=== PATIENT | female | born 1950 | race Caucasian/White ===

== ENCOUNTER → 2016-12-27 | Outpatient (CLI) | payer MEDICARE ==
[2016-12-27 14:38] VITALS: RESP 16; TEMP 98.3
[2016-12-27 14:42] VITALS: BMI 41.2
[2016-12-27 15:23] LABS: EKG EKG PERFORMED
[2016-12-27 16:00] LABS: CH 31.1; CHCM 32.2; HCT 41.5 % (34.0-46.0); HDW 2.29; HGB 13.4 gm/dL (11.4-16.0); MCH 31.3 pg (25.0-35.0); MCHC 32.3 g/dL (31.0-37.0); Mean Platelet Volume 7.7; RBC 4.28 m/uL (3.80-5.40); RDW 13.3 % (11.5-15.5)
[2016-12-27 16:28] LABS: ALT 25 U/L (9-52); AST 27 U/L (14-36); Alkaline Phosphatase 92 U/L (38-126); Anion Gap 11 mmol/L; Blood Urea Nitrogen 29 mg/dL (7-17); Calcium 10.6 mg/dL (8.4-10.2); Carbon Dioxide 28 mmol/L (22-30); Chloride 102 mmol/L (98-107); Cholesterol 213 mg/dL (<200); Glucose 92 mg/dL (74-99); HDL Cholesterol 73 mg/dL (40-60); Iron 111 ug/dL (37-170); Non-African American GFR(MDRD) 45 (>60 ml/min/1.73 sqM); Potassium 5.1 mmol/L (3.5-5.1); Sodium 141 mmol/L (137-145); Total Bilirubin 0.3 mg/dL (0.2-1.3); Total Protein 7.8 g/dL (6.3-8.2); Triglycerides 119 mg/dL (<150)
[2016-12-27 16:36] LABS: % Iron Saturation 37.5 % (20-50); Total Iron Binding Capacity 296 ug/dL (265-497)
[2016-12-27 17:34] LABS: Vitamin B12 822 pg/mL
[2016-12-27 19:48] LABS: Hemoglobin A1C 5.6 % (4.2-6.1)
--- NOTE | 2017-01-26 22:57 | P.PN ---
Progress Note - Text DATE OF SERVICE: 12/27/2016 CHIEF COMPLAINT: Initial bariatric assessment. HISTORY OF PRESENT ILLNESS: Mary Sears is a 66-year-old female who comes in with long-standing history of morbid obesity. Separately, she has history of gastroesophageal reflux disease where she had emergent hiatal hernia repair done. She then comes back with recurrent symptoms. At her 5-foot and 3/4-inch frame, her ideal body weight is 127 pounds. She comes in weighing 216 pounds. She is 89 pounds over weight. Body mass index is 41.2. She has undergone medical supervised weight loss with minimal improvement of her weight. Now, she presents for further evaluation and management. She has completed pulmonary evaluation and consultation. She is yet get a psych assessment. Now, she is looking for further evaluation and management. PAST MEDICAL HISTORY: 1. Gastroesophageal reflux disease. 2. Sleep apnea. 3. Hypertensive heart disease. 4. Osteoarthritis of bilateral knees. 5. Osteoarthritis of bilateral hips. PAST SURGICAL HISTORY: 1. Previous history of diaphragmatic hiatal hernia now with recurrence. 2. Appendectomy. 3. Hysterectomy. 4. Fibroid removal. MEDICATIONS: 1. Vitamin D. 2. Naproxen. 3. Valsartan hydrochlorothiazide. ALLERGIES: MORPHINE. SOCIAL HISTORY: Lifelong nontobacco user. FAMILY HISTORY: Pertinent for morbid obesity including hypertension. ORGAN SYSTEMS: CONSTITUTIONAL: [place] body weight of 127 pounds. She is 89 pounds overweight. Present weight 216 pounds. HEENT: No troubles with vision, hearing or dysphagia. ENDOCRINE: No reports of thyroid disorders or blood sugar glucose intolerance. RESPIRATORY: History of obstructive sleep apnea. No recent pneumonias. She does have intermittent aspiration secondary to her severity of reflux disease. CARDIOVASCULAR: History of hypertension. No reports of palpitations. No reports of chest pain or heart attack. GASTROINTESTINAL: Severe gastroesophageal reflux disease. No current fatty food intolerance. MUSCULOSKELETAL: History of diffuse osteoarthritis including bilateral hips and knees. NEURO: No reports of stroke or seizure disorder. PSYCH: No reports of depression or suicidal ideation. HEMATOLOGIC: No reports of DVTs or pulmonary embolism. PHYSICAL EXAM: VITAL SIGNS: 98.3, 16. Height of 5-foot 3/4-inch frame, 216 pounds. Body mass index 41.2. GENERAL: Well-developed female in no acute distress. HEENT: No scleral icterus. Extraocular movements grossly intact. Moist oral mucosa. NECK: Supple. No lymphadenopathy. CHEST: Nonlabored respirations. Equal bilateral excursions. CARDIOVASCULAR: Regular rate and rhythm. ABDOMEN: Protuberant, soft, nontender, nondistended. MUSCULOSKELETAL: No clubbing, cyanosis or edema. NEURO: No focal or lateralizing signs. LABS: Bariatric metabolic panel demonstrates elevated white count of 13,000. BUN elevated at 29. Creatinine elevated at 1.2. Calcium elevated at 10.6. Cholesterol elevated at 213. LDL elevated at 116. HDL elevated at 73. Vitamin D is low at 28.0. Thyroid stimulating hormone is within normal limits. EKG reviewed and demonstrating findings consistent with occasional PVCs. ASSESSMENT: 1. Morbid obesity due to excess calories. 2. Body mass index 41.2. 3. Leukocytosis of unclear etiology. 4. Hypertensive nephropathy. 5. Hypercalcemia. 6. Hypercholesterolemia. 7. Vitamin D deficiency. 8. Metabolic syndrome. 9. Obstructive sleep apnea. 10. Osteoarthritis of bilateral knees. 11. Osteoarthritis of the bilateral hips. PLAN: 1. As she has previous hiatal hernia repair, this also puts her at risk for increased complication such as stricture as well as dysphagia and abdominal pain. 2. The [place] [facility] data was also reviewed demonstrating potential outcomes including weight loss given her procedure of choice as a gastric bypass. 3. She is also pending psych assessment in the interim. 4. She does have PVCs, however, she has been medically cleared by her monologist as well. 5. DVT prophylaxis. 6. Antibiotic prophylaxis. 7. Inpatient hospitalization anticipated over 2 nights. 8. A second generation bariatric consent form was reviewed in detail including potential risks of leaks which she and her family demonstrated an understanding. 9. Recommend followup upon completion of her bariatric profile. 10. She does have elevated white count which her laboratory results should be repeated.
== END | disposition home or self-care (01) ==
LOC: BARWHC3 13:54
PROVIDERS: ATTEND Surgery Plastic and Reconstructive Surgery
DX: Z01.818 Encounter for other preprocedural examination (principal); E89.1 Postprocedural hypoinsulinemia; D50.8 Other iron deficiency anemias; E44.0 Moderate protein-calorie malnutrition; E55.9 Vitamin D deficiency, unspecified; Z68.41 Body mass index [BMI] 40.0-44.9, adult; I11.9 Hypertensive heart disease without heart failure; G47.30 Sleep apnea, unspecified
CPT/HCPCS: 84425; 80061; 80053; 82607; 82728; 83036; 82746; 83540; 83550; 84443; 85027; 82306; 93005; 36415; G0463; 99211

== ENCOUNTER → 2017-01-10 | Outpatient (CLI) | payer MEDICARE ==
[2017-01-10 16:01] VITALS: BP 164/85; PULSE 76; RESP 16; TEMP 98.3; BMI 41.2
--- NOTE | 2017-01-30 20:50 | P.PN ---
Progress Note - Text DATE OF SERVICE: 01/10/2017 CHIEF COMPLAINT: Bariatric assessment. HISTORY OF PRESENT ILLNESS: Mary Sears is a 66-year-old female who presented to the bariatric center just 2 weeks ago. She comes in with history of morbid obesity. She has history of recurrent gastroesophageal reflux disease from a failed emergent hiatal hernia repair. As a result of her obesity, she has developed hypertensive heart disease, sleep apnea, and osteoarthritis. At her 5- foot and 3/4-inch frame, her ideal body weight is 127 pounds. She comes in weighing 216 pounds. Her weight has been unchanged. She has tried weight loss through caloric restriction without any success of weight loss. She is 89 pounds over weight. Body mass index is 41.2. Now, she presents for a definitive anti-reflux operation such as a gastric bypass. She is accompanied by her daughter. PAST MEDICAL HISTORY: 1. Gastroesophageal reflux disease. 2. Sleep apnea. 3. Hypertensive heart disease. 4. Osteoarthritis of bilateral knees. 5. Osteoarthritis of bilateral hips. PAST SURGICAL HISTORY: 1. Previous history of diaphragmatic hiatal hernia now with recurrence. 2. Appendectomy. 3. Hysterectomy. 4. Fibroid removal. 5. Upper endoscopy. MEDICATIONS: 1. Vitamin D. 2. Naproxen. 3. Valsartan hydrochlorothiazide. ALLERGIES: MORPHINE. SOCIAL HISTORY: Lifelong nontobacco user. FAMILY HISTORY: Pertinent for morbid obesity including hypertension. ORGAN SYSTEMS: CONSTITUTIONAL: [place] body weight of 127 pounds. She is 89 pounds overweight. Present weight 216 pounds. HEENT: No troubles with vision, hearing or dysphagia. ENDOCRINE: No reports of thyroid disorders or blood sugar glucose intolerance. RESPIRATORY: History of obstructive sleep apnea. No recent pneumonias. She does have intermittent aspiration secondary to her severity of reflux disease. CARDIOVASCULAR: History of hypertension. No reports of palpitations. No reports of chest pain or heart attack. GASTROINTESTINAL: Severe gastroesophageal reflux disease. No current fatty food intolerance. MUSCULOSKELETAL: History of diffuse osteoarthritis including bilateral hips and knees. NEURO: No reports of stroke or seizure disorder. PSYCH: No reports of depression or suicidal ideation. HEMATOLOGIC: No reports of DVTs or pulmonary embolism. PHYSICAL EXAM: VITAL SIGNS: Height of 5-foot 3/4-inch frame, 216 pounds. Body mass index 41.2. Vital Signs Temp 98.3 F 01/10/17 15:53 Pulse 76 01/10/17 15:53 Resp 16 01/10/17 15:53 BP 164/85 01/10/17 15:53 Pulse Ox GENERAL: Well-developed female in no acute distress. HEENT: No scleral icterus. Extraocular movements grossly intact. Moist oral mucosa. NECK: Supple. No lymphadenopathy. CHEST: Nonlabored respirations. Equal bilateral excursions. CARDIOVASCULAR: Regular rate and rhythm. ABDOMEN: Protuberant, soft, nontender, nondistended. MUSCULOSKELETAL: No clubbing, cyanosis or edema. NEURO: No focal or lateralizing signs. LABS: Laboratory Last Values WBC 13.0 k/uL (3.8-10.6) H 12/27/16 15: RBC 4.28 m/uL (3.80-5.40) 12/27/16 15:17 Hgb 13.4 gm/dL (11.4-16.0) 12/27/16 15:17 Hct 41.5 % (34.0-46.0) 12/27/16 15:17 MCV 97.0 fL (80.0-100.0) 12/27/16 15:17 MCH 31.3 pg (25.0-35.0) 12/27/16 15:17 MCHC 32.3 g/dL (31.0-37.0) 12/27/16 15:17 RDW 13.3 % (11.5-15.5) 12/27/16 15:17 Plt Count 384 k/uL (150-450) 12/27/16 15:17 Sodium 141 mmol/L (137-145) 12/27/16 15:17 Potassium 5.1 mmol/L (3.5-5.1) 12/27/16 15:17 Chloride 102 mmol/L (98-107) 12/27/16 15:17 Carbon Dioxide 28 mmol/L (22-30) 12/27/16 15:17 Anion Gap 11 mmol/L 12/27/16 15:17 BUN 29 mg/dL (7-17) H 12/27/16 15:17 Creatinine 1.20 mg/dL (0.52-1.04) H 12/27/16 15:17 Est GFR (MDRD) Af Amer 54 (>60 ml/min/1.73 sqM) 12/27/16 15:17 Est GFR (MDRD) Non-Af 45 (>60 ml/min/1.73 sqM) 12/27/16 15:17 Glucose 92 mg/dL (74-99) 12/27/16 15:[address] Glu mg/dL 114 mg/dL 12/27/16 15:17 Hemoglobin A1c 5.6 % (4.2-6.1) 12/27/16 15:17 Calcium 10.6 mg/dL (8.4-10.2) H 12/27/16 15:17 Iron 111 ug/dL (37-170) 12/27/16 15:17 TIBC 296 ug/dL (265-497) 12/27/16 15:17 % Saturation 37.5 % (20-50) 12/27/16 15:17 Ferritin 15 ng/mL (11-264) 12/27/16 15:17 Total Bilirubin 0.3 mg/dL (0.2-1.3) 12/27/16 15:17 AST 27 U/L (14-36) 12/27/16 15:17 ALT 25 U/L (9-52) 12/27/16 15:17 Alkaline Phosphatase 92 U/L (38-126) 12/27/16 15:17 Total Protein 7.8 g/dL (6.3-8.2) 12/27/16 15:17 Albumin 4.6 g/dL (3.5-5.0) 12/27/16 15:17 Triglycerides 119 mg/dL (<150) 12/27/16 15:17 Cholesterol 213 mg/dL (<200) H 12/27/16 15:17 LDL Cholesterol, Calc 116 mg/dL (0-99) H 12/27/16 15:17 HDL Cholesterol 73 mg/dL (40-60) H 12/27/16 15:17 Vitamin B1 52 ug/L (38-122) 12/27/16 15:17 Vitamin B12 822 pg/mL 12/27/16 15:17 Vitamin D 25-Hydroxy 28.0 ng/mL (30.0-100.0) L 12/27/16 15:17 Folate 8.50 ng/mL 12/27/16 15:17 TSH 1.500 mIU/L (0.465-4.680) 12/27/16 15:17 EKG EKG PERFORMED 12/27/16 15:17 EKG reviewed and demonstrating findings consistent with occasional PVCs. ASSESSMENT: 1. Morbid obesity due to excess calories. 2. Body mass index 41.2. 3. Leukocytosis of unclear etiology. 4. Hypertensive nephropathy. 5. Hypercalcemia. 6. Hypercholesterolemia. 7. Vitamin D deficiency. 8. Metabolic syndrome. 9. Obstructive sleep apnea. 10. Osteoarthritis of bilateral knees. 11. Osteoarthritis of the bilateral hips. 12. Hypertensive nephropathy, stage 2 renal disease. 13. Leukocytosis. PLAN: 1. Recommend cardiac risk assessment for her abnormal EKG. 2. Recommend bariatric dietitian education on gastrectomy diets. 3. She has history of previous gastric surgery which puts her at risk for complications from revisional surgery. Risks including leak, stricture, bleeding , infection, need for further surgery was described in detail. 4. An 8-page second generation consent form was reviewed in detail. 5. Inpatient hospitalization over 2 nights advised. 6. Recommend repeat CBC for elevated WBC. 7. Recommend robotic approach revision to a gastric bypass as an anti-reflux and bariatric procedure. 8. DVT prophylaxis. 9. Antibiotic prophylaxis. 10. Recommend 2 week low calorie high protein diet advised. 11. I also reviewed with her family that intra-operative findings that may prohibit her gastric bypass may be aborted. 12. Recommend vitamin D supplement of 1000 to 5000 units daily.
== END | disposition home or self-care (01) ==
LOC: BARWHC3 14:26
PROVIDERS: ATTEND Surgery Plastic and Reconstructive Surgery
DX: E66.01 Morbid (severe) obesity due to excess calories (principal); D72.829 Elevated white blood cell count, unspecified; I10 Essential (primary) hypertension; G62.9 Polyneuropathy, unspecified; E83.52 Hypercalcemia; E78.00 Pure hypercholesterolemia, unspecified; E55.9 Vitamin D deficiency, unspecified; E88.81 Metabolic syndrome and other insulin resistance; G47.33 Obstructive sleep apnea (adult) (pediatric); M17.0 Bilateral primary osteoarthritis of knee; M16.0 Bilateral primary osteoarthritis of hip; I12.9 Hypertensive chronic kidney disease with stage 1 through stage 4 chronic kidney disease, or unspecified chronic kidney disease; N18.2 Chronic kidney disease, stage 2 (mild); Z68.41 Body mass index [BMI] 40.0-44.9, adult; Z79.1 Long term (current) use of non-steroidal anti-inflammatories (NSAID)
CPT/HCPCS: 99211

== ENCOUNTER 2017-02-26 11:09 | Day surgery (SDC) | payer MEDICARE ==
[2017-02-20 15:22] VITALS: BMI 41.3
[~2017-02-26 11:09] MED LIST: ALPRAZolam 0.25 MG TAB PO PRN; ALPRAZolam 0.5 MG TAB PO PRN; ASPIRIN 325 MG TAB PO STA; ATORVASTATIN 80 MG TAB PO STA; NITROGLYCERIN SL TABS 0.4 MG TAB SUBLINGUAL PRN; SODIUM CHLORIDE 0.9% 1,000 ML in EMPTY BAG 1 BAG IV ONE
[2017-02-26 11:41] LABS: Basophils % (A) 0 %; CH 30.9; CHCM 33.4; Eosinophils # (A) 0.2 k/uL (0-0.7); Eosinophils % (A) 2 %; HCT 42.1 % (34.0-46.0); HDW 2.34; Luc # (Auto) 0.15; Luc % (Auto) 1; Lymphocytes # (A) 2.7 k/uL (1.0-4.8); Lymphocytes % (A) 23 %; MCH 30.9 pg (25.0-35.0); MCHC 33.3 g/dL (31.0-37.0); Mean Platelet Volume 7.7; Monocytes # (A) 0.6 k/uL (0-1.0); Monocytes % (A) 5 %; Neutrophils % (A) 68 %; RBC 4.52 m/uL (3.80-5.40); RDW 12.8 % (11.5-15.5); WBC 11.7 k/uL (3.8-10.6); WBC (Perox) 12.23
[2017-02-26 11:44] VITALS: RESP 18
[2017-02-26 12:52] LABS: Calcium 9.2 mg/dL (8.4-10.2)
[2017-02-26] MEDS ORDERED: MIDAZOLAM 2 MG/2 ML VIAL IV ONE (13:16)
[2017-02-26] MEDS ORDERED: LIDOCAINE 2% INJ 20 MG/ML SQ ONE (13:20)
[2017-02-26] MEDS ORDERED: IODIXANOL 320 MG/ML 100 ML INTRAARTER ONE (13:39)
[2017-02-26] MEDS ORDERED: RX INFO: IV CONTRAST WAS GIVEN 1 EACH MISC MISCELLANE PRN (13:43)
[2017-02-26] MEDS ORDERED: SODIUM CHLORIDE 0.9% 1,000 ML IV SCH (13:45)
[2017-02-26 16:47] VITALS: TEMP 97.9
[2017-02-26 16:49] VITALS: BP 132/50; PULSE 74
--- NOTE | 2017-02-27 12:04 | CC ---
DATE OF SERVICE: 02/26/2017 PERFORMING PHYSICIAN: Adonis Marquez MD, newspaper photojournalist. PROCEDURE PERFORMED: 1. Selective right and left coronary angiogram. 2. Left heart catheterization. INDICATIONS: This is a pleasant 66-year-old female patient who was going to have hiatal hernia surgery in the next few weeks. She underwent a myocardial perfusion imaging stress test and that showed small area of ischemia involving the anterior wall. In view of that she was scheduled to undergo a heart catheterization. APPROACH: Right common femoral artery. COMPLICATION: None. LEVEL OF SEDATION: Moderate with sedation length of 23 minutes. PROCEDURE DESCRIPTION: After obtaining an informed consent, the patient was brought to the cardiac labor employment associate. The right common femoral artery was cannulated using micropuncture technique, the micropuncture wire passed easily then I placed in 6 Fijian sheath in the right common femoral artery. I did after that selective right and left coronary angiogram using JR4 and JL4 catheters. Left heart catheterization was performed using JR4 catheter which flipped into the LV then I did pull back. The procedure was completed without any complication. SELECTIVE CORONARY ANGIOGRAM: 1. The RCA is angiographically normal. This is a large caliber vessel and it is a dominant vessel. 2. The left main is angiographically normal. This bifurcates into the left circumflex and left anterior descending artery. 3. The left circumflex is a large caliber vessel. It is a nondominant vessel. The proximal circumflex appeared to have mild disease only. The mid and distal circumflex appeared to be angiographically normal. 4. The left anterior descending artery: The proximal LAD appeared to have mild disease only and gives rise into the first diagonal branch, which has a lesion in the mid portion about 70%. It is about 2 to 2.5 vessel. The mid LAD appeared to have mild disease only and the LAD distally appeared to have mild disease only as well. HEMODYNAMICS: The left ventricular end-diastolic pressure was ( ) mmHg and no gradient was identified across the aortic valve. CONCLUSION: Severe disease involving the first diagonal branch of the left anterior descending artery, which is about 2.0 vessel. POSTPROCEDURE MANAGEMENT: 1. The patient is going to be cleared to have the surgery. 2. PCI of the diagonal after the surgery. [facility]
== END 2017-02-26 18:30 | disposition home or self-care (01) ==
LOC: CATHCVL 11:09 → 3OBS 13:37 → CATHCVL 18:30
PROVIDERS: ATTEND Internal Medicine Interventional Cardiology
DX: I25.110 Atherosclerotic heart disease of native coronary artery with unstable angina pectoris (principal); I10 Essential (primary) hypertension; Z87.891 Personal history of nicotine dependence; Z79.1 Long term (current) use of non-steroidal anti-inflammatories (NSAID); Z79.899 Other long term (current) drug therapy; Z88.5 Allergy status to narcotic agent
CPT/HCPCS: 93458; 80048; 85025; 99152; 99153; C1769 ×3; C1894; C1760; J2001; J2250; Q9967

== ENCOUNTER 2018-02-25 11:08 | Day surgery (SDC) | payer MEDICARE ==
[2018-02-18 13:16] VITALS: BMI 39.8
[2018-02-25 11:33] VITALS: TEMP 98
[2018-02-25] MEDS ORDERED: MIDAZOLAM 2 MG/2 ML VIAL ONE ×2 (12:44→13:00)
[2018-02-25] MEDS ORDERED: VERAPAMIL 2.5 MG/ML 2 ML AMP ONE (12:44)
[2018-02-25] MEDS ORDERED: LIDOCAINE 1% INJ 10MG/ML (20 ML MDV) SQ ONE ×3 (12:58→13:09)
[2018-02-25] MEDS ORDERED: MIDAZOLAM 2 MG/2 ML VIAL IVP ONE ×2 (12:59→13:05)
[2018-02-25] MEDS ORDERED: HEPARIN SODIUM 1,000 UN/ML (10ML VL) IVPB ONE (13:05)
[2018-02-25] MEDS ORDERED: VERAPAMIL 2.5 MG/ML 2 ML AMP IVP ONE (13:06)
[2018-02-25] MEDS ORDERED: VERAPAMIL SYRINGE (5 MG/10 ML) INTRAARTER ONE ×2 (13:06→13:20)
[2018-02-25] MEDS ORDERED: LIDOCAINE 1% INJ 10MG/ML (20 ML MDV) ONE (13:07)
[2018-02-25] MEDS ORDERED: fentaNYL (PF) 50 MCG/ML 2 ML AMP ONE (13:07)
[2018-02-25] MEDS ORDERED: fentaNYL (PF) 50 MCG/ML 2 ML AMP IVP ONE (13:09)
[2018-02-25] MEDS ORDERED: RX INFO: IV CONTRAST WAS GIVEN 1 EACH MISC MISCELLANE PRN (13:24)
[2018-02-25] MEDS ORDERED: IOPAMIDOL-370 125ML BTL INJ ONE (13:25)
[2018-02-25] MEDS ORDERED: SODIUM CHLORIDE 0.9% 1,000 ML IV SCH (13:30)
--- NOTE | 2018-02-25 14:43 | CC ---
CARDIAC CATHETERIZATION REPORT DATE OF SERVICE: 02/25/2018 PERFORMING PHYSICIAN: Adonis Marquez MD, Career Developer. PROCEDURE PERFORMED: Selective right and left coronary angiogram. INDICATION: This is a pleasant 67-year-old female patient with known history of coronary artery disease as well as hypertension and dyslipidemia who underwent heart catheterization a year ago and that showed intermediate disease involving the first diagonal branch of the LAD. At that point, the patient was treated medically. She continues to have chest discomfort and because of that, a heart catheterization was recommended. APPROACH: 1. Right radial artery. 2. Right common femoral artery. COMPLICATION: None LEVEL OF SEDATION: Moderate with sedation length of 25 minutes. PROCEDURE DESCRIPTION: After obtaining an informed consent, the patient was brought to the cardiac equipment operator/laborer. Initially, the right radial artery was cannulated using micropuncture technique, the micropuncture wire passed easily, then I placed a 6-Honduran sheath in the right radial artery. I attempted advancing JR4 catheter from the right radial sheath, but the patient was experiencing severe right elbow pain. Because of that, I decided to abort the radial approach and access the right common femoral artery. The right common femoral artery was cannulated using micropuncture technique. The micropuncture wire passed easily, then I placed a 6-Honduran sheath in the right common femoral artery. After that, I did selective right and left coronary angiogram using JR4 and JL3.5 catheters. Left heart catheterization was performed using JR4 catheter. The procedure was completed without any complication. SELECTIVE CORONARY ANGIOGRAM: 1. The RCA is a large caliber vessel and it is a dominant vessel. The proximal RCA, mid RCA and distal RCA are angiographically normal. The RCA distally bifurcates into PDA and PLV branches. The PDA branch of the RCA has disease in the midportion about 50%. 2. The left main is angiographically normal. It bifurcates into the circumflex and left anterior descending artery. 3. The left circumflex is a large caliber vessel and it is an none dominant vessel. The proximal left circumflex has a disease in the midportion about 50%. The mid and distal circumflex appeared to be angiographically normal. 4. The LAD: The proximal LAD appeared to be angiographically normal. It gives rise into a medium-sized diagonal branch which has disease in the midportion about 50%. The mid and distal LAD appeared to be angiographically normal. HEMODYNAMICS: The left ventricular end-diastolic pressure which was 12 mmHg and no gradient was identified across the aortic valve. CONCLUSION: 1. Intermediate triple-vessel coronary artery disease. 2. Normal left ventricular end-diastolic pressure. COMMENTS: Postprocedure management with medical treatment and follow up with the patient. ANTON / TEJ: [id number] /
[2018-02-25 15:30] VITALS: RESP 18
[2018-02-25] MEDS ORDERED: METOPROLOL TARTRATE 5 MG/5 ML VIAL IVP ONE (16:04)
[2018-02-25] MEDS ORDERED: hydrALAZINE HCL 20 MG/ML 1 ML VIAL ONE (16:05)
[2018-02-25] MEDS ORDERED: hydrALAZINE HCL 20 MG/ML 1 ML VIAL IVP STA (16:26)
[2018-02-25] MEDS ORDERED: METOPROLOL TARTRATE 5 MG/5 ML VIAL IVP STA (16:27)
[2018-02-25 18:41] VITALS: BP 104/46; PULSE 82
== END 2018-02-25 22:35 | disposition home or self-care (01) ==
LOC: CATHCVL 11:08 → 3OBS 14:59 → CATHCVL 22:35
PROVIDERS: ATTEND Internal Medicine Interventional Cardiology
DX: I25.110 Atherosclerotic heart disease of native coronary artery with unstable angina pectoris (principal); I10 Essential (primary) hypertension; Z72.0 Tobacco use; E78.5 Hyperlipidemia, unspecified; E78.00 Pure hypercholesterolemia, unspecified; Z79.82 Long term (current) use of aspirin; Z79.899 Other long term (current) drug therapy; Z88.5 Allergy status to narcotic agent
CPT/HCPCS: 93458; 85347; C1894 ×2; C1769 ×2; J2250; J0360; J2001; J3010; J1644; Q9967

== ENCOUNTER 2018-06-14 10:01 | Day surgery (SDC) | payer MEDICARE ==
[2018-06-06 16:22] VITALS: BMI 37.0
--- NOTE | 2018-06-14 06:42 | P.GSHP ---
History of Present Illness H&P Date: 06/14/18 CHIEF COMPLAINT: Paraesophageal hiatal hernia with gastroesophageal reflux disease. HISTORY OF PRESENT ILLNESS: The patient is a 67-year-old female who presents with paraesophageal hiatal hernia. She has completed an esophageal manometry including upper endoscopy workup. Now she presents for surgical intervention. PAST MEDICAL HISTORY: Please see list. PAST SURGICAL HISTORY: Please see list. MEDICATIONS: Please see list. ALLERGIES: Please see list. SOCIAL HISTORY: No illicit drug use FAMILY HISTORY: No reports of Crohn disease or ulcerative colitis. REVIEW OF ORGAN SYSTEMS: CONSTITUTIONAL: No reports of fevers or chills. GI: Denies any blood in stools or constipation. PHYSICAL EXAM: VITAL SIGNS: Stable GENERAL: Well-developed pleasant and in no acute distress. HEENT: No scleral icterus. Extraocular movements grossly intact. Moist buccal mucosa. NECK: Supple without lymphadenopathy. CHEST: Unlabored respirations. Equal bilateral excursions. CARDIOVASCULAR: Regular rate and rhythm. Distal 2+ pulses. ABDOMEN: Soft, nondistended. No peritoneal signs. MUSCULOSKELETAL: No clubbing, cyanosis, or edema. SKIN: Well-perfused. Good skin turgor. MANOMETRY: Shows no evidence of achalasia or scleroderma. ASSESSMENT: 1. Diaphragmatic paraesophageal hiatal hernia with severe gastroesophageal reflux disease. PLAN: 1. Recommend proceeding with a robotic paraesophageal hiatal hernia with possible mesh. 2. Benefits and risks of surgical intervention was discussed including possibility of open technique. 3. Inpatient hospitalization recommended of 2 nights 4. DVT prophylaxis. 5. Antibiotic prophylaxis. 6. She has also completed a very low caloric high-protein diet to address underlying hepatomegaly. Past Medical History Past Medical History: Hyperlipidemia, Hypertension Additional Past Medical History / Comment(s): states current hiatal hernia History of Any Multi-Drug Resistant Organisms: None Reported Past Surgical History: Appendectomy, Heart Catheterization, Hernia Repair, Hysterectomy Additional Past Surgical History / Comment(s): fibroid tumor removal, hiatal hernia Past Anesthesia/Blood Transfusion Reactions: No Reported Reaction Additional Past Anesthesia/Blood Transfusion Reaction / Comment(s): no hx blood transfusion Smoking Status: Former smoker - Past Family History Mother Family Medical History: Deep Vein Thrombosis (DVT) Father History Unknown: Yes Family Medical History: No Reported History Medications and Allergies Home Medications Medication Instructions Recorded Confirmed Type Metoprolol Tartrate 25 mg PO BID 02/26/17 06/06/18 History Aspirin [Adult Low Dose Aspirin EC] 81 mg PO DAILY 02/18/18 06/06/18 History Lisinopril [Zestril] 5 mg PO DAILY 02/25/18 06/06/18 History Atorvastatin [Lipitor] 40 mg PO DAILY 06/06/18 06/06/18 History Allergies Allergy/AdvReac Type Severity Reaction Status Date / Time morphine AdvReac Nausea & Verified 06/06/18 16:18 Vomiting
[~2018-06-14 10:01] MED LIST changes: -ALPRAZolam 0.25 MG TAB PO PRN; -ALPRAZolam 0.5 MG TAB PO PRN; -ASPIRIN 325 MG TAB PO STA; -ATORVASTATIN 80 MG TAB PO STA; +DEXAMETHASONE SOD PHOSPHATE 10 MG/ML 1 ML VIAL IV ONE; +HEPARIN SODIUM,PORCINE 5,000 UNIT/ML 1 ML VIAL SQ ONE; +LIDOCAINE 1% 20 ML VIAL (10MG/ML) FOR IV START INTRADERMA PRN; -NITROGLYCERIN SL TABS 0.4 MG TAB SUBLINGUAL PRN; +ONDANSETRON 4 MG/2 ML VIAL IVP ONE; -SODIUM CHLORIDE 0.9% 1,000 ML in EMPTY BAG 1 BAG IV ONE; +ceFAZolin IN SWFI 2 GM/20 ML SYRINGE IVP ONE; +fentaNYL (PF) 50 MCG/ML 2 ML AMP IV PRN
[2018-06-14] MEDS: LACTATED RINGERS 1,000 ML IV SCH ×2 (10:44→13:14)
--- NOTE | 2018-06-14 11:23 | XR ---
EXAMINATION TYPE: XR chest 1V DATE OF EXAM: 06/14/2018 COMPARISON: NONE HISTORY: Presurgical study TECHNIQUE: Single AP portable frontal upright view of the chest is obtained. FINDINGS: Eventration of right hemidiaphragm is noted. There is no focal air space opacity, pleural e ffusion, or pneumothorax seen. The cardiac silhouette size is upper limits of normal. Retrocardiac o pacity consistent with moderate to large size hiatal hernia is present The osseous structures are in tact. IMPRESSION: No acute pulmonary process.
[2018-06-14 11:31] LABS: Basophils % (A) 0 %; Eosinophils # (A) 0.1 k/uL (0-0.7); Eosinophils % (A) 1 %; HCT 45.3 % (34.0-46.0); HGB 14.7 gm/dL (11.4-16.0); Lymphocytes # (A) 2.4 k/uL (1.0-4.8); Lymphocytes % (A) 25 %; MCHC 32.6 g/dL (31.0-37.0); MCV 95.1 fL (80.0-100.0); Mean Platelet Volume 7.5; Monocytes # (A) 0.7 k/uL (0-1.0); Monocytes % (A) 7 %; Neutrophils # (A) 6.3 k/uL (1.3-7.7); Neutrophils % (A) 65 %; Platelet Count 415 k/uL (150-450); RBC 4.76 m/uL (3.80-5.40); RDW 12.8 % (11.5-15.5); WBC 9.8 k/uL (3.8-10.6)
[2018-06-14 11:49] LABS: Albumin 4.3 g/dL (3.5-5.0); Calcium 10.1 mg/dL (8.4-10.2); Potassium 5.4 mmol/L (3.5-5.1); Prothrombin Time 10.2 sec (9.0-12.0); Total Bilirubin 0.7 mg/dL (0.2-1.3); Total Protein 7.8 g/dL (6.3-8.2)
--- NOTE | 2018-06-14 12:21 | P.PN ---
Progress Note - Text Progress Note Date: 06/14/18 Patient labs came back with new hyperkalemia including renal insufficiency. Discussion with anesthesia in agreement to cancel surgery for today with workup for renal disorder. Patient to be admitted for workup for renal disorder including correction of hyperkalemia.
[2018-06-14] MEDS ORDERED: ACETAMINOPHEN TAB 325 MG TAB PO PRN (12:22)
[2018-06-14] MEDS ORDERED: NALOXONE 0.4 MG/ML 1 ML VIAL IV PRN (12:22)
[2018-06-14] MEDS ORDERED: ONDANSETRON 4 MG/2 ML VIAL IVP PRN (12:22)
[2018-06-14] MEDS ORDERED: SODIUM CHLORIDE 0.9% 1,000 ML IV ONE ×2 (12:23→18:28)
[2018-06-14] MEDS ORDERED: IOPAMIDOL-300 CONTRAST 30 ML VIAL (ORAL USE) PO PRN (12:25)
[2018-06-14] MEDS: SODIUM CHLORIDE 0.9% 1,000 ML IV SCH (14:08)
--- NOTE | 2018-06-14 15:36 | FL ---
ESOPHOGRAM. HISTORY: Dysphagia hiatal hernia, previous hiatal hernia repair in 2004. 33 sec fl, 5 oz thin barium used. Esophagram was performed per the air contrast technique. The patient swallowed barium and effervesce nt crystals without difficulty or delay. Esophageal peristalsis and motility appear to be within normal limits. There is no evidence for filling defect, mass or diverticulum. Moderate to large paraesophageal hiatal hernia noted. Subsequently single contrast cervical esophagram was performed which fails demonstrate evidence for a spiration penetration or mass. IMPRESSION: Moderate to large paraesophageal hiatal hernia noted.
--- NOTE | 2018-06-14 15:46 | CT ---
EXAMINATION TYPE: CT chest abdomen wo con DATE OF EXAM: 06/14/2018 COMPARISON: None HISTORY: AB PAIN/NEAR SYNCOPE CT DLP: 519.4mGycm Unenhanced CT of the Chest, Abdomen and Pelvis Unenhanced CT of the chest ,abdomen is performed. The lack of intravenous contrast limits evaluation of the solid and hollow viscera. Oral contrast: Yes CT Chest: LUNGS: The lungs are clear and free of infiltrate or atelectasis. No pulmonary nodule or mass is det ected. No pleural effusion or CT evidence of interstitial lung disease. MEDIASTINUM: Thoracic aorta is of normal caliber. The heart is not enlarged. No evidence for media stinal mass or adenopathy. Large fixed hiatal hernia noted paraesophageal type. A portion of the panc reatic body and tail extends into the hernia sac. HILAR STRUCTURES: No evidence for mass. No hilar adenopathy is appreciated. OTHER: No significant abnormality. CONTRAST CT ABDOMEN AND PELVIS: LIVER/GB: No calcified gallstones. No space occupying hepatic lesion. Biliary tree is of normal ca liber. PANCREAS: See above. No inflammation. No distinct mass. SPLEEN: No splenic enlargement. No lesion seen. ADRENALS: No nodule. No thickening. KIDNEYS/BLADDER: Lobulated appearance of the kidneys. No hydronephrosis. No nephrolithiasis. No dis tinct renal mass. BOWEL: Normal appendix. Normal bowel caliber. No inflammation. LYMPH NODES: No greater than 1cm abdominal or pelvic lymph nodes are appreciated. AORTA: No significant abnormality. OSSEOUS STRUCTURES: No significant abnormality is seen. OTHER: No significant additional abnormality is seen. IMPRESSION: 1. Large paraesophageal hiatal hernia. 2. Portions of the pancreas reside within the hernia sac.
--- NOTE | 2018-06-14 16:11 | US ---
EXAMINATION TYPE: US kidneys/renal and bladder DATE OF EXAM: 06/14/2018 COMPARISON: CT 2018 CLINICAL HISTORY: renal insufficiency. Right flank pain EXAM MEASUREMENTS: Right Kidney: 8.4 x 3.8 x 3.8 cm Left Kidney: 8.5 x 3.7 x 4.5 cm Right Kidney: measures small in size, no hydronephrosis or nephrolithiasis seen Left Kidney: measures small in size, no hydronephrosis or nephrolithiasis seen Bladder: not fully distended Bladder is limited by incomplete distention. IMPRESSION: There is some lobulation of the renal cortex and increased echogenicity without evidence of hydroneph rosis or nephrolithiasis. Correlate for chronic medical renal disease.
[2018-06-15] MEDS: SODIUM CHLORIDE 0.9% 1,000 ML IV SCH (06:00)
[2018-06-15 08:01] LABS: Calcium 9.2 mg/dL (8.4-10.2); Magnesium 2.1 mg/dL (1.6-2.3); Phosphorus 3.3 mg/dL (2.5-4.5); Potassium 5.3 mmol/L (3.5-5.1)
[2018-06-15 09:24] VITALS: RESP 16
[2018-06-15] MEDS ORDERED: DEXTROSE 50%-WATER 50 ML SYRINGE IVP STA (09:46)
[2018-06-15] MEDS ORDERED: INSULIN REGULAR 100 UNIT/ML VIAL IV ONE (09:46)
--- NOTE | 2018-06-15 09:46 | P.NPCON ---
History of Present Illness - Reason for Consult acute renal failure - History of Present Illness Reason for consultation: Acute kidney injury and hyperkalemia History of present illness: Patient is a 67-year-old female seen in consultation for acute kidney injury and hyperkalemia. Patient's creatinine was 1.48 and potassium level was 5.4 on admission. She is currently maintained on normal saline at 70 mL an hour. Lisinopril is held. Potassium this morning is 5.3 and creatinine is 1.01. 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 Patient is noted to have a paraesophageal hernia and presented for surgical repair but the surgery was canceled due to electrolyte imbalance. She is currently resting in bed. No active complaints at this time. No vomiting or diarrhea. Admits to good urine output. No hematuria or dysuria. Denies regular use of NSAIDs. Denies family history of renal disease. Hemodynamically stable. Vital signs are stable. General: The patient appeared well nourished and normally developed. HEENT: Head exam is unremarkable. Neck is without jugular venous distension. LUNGS: Lungs are clear to auscultation and percussion. Breath sounds decreased. HEART: Rate and Rhythm are regular. First and second heart sounds normal. No murmurs, rubs or gallops. ABDOMEN: Abdominal exam reveals normal bowel sounds. Non-tender and non- distended. No evidence of peritonitis. EXTREMITITES: No clubbing, cyanosis, or edema. Past Medical History Past Medical History: Hyperlipidemia, Hypertension Additional Past Medical History / Comment(s): states current hiatal hernia History of Any Multi-Drug Resistant Organisms: None Reported Past Surgical History: Appendectomy, Heart Catheterization, Hernia Repair, Hysterectomy Additional Past Surgical History / Comment(s): fibroid tumor removal, hiatal hernia Past Anesthesia/Blood Transfusion Reactions: No Reported Reaction Additional Past Anesthesia/Blood Transfusion Reaction / Comment(s): no hx blood transfusion Past Psychological History: Depression Additional Psychological History / Comment(s): no current medication Smoking Status: Former smoker Past Alcohol Use History: None Reported Additional Past Alcohol Use History / Comment(s): smoked a few years as a teen Past Drug Use History: None Reported - Past Family History Mother Family Medical History: Deep Vein Thrombosis (DVT) Father History Unknown: Yes Family Medical History: No Reported History Medications and Allergies Home Medications Medication Instructions Recorded Confirmed Type Metoprolol Tartrate 25 mg PO BID 02/26/17 06/06/18 History Aspirin [Adult Low Dose Aspirin EC] 81 mg PO DAILY 02/18/18 06/06/18 History Lisinopril [Zestril] 5 mg PO DAILY 02/25/18 06/06/18 History Atorvastatin [Lipitor] 40 mg PO DAILY 06/06/18 06/06/18 History Allergies Allergy/AdvReac Type Severity Reaction Status Date / Time morphine AdvReac Nausea & Verified 06/06/18 16:18 Vomiting Physical Exam Vitals: Vital Signs Temp Pulse Resp BP BP Pulse Ox 06/15/18 09:22 87 16 142/79 95 06/14/18 23:35 98.1 F 78 14 115/73 97 06/14/18 20:00 98.1 F 74 18 106/68 94 L 06/14/18 15:36 97.6 F 81 12 159/82 98 06/14/18 13:02 98.0 F 65 16 135/82 98 06/14/18 10:32 98 F 68 18 151/68 98 Intake and Output 06/14/18 06/15/18 06/15/18 22:59 06:59 14:59 Intake Total 210 630 Balance 210 630 Intake: Intake, IV Titration 210 630 Amount Sodium Chloride 0.9% 1, 210 630 000 ml @ 70 mls/hr IV . [id number] [facility] Rx#:[id number] Other: Voiding Method Toilet # Voids 1 1 # Bowel Movements 1 Results - Lab Results Most recent lab results Calcium 9.2 mg/dL (8.4-10.2) 06/15/18 07:14 Phosphorus 3.3 mg/dL (2.5-4.5) 06/15/18 07:14 Magnesium 2.1 mg/dL (1.6-2.3) 06/15/18 07:14 06/14/18 10:57 06/15/18 07:14 Assessment and Plan Plan: Assessment: 1. Nonoliguric acute kidney injury mostly prerenal improved with IV hydration. Creatinine 1.48 on admission and is down to 1.01 today. 2. Mild hyperkalemia secondary to acute kidney injury and lisinopril. 3. Benign hypertension. Controlled. 4. Paraesophageal hernia. Gen. surgery following. 5. Rule out chronic kidney disease. Creatinine since November 2016 has been in the range of 1.2-1.4. Plan: Maintain normal saline at 70 mL an hour. 10 units of IV insulin with an amp of D50 now. Repeat potassium level this afternoon. Check urinalysis. Check renal ultrasound. Avoid GAVIN inhibitor due to hyperkalemia. Can use calcium channel braulio like amlodipine instead. Thank you for the consultation. I will continue to follow the patient with you during her hospital stay.
[2018-06-15 14:00] LABS: Appearance,Urine Clear (Clear); Bilirubin,Urine Negative (Negative); Blood,Urine Negative (Negative); Color,Urine Light Yellow; Glucose,Urine (UA) 3+ (Negative); Ketones,Urine Negative (Negative); Leukocyte Esterase,Urine Small (Negative); Nitrite,Urine Negative (Negative); PH, Urine 5.5 (5.0-8.0); Protein,Urine Negative (Negative); RBC,Urine 1 /hpf (0-5); Specific Gravity,Urine 1.014 (1.001-1.035); Squamous Epithelial Cell,Urine 1 /hpf (0-4); Urobilinogen,Urine <2.0 mg/dL (<2.0); WBC,Urine 1 /hpf (0-5)
--- NOTE | 2018-06-15 14:06 | P.GSCN ---
History of Present Illness Consult date: 06/15/18 Reason for Consult: Evaluation of paraesophageal hernia Requesting physician: Sole Ruano History of present illness: This is a 67-year-old female patient who is followed by Dr. Turpin out of [facility]. Patient has a past medical history significant for a paraesophageal hernia, gastroesophageal reflux disease, hypertension, hyperlipidemia, coronary artery disease with normal left ventricular end-diastolic pressures status post heart catheterization in January 2018, cataracts, history of that abnormal stress test showing anterior ischemia , depression, nonoliguric acute kidney injury, hyperkalemia with an admission potassium of 5.4, and history of fibroid tumor with hysterectomy. The patient was admitted to [facility] to undergo an elective robotic- assisted paraesophageal hiatal hernia repair to be performed by Dr. Sole Ruano. Patient has a past medical history of a hiatal hernia repair completed at [facility] in 2004. The patient reports in the last couple of years she has had complaints of progressive shortness of breath and abdominal pain after eating. She denies any complaints of fever, nausea, vomiting, or change in bowel or bladder function. The patient was admitted to the hospital some lab work was completed which showed a potassium level of 5.4, BUN 37 and creatinine 1.48. Subsequently her paraesophageal hiatal hernia repair was put on due to her lab findings and nephrology was consulted. A computed tomography scan of her abdomen and chest were completed which demonstrated a large paraesophageal hiatal hernia and portions of the pancreas reside within the hernia sac. Due to the patient's history of previous hiatal hernia repair and the large paraesophageal hiatal hernia a consult was placed to Dr. Philip Rodriguez from cardiothoracic surgery to evaluate the patient and give treatment recommendations. Review of Systems A 14 point review of systems was completed and was negative except as mentioned in HPI. Past Medical History Past Medical History: Coronary Artery Disease (CAD) (Heart cath completed in January 2018.), Eye Disorder (History of cataracts), GERD/Reflux, Hyperlipidemia, Hypertension Additional Past Medical History / Comment(s): states current hiatal hernia History of Any Multi-Drug Resistant Organisms: None Reported Past Surgical History: Appendectomy, Heart Catheterization, Hernia Repair, Hysterectomy Additional Past Surgical History / Comment(s): fibroid tumor removal, hiatal hernia, heart catheterization in January 2018 demonstrated a 50% stenosis to her PDA coronary artery, a 50% stenosis to her midportion of her circumflex coronary artery, and a 50% stenosis to her mid left anterior descending coronary artery. Past Anesthesia/Blood Transfusion Reactions: No Reported Reaction Additional Past Anesthesia/Blood Transfusion Reaction / Comm: no hx blood transfusion Past Psychological History: Depression Additional Psychological History / Comment(s): no current medication Smoking Status: Former smoker (Quit over 40 years ago) Past Alcohol Use History: None Reported Additional Past Alcohol Use History / Comment(s): smoked a few years as a teen Past Drug Use History: None Reported - Past Family History Mother Additional Family Medical History / Comment(s): Past away from a pulmonary embolus. Father History Unknown: Yes Medications and Allergies Home Medications Medication Instructions Recorded Confirmed Type Metoprolol Tartrate 25 mg PO BID 02/26/17 06/06/18 History Aspirin [Adult Low Dose Aspirin EC] 81 mg PO DAILY 02/18/18 06/06/18 History Lisinopril [Zestril] 5 mg PO DAILY 02/25/18 06/06/18 History Atorvastatin [Lipitor] 40 mg PO DAILY 06/06/18 06/06/18 History Allergies Allergy/AdvReac Type Severity Reaction Status Date / Time morphine AdvReac Nausea & Verified 06/06/18 16:18 Vomiting Surgical - Exam Vital Signs Temp Pulse Resp BP Pulse Ox 98 F 68 18 151/68 98 06/14/18 10:32 06/14/18 10:32 06/14/18 10:32 06/14/18 10:32 06/14/18 10:32 - General well developed, well nourished, no distress, no pain, obese - Eyes PERRL, normal ocular movement - ENT normal pinna, normal nares, normal mucosa, no hearing loss, no congestion, poor fdc - Neck Neck is supple, no lymphadenopathy. no masses, no bruits, trachea midline, no venous distension - Respiratory Lung sounds are essentially clear throughout. Respirations are symmetrical and nonlabored. No wheezing or crackles heard. Oxygen saturation on room air 97%. - Cardiovascular Regular rhythm and rate. S1 and S2 present, negative for S3, gallop or murmur. No edema present. - Abdomen Abdomen soft, nontender and nondistended. Active bowel sounds to all 4 abdominal quadrants. No guarding or rigidity. No organomegaly. - Genitourinary Deferred - Rectum Deferred - Integumentary No clubbing or cyanosis. no rash, no growths, no abnormal pigmentation - Neurologic normal coordination, normal sensation - Musculoskeletal normal gait, normal posture - Psychiatric oriented to time, oriented to person, oriented to place, speech is normal, memory intact Results - Labs 06/14/18 10:57 06/15/18 07:14 Abnormal Lab Results - Last 24 Hours (Table) 06/15/18 Range/Units 07:14 Potassium 5.3 H (3.5-5.1) mmol/L Chloride 111 H (98-107) mmol/L BUN 26 H (7-17) mg/dL Glucose 106 H (74-99) mg/dL Diabetes panel 06/14/18 06/15/18 Range/Units 19:28 07:14 Sodium 140 (137-145) mmol/L Potassium 4.9 5.3 H (3.5-5.1) mmol/L Chloride 111 H (98-107) mmol/L Carbon Dioxide 24 (22-30) mmol/L BUN 26 H (7-17) mg/dL Creatinine 1.01 (0.52-1.04) mg/dL Glucose 106 H (74-99) mg/dL Calcium 9.2 (8.4-10.2) mg/dL Calcium panel 06/15/18 Range/Units 07:14 Calcium 9.2 (8.4-10.2) mg/dL Phosphorus 3.3 (2.5-4.5) mg/dL Pituitary panel 06/14/18 06/15/18 Range/Units 19:28 07:14 Sodium 140 (137-145) mmol/L Potassium 4.9 5.3 H (3.5-5.1) mmol/L Chloride 111 H (98-107) mmol/L Carbon Dioxide 24 (22-30) mmol/L BUN 26 H (7-17) mg/dL Creatinine 1.01 (0.52-1.04) mg/dL Glucose 106 H (74-99) mg/dL Calcium 9.2 (8.4-10.2) mg/dL Adrenal panel 06/14/18 06/15/18 Range/Units 19:28 07:14 Sodium 140 (137-145) mmol/L Potassium 4.9 5.3 H (3.5-5.1) mmol/L Chloride 111 H (98-107) mmol/L Carbon Dioxide 24 (22-30) mmol/L BUN 26 H (7-17) mg/dL Creatinine 1.01 (0.52-1.04) mg/dL Glucose 106 H (74-99) mg/dL Calcium 9.2 (8.4-10.2) mg/dL - Imaging CT scan - abdomen: report reviewed, image reviewed CT scan - chest: report reviewed, image reviewed Assessment and Plan (1) Paraesophageal hiatal hernia Current Visit: Yes Status: Acute Code(s): K44.9 - DIAPHRAGMATIC HERNIA WITHOUT OBSTRUCTION OR GANGRENE SNOMED Code(s): 2973789 (2) Hypertension Current Visit: Yes Status: Acute Code(s): I10 - ESSENTIAL (PRIMARY) HYPERTENSION SNOMED Code(s): 82679457 (3) Hyperlipidemia Current Visit: Yes Status: Acute Code(s): E78.5 - HYPERLIPIDEMIA, UNSPECIFIED SNOMED Code(s): 55065286 (4) Coronary artery disease Current Visit: Yes Status: Acute Code(s): I25.10 - ATHSCL HEART DISEASE OF [place] CORONARY ARTERY W/O ANG PCTRS SNOMED Code(s): 22841847 (5) Acute kidney injury Current Visit: Yes Status: Acute Code(s): N17.9 - ACUTE KIDNEY FAILURE, UNSPECIFIED SNOMED Code(s): 58182194 (6) Hyperkalemia Current Visit: Yes Status: Acute Code(s): E87.5 - HYPERKALEMIA SNOMED Code (s): 28845737 (7) Depression Current Visit: Yes Status: Acute Code(s): F32.9 - MAJOR DEPRESSIVE DISORDER , SINGLE EPISODE, UNSPECIFIED SNOMED Code(s): 70485544 Plan: The patient was seen and examined. Chart and diagnostics were reviewed. Her case was discussed with Dr. Sarkis Starks from cardiothoracic surgery. The Patient was seen and examined by Dr. Martinez from nephrology, recommendations noted. It was discussed with the patient and her daughter that the patient will follow-up with cardiothoracic surgery on an outpatient basis. General surgery and medical recommendations per Dr. Ruano. Thank you Dr. Ruano for this consult and we look forward to working with you in the care of your patient. Time with Patient: Greater than 30
[2018-06-15 14:09] VITALS: BP 139/78; PULSE 76; TEMP 98.1
--- NOTE | 2018-06-15 16:53 | P.DS ---
Providers Date of admission: 06/14/18 Expected date of discharge: 06/15/18 Attending physician: Sole Ruano Consults: 06/14/18 07:08 Consult Physician Routine Consulting Provider: [facility] Consult Reason/Comments: [facility] Do you want consulting provider notified?: Yes 06/14/18 12:24 Consult Physician Routine Consulting Provider: Jeanne Lord Consult Reason/Comments: Acute renal insufficiency, hyperkalemia Do you want consulting provider notified?: Yes 06/14/18 18:32 Consult Physician Routine Consulting Provider: Philip Rodriguez Consult Reason/Comments: Large paraesophageal hiatal hernia Do you want consulting provider notified?: Yes, Notify in am Primary care physician: Miranda Turpin - Discharge Diagnosis(es) (1) Hypertensive cardiomyopathy Current Visit: Yes Status: Acute (2) Acute kidney injury Current Visit: Yes Status: Acute (3) Coronary artery disease Current Visit: Yes Status: Acute (4) Hyperkalemia Current Visit: Yes Status: Acute (5) Hyperlipidemia Current Visit: Yes Status: Acute (6) Paraesophageal hiatal hernia Current Visit: Yes Status: Acute (7) Morbid obesity due to excess calories Current Visit: Yes Status: Acute (8) COPD (chronic obstructive pulmonary disease) Current Visit: Yes Status: Acute (9) Acute renal tubular necrosis Current Visit: Yes Status: Acute (10) Stage 3 acute kidney injury Current Visit: Yes Status: Acute (11) Stage 3 chronic kidney disease due to benign hypertension Current Visit: Yes Status: Acute Hospital Course: CHIEF COMPLAINT: Large paraesophageal hiatal hernia COURSE: The patient is a 67-year-old female who was initially admitted to undergo a robotic-assisted repair of recurrent large paraesophageal hiatal hernia that incorporated over 60% of her stomach into her chest. She had lab work done in pre-op which came back with new elevated potassium including new renal insufficiency. She had hyperkalemia. She had stage III renal insufficiency secondary to acute tubular necrosis. As a result, her surgery was canceled. Additionally ultrasound of the kidneys were obtained consistent with medical disease renal disorder. She was admitted for treatment of her acute renal insufficiency. Additional imaging including CT of the chest abdomen and pelvis was obtained also identifying the extent of her hiatal hernia including esophagram to evaluate esophageal dysmotility. Findings of involvement of pancreas into the chest prompted consultation to thoracic surgery for a thoracic approach for future hiatal hernia repair. Additionally nephrology consultation was obtained for management of her hyperkalemia including acute tubular necrosis. Her medications were adjusted where her lisinopril was discontinued. IV fluid hydration was instituted. She was switched to amlodipine per discussion with nephrology. Outpatient follow up with the cardiothoracic surgeon was advised given the extremely large size of her recurrent hiatal hernia. Hiatal hernia diet was reviewed in detail. Medical reconciliation was performed of her medications. She was tolerating dinner prior to discharge. PHYSICAL EXAM: Vital Signs Temp 98.1 F 06/15/18 14:08 Pulse 76 06/15/18 14:08 Resp 16 06/15/18 14:08 BP 139/78 06/15/18 14:08 Pulse Ox 98 06/15/18 14:08 Intake & Output 06/14/18 06/15/18 06/15/18 18:59 06:59 18:59 Intake Total 700 840 560 Balance 700 840 560 Weight 86.183 kg Intake: IV 700 560 Sodium Chloride 0.9% 1, 560 000 ml @ 70 mls/hr IV . [id number] [facility] Rx#:[id number] Intake, IV Titration 840 Amount Sodium Chloride 0.9% 1, 840 000 ml @ 70 mls/hr IV . [id number] [facility] Rx#:[id number] Other: Voiding Method Toilet Toilet # Voids 2 1 2 # Bowel Movements 1 VITAL SIGNS: Currently stable. GENERAL: Well-developed in no acute distress. HEENT: No sclera icterus. Extraocular movements grossly intact. Moist buccal mucosa. Head is atraumatic, normocephalic. Hears conversational speech. No nasal drainage. NECK: Supple without lymphadenopathy. CHEST: Non-labored respirations and equal bilateral excursions. CARDIOVASCULAR: Regular rate with regular rhythm. ABDOMEN: Soft. Non-tender. Nondistended. MUSCULOSKELETAL: No clubbing, cyanosis or edema. NEUROLOGIC: No focal or lateralizing signs. Cranial nerves II through XII grossly intact. PSYCH: Alert and oriented to person, place and time. SKIN: Well perfused. Good skin turgor. LABS: Reviewed Laboratory Last Values WBC 9.8 k/uL (3.8-10.6) 06/14/18 10:57 RBC 4.76 m/uL (3.80-5.40) 06/14/18 10:57 Hgb 14.7 gm/dL (11.4-16.0) 06/14/18 10:57 Hct 45.3 % (34.0-46.0) 06/14/18 10:57 MCV 95.1 fL (80.0-100.0) 06/14/18 10:57 MCH 31.0 pg (25.0-35.0) 06/14/18 10:57 MCHC 32.6 g/dL (31.0-37.0) 06/14/18 10:57 RDW 12.8 % (11.5-15.5) 06/14/18 10:57 Plt Count 415 k/uL (150-450) 06/14/18 10:57 Neutrophils % 65 % 06/14/18 10:57 Lymphocytes % 25 % 06/14/18 10:57 Monocytes % 7 % 06/14/18 10:57 Eosinophils % 1 % 06/14/18 10:57 Basophils % 0 % 06/14/18 10:57 Neutrophils # 6.3 k/uL (1.3-7.7) 06/14/18 10:57 Lymphocytes # 2.4 k/uL (1.0-4.8) 06/14/18 10:57 Monocytes # 0.7 k/uL (0-1.0) 06/14/18 10:57 Eosinophils # 0.1 k/uL (0-0.7) 06/14/18 10:57 Basophils # 0.0 k/uL (0-0.2) 06/14/18 10:57 PT 10.2 sec (9.0-12.0) 06/14/18 10:57 INR 1.0 (<1.2) 06/14/18 10:57 Sodium 140 mmol/L (137-145) 06/15/18 07:14 Potassium 5.3 mmol/L (3.5-5.1) H 06/15/18 13:54 Chloride 111 mmol/L (98-107) H 06/15/18 07:14 Carbon Dioxide 24 mmol/L (22-30) 06/15/18 07:14 Anion Gap 5 mmol/L 06/15/18 07:14 BUN 26 mg/dL (7-17) H 06/15/18 07:14 Creatinine 1.01 mg/dL (0.52-1.04) 06/15/18 07:14 Est GFR (CKD-EPI)AfAm 66 (>60 ml/min/1.73 sqM) 06/15/18 07:14 Est GFR (CKD-EPI)NonAf 57 (>60 ml/min/1.73 sqM) 06/15/18 07:14 Glucose 106 mg/dL (74-99) H 06/15/18 07:14 Calcium 9.2 mg/dL (8.4-10.2) 06/15/18 07:14 Phosphorus 3.3 mg/dL (2.5-4.5) 06/15/18 07:14 Magnesium 2.1 mg/dL (1.6-2.3) 06/15/18 07:14 Total Bilirubin 0.7 mg/dL (0.2-1.3) 06/14/18 10:57 AST 30 U/L (14-36) 06/14/18 10:57 ALT 27 U/L (9-52) 06/14/18 10:57 Alkaline Phosphatase 109 U/L (38-126) 06/14/18 10:57 Total Protein 7.8 g/dL (6.3-8.2) 06/14/18 10:57 Albumin 4.3 g/dL (3.5-5.0) 06/14/18 10:57 Urine Color Light Yellow 06/15/18 13:50 Urine Appearance Clear (Clear) 06/15/18 13:50 Urine pH 5.5 (5.0-8.0) 06/15/18 13:50 Ur Specific [place] 1.014 (1.001-1.035) 06/15/18 13:50 Urine Protein Negative (Negative) 06/15/18 13:50 Urine Glucose (UA) 3+ (Negative) H 06/15/18 13:50 Urine Ketones Negative (Negative) 06/15/18 13:50 Urine Blood Negative (Negative) 06/15/18 13:50 Urine Nitrite Negative (Negative) 06/15/18 13:50 Urine Bilirubin Negative (Negative) 06/15/18 13:50 Urine Urobilinogen <2.0 mg/dL (<2.0) 06/15/18 13:50 Ur Leukocyte Esterase Small (Negative) H 06/15/18 13:50 Urine RBC 1 /hpf (0-5) 06/15/18 13:50 Urine WBC 1 /hpf (0-5) 06/15/18 13:50 Ur Squamous Epith Cells 1 /hpf (0-4) 06/15/18 13:50 Blood Type A Positive 06/14/18 10:57 Blood Type Confirm A Positive 06/14/18 11:03 Blood Type Recheck CABO Indicated 06/14/18 10:57 Antibody Screen NEGATIVE 06/14/18 10:57 Spec Expiration Date 06/17/2018235606/14/18 10:57 ASSESSMENT: 1. Large paraesophageal hiatal hernia 2. New acute tubular necrosis with stage III kidney disease 3. Persistent hyperkalemia PLAN: 1. Patient medically stable per discussion with multiple consultants for discharge Pertinent Studies: Esophagram demonstrates large paraesophageal hiatal hernia CT chest abdomen and pelvis demonstrates pancreas into chest including no kidney stones. Chest x-ray demonstrates no acute pulmonary disorder Ultrasound of kidneys demonstrate renal disease chronic Procedures: Surgery canceled due to hyperkalemia and new insufficiency Patient Condition at Discharge: Stable Plan - Discharge Summary Discharge Rx Participant: No New Discharge Prescriptions: New amLODIPine [Norvasc] 2.5 mg PO DAILY #30 tablet Continue Metoprolol Tartrate 25 mg PO BID Aspirin [Adult Low Dose Aspirin EC] 81 mg PO DAILY Atorvastatin [Lipitor] 40 mg PO DAILY Discontinued Lisinopril [Zestril] 5 mg PO DAILY Discharge Medication List Metoprolol Tartrate 25 mg PO BID 02/26/17 [History] Aspirin [Adult Low Dose Aspirin EC] 81 mg PO DAILY 02/18/18 [History] Atorvastatin [Lipitor] 40 mg PO DAILY 06/06/18 [History] amLODIPine [Norvasc] 2.5 mg PO DAILY #30 tablet 06/15/18 [Rx] Follow up Appointment(s)/Referral(s): Philip Rodriguez MD [STAFF PHYSICIAN] - 2 Weeks (Please call to confirm time) Sole Ruano MD [STAFF PHYSICIAN] - 06/25/18 (Please call to confirm time for [facility]) Heron Martinez DO [STAFF PHYSICIAN] - 1 Week (Please call to confirm time) Patient Instructions/Handouts: Amlodipine (By mouth), Hiatal Hernia (IP), Hyperkalemia (DC) Activity/Diet/Wound Care/Special Instructions: Please follow hiatal hernia diet. New prescription at your local pharmacy. Discharge Disposition: HOME SELF-CARE
== END 2018-06-15 16:57 | disposition home or self-care (01) ==
LOC: OR 10:01 → EDSTATUS 11:05 → 4SSUR 12:38 → OR 06-15 16:57
PROVIDERS: ATTEND Surgery Plastic and Reconstructive Surgery
DX: I13.10 Hypertensive heart and chronic kidney disease without heart failure, with stage 1 through stage 4 chronic kidney disease, or unspecified chronic kidney disease (principal); N18.3 Chronic kidney disease, stage 3 (moderate); I43 Cardiomyopathy in diseases classified elsewhere; N17.0 Acute kidney failure with tubular necrosis; E87.5 Hyperkalemia; K44.9 Diaphragmatic hernia without obstruction or gangrene; K21.9 Gastro-esophageal reflux disease without esophagitis; I25.10 Atherosclerotic heart disease of native coronary artery without angina pectoris; E78.5 Hyperlipidemia, unspecified; E66.01 Morbid (severe) obesity due to excess calories; Z68.37 Body mass index [BMI] 37.0-37.9, adult; J44.9 Chronic obstructive pulmonary disease, unspecified; H26.9 Unspecified cataract; Z53.8 Procedure and treatment not carried out for other reasons; Z79.82 Long term (current) use of aspirin; Z79.899 Other long term (current) drug therapy; Z90.710 Acquired absence of both cervix and uterus; Z87.891 Personal history of nicotine dependence; F32.9 Major depressive disorder, single episode, unspecified
CPT/HCPCS: 71045; 71250; 74150; 74210; 76770; 80048; 80053; 81001; 83735; 84100; 84132; 85025; 85610; 86850; 86900; 86901

== ENCOUNTER → 2019-01-16 | Outpatient (CLI) | payer MEDICARE ==
[2019-01-16 16:07] LABS: Basophils % (A) 0 %; Eosinophils # (A) 0.2 k/uL (0-0.7); Eosinophils % (A) 1 %; HCT 43.2 % (34.0-46.0); HGB 14.4 gm/dL (11.4-16.0); Lymphocytes % (A) 22 %; MCH 31.7 pg (25.0-35.0); MCHC 33.4 g/dL (31.0-37.0); Mean Platelet Volume 7.7; Monocytes # (A) 0.8 k/uL (0-1.0); Monocytes % (A) 6 %; Neutrophils # (A) 9.1 k/uL (1.3-7.7); Neutrophils % (A) 68 %; Platelet Count 372 k/uL (150-450); RBC 4.55 m/uL (3.80-5.40); RDW 13.2 % (11.5-15.5); WBC 13.4 k/uL (3.8-10.6)
[2019-01-16 16:30] LABS: Partial Thromboplastin Time 23.9 sec (22.0-30.0); Prothrombin Time 10.5 sec (9.0-12.0)
[2019-01-17 01:28] LABS: African American GFR (CKD) 44.3 (60.0-200.0); Magnesium 2.1 mg/dL (1.5-2.4); Potassium 4.8 mmol/L (3.5-5.5)
== END | disposition home or self-care (01) ==
LOC: LABWHC1 15:10
PROVIDERS: ATTEND Thoracic Surgery (Cardiothoracic Vascular Surgery)
DX: Z01.812 Encounter for preprocedural laboratory examination (principal); K44.9 Diaphragmatic hernia without obstruction or gangrene
CPT/HCPCS: 36415; 80051; 82565; 82947; 83735; 84520; 85025; 85610; 85730

== ENCOUNTER 2019-01-23 06:14 | Inpatient (IN) | payer MEDICARE ==
[2019-01-17 09:27] VITALS: BMI 37.0
[~2019-01-23 06:14] MED LIST changes: -HEPARIN SODIUM,PORCINE 5,000 UNIT/ML 1 ML VIAL SQ ONE; +HYDROmorphone 0.5 MG/0.5 ML SYRINGE IVP PRN; +NITROGLYCERIN-D5W PMX 50 MG in DEXTROSE/WATER 1 250ML.BAG IV SCH; -ONDANSETRON 4 MG/2 ML VIAL IVP ONE; +ONDANSETRON 4 MG/2 ML VIAL IVP PRN; -ceFAZolin IN SWFI 2 GM/20 ML SYRINGE IVP ONE; -fentaNYL (PF) 50 MCG/ML 2 ML AMP IV PRN
[2019-01-23] MEDS: LACTATED RINGERS 1,000 ML IV SCH ×2 (06:49→07:36)
[2019-01-23] MEDS: ONDANSETRON 4 MG/2 ML VIAL IVP ONE ×2 (06:54→12:58)
[2019-01-23] MEDS: SCOPOLAMINE 1.5MG/72HR PATCH TRANSDERM ONE ×2 (06:59→12:58)
[2019-01-23] MEDS ORDERED: PROPOFOL 10 MG/ML 20 ML VIAL IV ONE (07:08)
[2019-01-23] MEDS ORDERED: MIDAZOLAM 2 MG/2 ML VIAL ONE (07:08)
[2019-01-23] MEDS ORDERED: fentaNYL (PF) 50 MCG/ML 2 ML AMP ONE (07:08)
[2019-01-23] MEDS ORDERED: ePHEDrine SULFATE/0.9% NACL/PF 50 MG/5 ML SYRINGE IV ONE (07:08)
[2019-01-23] MEDS ORDERED: SUCCINYLCHOLINE CHLORIDE 100 MG/5 ML SYR IV ONE (07:08)
[2019-01-23] MEDS ORDERED: GLYCOPYRROLATE 0.2 MG/ML 2 ML VIAL ONE (07:08)
[2019-01-23] MEDS ORDERED: LIDOCAINE 1% INJ 10MG/ML (20 ML MDV) ONE (07:08)
[2019-01-23] MEDS ORDERED: ROCURONIUM BROMIDE 10 MG/ML 10 ML VIAL IV ONE (07:08)
[2019-01-23] MEDS ORDERED: NEOSTIGMINE 1 MG/ML 10 ML VIAL ONE (07:08)
[2019-01-23] MEDS ORDERED: MIDAZOLAM (PF) 2 MG/2 ML VIAL IVP ONE (07:25)
[2019-01-23] MEDS ORDERED: NALOXONE 0.4 MG/ML 1 ML VIAL IV PRN (08:23)
[2019-01-23] MEDS ORDERED: SODIUM CHLORIDE 0.9% 50 ML with ceFAZolin 2,000 MG IV ONE ×2 (08:34)
[2019-01-23] MEDS: ROPIVACAINE 400 MG, HYDROMORPHONE (PF) 5 MG in SODIUM CHLORIDE 0.9% 170 ML EPIDURAL PRN (10:52)
[2019-01-23] MEDS: HYDROmorphone 1 MG/ML 1 ML SYRINGE IVP ONE ×2 (11:00→11:05)
--- NOTE | 2019-01-23 11:02 | P.OP ---
Date of Procedure: 01/23/19 Preoperative Diagnosis: Recurrent paraesophageal hernia Postoperative Diagnosis: Same Procedure(s) Performed: Left thoracotomy, repair of paraesophageal hernia, Ernie-Norma procedure. Implants: None Anesthesia: ELIAS Surgeon: Philip Rodriguez Medical Sales #1: Fernando Monte Estimated Blood Loss (ml): 200 Pathology: other (Left paraesophageal lymph node) Condition: stable Disposition: PACU Indications for Procedure: 68-year-old female presents with large paraesophageal hernia. She had previously undergone a laparoscopic repair of the same down at [facility]. This was a complicated admission and apparently was a failed repair. Patient was recommended to undergo elective we repair of her paraesophageal hernia. Thoracotomy approach was preferred for the recurrent procedure. Operative Findings: There were dense adhesions in the region of the paraesophageal hernia. These were relatively mild to the long however very dense to the diaphragm particularly anteriorly. The esophagus was shortened and a Ernie lengthening procedure was required in order to reduce the stomach below the level of the diaphragm without tension. An excellent repair was obtained. Description of Procedure: Patient was brought to the operating room, placed supine on the operating table, anesthetized and intubated with a double-lumen endotracheal tube. Tube was positioned with fiberoptic bronchoscopy and secured. Patient was turned in the right lateral decubitus position and the left chest sterilely prepped and draped. Left posterior thoracotomy incision was performed. The latissimus muscle was divided and the serratus muscle was spared and retracted anteriorly. The chest was entered in the sixth interspace. The intercostal muscles were undercut anteriorly and posteriorly to allow good rib spreading. The inferior pulmonary ligament was taken down and the adhesions of the lung to the stomach were taken down. The esophagus was encircled and a half inch Rashaad drain was placed around the distal esophagus. Dissection was carried onto the stomach and the stomach was mobilized from its adhesions to the mediastinum as well as to the edge of the diaphragm. The hernia sac was entered posteriorly and the edge of the diaphragm was freed posteriorly and then we worked diligently to free the edge of the diaphragm anteriorly and laterally where it was much more densely adherent to the stomach. Once we completely freed the edge of the diaphragm, we tried to reduce the stomach into the abdominal cavity. It was evident that the esophagus was shortened and would not stretch to allow the GE junction to become below the level of the diaphragm without excessive tension. A small inadvertent gastrotomy had been made in the greater curvature the stomach and this of been closed with a TA stapler. We now performed a Ernie esophageal lengthening procedure after assuring the NG tube was in appropriate position. A 60 Endo TAN thick reinforced staple line was used for the Ernie lengthening procedure. Once we had completed this there was evident that the resultant lengthened esophagus would reduce the remaining stomach below the diaphragm. The resultant flap of stomach from the greater curvature was used to perform a partial Norma wrap with 3-0 silk suture ligatures. We now closed the edges of the diaphragm posteriorly using interrupted 0 Ethibond sutures. Generous bites of diaphragm were easily obtained and the closure proceeded without any tension either on the diaphragm or on the esophagus. Once we had the esophageal hiatus close to where it would easily except one finger and the tip of 2 fingers but not easily except 2 fingers we felt we had a good appropriately closed repair. This closed easily around the jordana-esophagus created by the Ernie gastroplasty. Circumferential 3- 0 silk sutures were used to tack the edge of the diaphragm to the Ernie gastroplasty tube. Chest was irrigated with warm water. The 30s 2-Cymro chest tube was placed through separate stab incision and positioned posterior apically on the left. There was a small rent in the right pleura and a 28-Cymro chest tube was placed posterior to this and positioned in the right pleural space. Cryoablation of the intercostal nerves posteriorly at levels 4, 5, 6, 7 and 8 was performed with the AtriCure Endo ice system. The lung was inflated under direct vision and the ribs reapproximated with #1 Vicryl sutures. Muscle layers were closed with 0 Vicryl suture. Subcutaneous tissue was closed with 2-0 Vicryl suture. Skin was closed with a running 3-0 Vicryl subcuticular stitch. Dry sterile dressings were applied the patient was turned supine and transferred to recovery in stable condition.
[2019-01-23] MEDS ORDERED: IPRATROPIUM-ALBUTEROL 3 ML NEB IH PRN (11:10)
[2019-01-23] MEDS ORDERED: ONDANSETRON 4 MG/2 ML VIAL IVP PRN (11:10)
[2019-01-23] MEDS ORDERED: BISACODYL 10 MG SUPP RECTAL PRN (11:10)
[2019-01-23] MEDS ORDERED: ACETAMINOPHEN IV (For NPO) 1,000 MG/100 ML VIAL IVPB ONE (11:12)
[2019-01-23] MEDS ORDERED: LACTATED RINGERS 1,000 ML IV ONE (11:46)
--- NOTE | 2019-01-23 11:48 | XR ---
EXAMINATION TYPE: XR chest 1V DATE OF EXAM: 01/23/2019 COMPARISON: 06/14/2018 HISTORY: Postoperative exam after paraesophageal hernia repair. TECHNIQUE: Single frontal view of the chest is obtained. FINDINGS: Retrocardiac density remains as well as presumably a mediastinal drain, enteric tube, and left thoracostomy tube. Platelike left basilar atelectasis is seen in addition to a new right trace p leural effusion and right basilar airspace disease. New trace left pleural effusion is also present. No postprocedural pneumothorax is seen. Enteric tube appears to be slightly cephalad in placement how ever the fenestrated portion is not readily seen. This could be advanced 5 cm for optimal placement. Presumably the mediastinal drain projects over the right mediastinal border. Left thoracostomy tube t erminates near the medial left lung apex. IMPRESSION: 1. Enteric tube is slightly cephalad in placement and could be advanced approximately 5 cm for optima l placement. 2. Trace bilateral pleural effusions and new bibasilar airspace disease are seen that likely relate t o postprocedural atelectasis.
[2019-01-23] MEDS: IPRATROPIUM-ALBUTEROL 3 ML NEB IH SCH ×3 (12:30→19:12)
[2019-01-23 12:32] LABS: MCHC 32.5 g/dL (31.0-37.0); MCV 95.6 fL (80.0-100.0); Mean Platelet Volume 7.9; Platelet Count 289 k/uL (150-450); RBC 3.87 m/uL (3.80-5.40); RDW 13.4 % (11.5-15.5); WBC 27.1 k/uL (3.8-10.6)
[2019-01-23 12:49] LABS: Glucose,Whole Blood 124 mg/dL (75-99)
[2019-01-23] MEDS: KETOROLAC 30 MG/ML 1 ML VIAL IVP SCH ×3 (12:58→18:30)
[2019-01-23] MEDS: ACETAMINOPHEN IV (For NPO) 1,000 MG in EMPTY BAG 1 BAG IVPB SCH ×2 (13:13→21:43)
--- NOTE | 2019-01-23 13:58 | P.CNPUL ---
History of Present Illness Consult date: 01/23/19 Requesting physician: Philip Rodriguez Reason for consult: other (Pulmonary and critical care management) Chief complaint: Recurrent paraesophageal hernia History of present illness: This is a very pleasant 68-year-old female patient who follows with Dr. Turpin as her primary care physician. She has a history of hypertension, hyperlipidemia, recurrent paraesophageal hernia. Her previous surgery was done in 2004 at [facility]. Recent CAT scan of the abdomen and chest demonstrates a large paraesophageal hernia with much of the stomach and pancreas present in the chest cavity. She was admitted today electively for a left thoracotomy, repair of the paraesophageal hernia, Ernie Norma procedure performed by Dr. Rodriguez this morning. She is seen today post recovery in the intensive care unit. He did have some issues with hypotension while in recovery room following a bolus for pain control and the epidural and a milligram of Dilaudid. She required 500 mL of fluid resuscitation. She's been initiated on D5.45 with 20 KCl at 100 ML's per hour. Urine output is marginal. Not requiring pressors at this point. Current pressure 95/46, temperature is 96.3 axillary, bradycardic in the 50s. She is maintaining O2 saturations in the 90s on 4 L/m per nasal cannula. Postop chest x-ray reveals trace bilateral pleural effusions and new bibasilar airspace disease likely related to post procedural atelectasis. 2 chest tubes remain in place when anteriorly one posteriorly. E ach attached to Pleur-evacs. No significant drainage thus far. White count 27.1. Hemoglobin 12.0. She has been initiated on DuoNeb inhalations,. Ropivacaine/hydromorphone pain pump in place. She is currently comfortable in no acute distress. Review of Systems REVIEW OF SYSTEMS: CONSTITUTIONAL: Denies any recent significant weight loss or weight gain. EYES: Denies change in vision. EARS, NOSE, MOUTH, THROAT: Denies headaches, denies sore throat. CARDIOVASCULAR: Denies chest pain, palpitations or syncopal episodes. RESPIRATORY: Positive for shortness of breath, cough, congestion no hemoptysis. GASTROINTESTINAL: Denies change in appetite, denies abdominal pain GENITOURINARY: Denies hematuria, denies infections. MUSKULOSKELETAL: Denies pain, denies swelling. INTEGUMENTARY: Denies rash, denies eczema. NEUROLOGICAL: Denies recent memory loss, no recent seizure activity. PSYCHIATRIC: Denies anxiety, denies depression. HEMATOLOGIC/LYMPHATIC: Denies anemia, denies enlarged lymph nodes. Past Medical History Past Medical History: Coronary Artery Disease (CAD), Eye Disorder, GERD/Reflux, Hyperlipidemia, Hypertension, Renal Disease Additional Past Medical History / Comment(s): states current hiatal hernia,SOB with activity History of Any Multi-Drug Resistant Organisms: None Reported Past Surgical History: Appendectomy, Heart Catheterization, Hernia Repair, Hysterectomy Additional Past Surgical History / Comment(s): fibroid tumor removal, hiatal hernia, heart catheterization in January 2018 demonstrated a 50% stenosis to her PDA coronary artery, a 50% stenosis to her midportion of her circumflex coronary artery, and a 50% stenosis to her mid left anterior descending coronary artery. Past Anesthesia/Blood Transfusion Reactions: No Reported Reaction Additional Past Anesthesia/Blood Transfusion Reaction / Comment(s): no hx blood transfusion Smoking Status: Former smoker - Past Family History Mother Family Medical History: Pulmonary Embolus Additional Family Medical History / Comment(s): Past away from a pulmonary embolus. Father History Unknown: Yes Family Medical History: No Reported History Medications and Allergies Home Medications Medication Instructions Recorded Confirmed Type Metoprolol Tartrate 50 mg PO BID 02/26/17 01/23/19 History Aspirin [Adult Low Dose Aspirin EC] 81 mg PO DAILY 02/18/18 01/23/19 History Atorvastatin [Lipitor] 40 mg PO DAILY 06/06/18 01/23/19 History amLODIPine [Norvasc] 2.5 mg PO DAILY #30 tablet 06/15/18 01/23/19 Rx Acetaminophen Tab [Tylenol Tab] 500 - 1,000 mg PO Q6H PRN 01/17/19 01/23/19 History Citalopram Hydrobromide [CeleXA] 20 mg PO QAM 01/17/19 01/23/19 History Psyllium Husk 100% [Metamucil 6 gm PO DAILY 01/17/19 01/23/19 History Packet] Allergies Allergy/AdvReac Type Severity Reaction Status Date / Time morphine AdvReac Nausea & Verified 01/23/19 11:35 Vomiting Physical Exam Vitals: Vital Signs Temp Pulse Pulse Pulse Resp BP BP 01/23/19 13:00 49 L 12 95/46 01/23/19 12:50 96.3 F L 49 L 14 95/46 01/23/19 12:15 51 L 16 93/54 01/23/19 12:02 49 L 16 73/43 01/23/19 11:45 48 L 16 74/41 01/23/19 11:30 49 L 16 81/42 01/23/19 11:15 58 L 16 82/43 01/23/19 11:00 68 18 146/83 01/23/19 10:52 97 F L 68 18 113/61 01/23/19 07:34 54 L 18 146/67 01/23/19 07:11 57 L 18 164/77 01/23/19 06:38 96.5 F L 62 18 173/75 Pulse Ox 01/23/19 13:00 96 01/23/19 12:50 94 L 01/23/19 12:15 100 01/23/19 12:02 100 01/23/19 11:45 100 01/23/19 11:30 100 01/23/19 11:15 100 01/23/19 11:00 96 01/23/19 10:52 96 01/23/19 07:34 100 01/23/19 07:11 98 01/23/19 06:38 97 Intake and Output 01/22/19 01/23/19 01/23/19 22:59 06:59 14:59 Intake Total 1100 Output Total 270 Balance 830 Intake: IV 1000 Intake, IV Titration 100 Amount Lactated Ringers 1,000 ml 100 @ 0 mls/hr IV .[facility] Rx#:[id number] Output: Urine 120 Estimated Blood Loss 150 ABP, PAP, CO, CI - Last 8 Hours Arterial Blood Pressure 87/39 GENERAL EXAM: Pleasant 68-year-old female patient. Currently comfortable in no apparent distress. On 4 L nasal cannula. HEAD: Normocephalic. EYES: Sluggish reaction of pupils, equal size. NOSE: Nasogastric tube in place. Clear with pink turbinates. THROAT: No erythema or exudates. NECK: No masses, no JVD. CHEST: 2 left-sided chest tubes in place. Dressing dry and intact. LUNGS: Equal air entry with scattered rhonchi, crackles in the left base. CVS: S1 and S2 normal with no audible murmur, regular rhythm, bradycardic. ABDOMEN: No hepatosplenomegaly, normal bowel sounds, no guarding or rigidity. SPINE: No scoliosis or deformity SKIN: No rashes CENTRAL NERVOUS SYSTEM: No focal deficits, tone is normal in all 4 extremities. EXTREMITIES: There is no peripheral edema. No clubbing, no cyanosis. Peripheral pulses are intact. Results - Laboratory Findings CBC and BMP: 01/23/19 12:20 Abnormal lab findings: Abnormal Labs 01/23/19 01/23/19 12:20 12:38 WBC 27.1 H POC Glucose (mg/dL) 124 H - Diagnostic Findings Chest x-ray: image reviewed Assessment and Plan Assessment: Impression: #1 Recurrent large paraesophageal hernia status post left thoracotomy, repair of paraesophageal hernia, Ernie-Norma procedure. Postoperative day #0. #2 Large paraesophageal hernia initially repaired in [facility] in 2004. #3 Acute hypoxic respiratory failure with basilar atelectasis secondary to above, expected outcome of surgery. [address] to the left. #4 Hypertension, history of. #5 Hyperlipidemia. Plan: The patient was seen and evaluated by Dr. Lowry. Chest x-ray and labs reviewed. She will need increased encouragement regarding the use the incentive spirometer and cough and deep breathing exercises. Continue bronchodilators. Titrate down the FiO2 as tolerated. Adequate pain control without excessive sed ation. Continue monitoring urine output. Monitor chest tube output. We'll continue to monitor her closely here in the intensive care unit and make further recommendations based on her clinical status. I, the cosigning physician, performed a history & physical examination of the patient. Lungs sounds crackles in the left lung base. Maintaining good O2 saturations in the 90s on 4 L/m per nasal cannula. I discussed the assessment and plan of care with my nurse practitioner, Marci Shabazz. I attest to the above consultation as dictated by her. Time with Patient: Greater than 30
[2019-01-23] MEDS ORDERED: ALBUMIN HUMAN 5% 250 ML in EMPTY BAG 1 BAG IVPB STA ×2 (14:20→17:27)
[2019-01-23] MEDS: D5-0.45% NACL WITH KCL 20MEQ/L 1,000 ML IV SCH ×2 (14:30→23:01)
[2019-01-23] MEDS: HEPARIN SODIUM,PORCINE 5,000 UNIT/ML 1 ML VIAL SQ SCH (15:50)
[2019-01-23] MEDS: ceFAZolin IN SWFI 2 GM/20 ML SYRINGE IVP SCH (15:55)
[2019-01-23] MEDS: METOPROLOL TARTRATE 5 MG/5 ML VIAL IVP SCH (17:39)
--- NOTE | 2019-01-23 23:36 | P.CONS ---
History of Present Illness - Reason for Consult Consult date: 01/23/19 Medical management of hypertension and other medical problems - Chief Complaint Left thoracotomy, repair of paraesophageal hernia, Ernie-Norma procedure. - History of Present Illness Patient is a 68-year-old male with a known history of nonobstructive coronary artery disease, hypertension, hyperlipidemia, recurrent paraesophageal hernia with previous surgery in 2004 at [facility] was admitted to the hospital for the repair of paraesophageal hernia. Recent CT of the abdomen pelvis and chest showed large paraesophageal hernia with much of the stomach and pancreas present in the chest cavity. Was admitted to hospital for elective surgery. Patient underwent Left thoracotomy, repair of paraesophageal hernia, Ernie-Norma procedure. Postoperatively patient was hypotensive and blood pressure improved with fluid bolus. Currently patient is intubated and sedated. Chest x-ray showed trace bilateral pleural effusions and new bibasilar airspace disease are seen that likely related to post procedural atelectasis. WBC 27.2 Review of Systems Review of systems could not be obtained from the patient. Past Medical History Past Medical History: Coronary Artery Disease (CAD), Eye Disorder, GERD/Reflux, Hyperlipidemia, Hypertension, Renal Disease Additional Past Medical History / Comment(s): states current hiatal hernia,SOB with activity History of Any Multi-Drug Resistant Organisms: None Reported Past Surgical History: Appendectomy, Heart Catheterization, Hernia Repair, Hysterectomy Additional Past Surgical History / Comment(s): fibroid tumor removal, hiatal hernia, heart catheterization in January 2018 demonstrated a 50% stenosis to her PDA coronary artery, a 50% stenosis to her midportion of her circumflex coronary artery, and a 50% stenosis to her mid left anterior descending coronary artery. Past Anesthesia/Blood Transfusion Reactions: No Reported Reaction Additional Past Anesthesia/Blood Transfusion Reaction / Comm: no hx blood transfusion Smoking Status: Former smoker - Past Family History Mother Family Medical History: Pulmonary Embolus Additional Family Medical History / Comment(s): Past away from a pulmonary embolus. Father History Unknown: Yes Family Medical History: No Reported History Medications and Allergies Home Medications Medication Instructions Recorded Confirmed Type Metoprolol Tartrate 50 mg PO BID 02/26/17 01/23/19 History Aspirin [Adult Low Dose Aspirin EC] 81 mg PO DAILY 02/18/18 01/23/19 History Atorvastatin [Lipitor] 40 mg PO DAILY 06/06/18 01/23/19 History amLODIPine [Norvasc] 2.5 mg PO DAILY #30 tablet 06/15/18 01/23/19 Rx Acetaminophen Tab [Tylenol Tab] 500 - 1,000 mg PO Q6H PRN 01/17/19 01/23/19 History Citalopram Hydrobromide [CeleXA] 20 mg PO QAM 01/17/19 01/23/19 History Psyllium Husk 100% [Metamucil 6 gm PO DAILY 01/17/19 01/23/19 History Packet] Allergies Allergy/AdvReac Type Severity Reaction Status Date / Time morphine AdvReac Nausea & Verified 01/23/19 11:35 Vomiting Physical Exam Vitals: Vital Signs Temp Pulse Pulse Pulse Resp BP BP 01/23/19 17:00 58 L 12 115/52 01/23/19 16:30 63 14 112/52 01/23/19 16:00 63 12 101/44 01/23/19 15:30 58 L 12 112/47 01/23/19 15:00 97.6 F 60 14 112/47 01/23/19 14:30 55 L 14 103/46 01/23/19 14:00 60 14 01/23/19 13:40 58 L 12 100/65 01/23/19 13:20 55 L 14 95/46 01/23/19 13:00 49 L 12 95/46 01/23/19 12:50 96.3 F L 49 L 14 95/46 01/23/19 12:15 51 L 16 93/54 01/23/19 12:02 49 L 16 73/43 01/23/19 11:45 48 L 16 74/41 01/23/19 11:30 49 L 16 81/42 01/23/19 11:15 58 L 16 82/43 01/23/19 11:00 68 18 146/83 01/23/19 10:52 97 F L 68 18 113/61 01/23/19 07:34 54 L 18 146/67 01/23/19 07:11 57 L 18 164/77 01/23/19 06:38 96.5 F L 62 18 173/75 Pulse Ox 01/23/19 17:00 96 01/23/19 16:30 94 L 01/23/19 16:00 92 L 01/23/19 15:30 97 01/23/19 15:00 97 01/23/19 14:30 95 01/23/19 14:00 93 L 01/23/19 13:40 95 01/23/19 13:20 95 01/23/19 13:00 96 01/23/19 12:50 94 L 01/23/19 12:15 100 01/23/19 12:02 100 01/23/19 11:45 100 01/23/19 11:30 100 01/23/19 11:15 100 01/23/19 11:00 96 01/23/19 10:52 96 01/23/19 07:34 100 01/23/19 07:11 98 01/23/19 06:38 97 Intake and Output 01/23/19 01/23/19 01/23/19 06:59 14:59 22:59 Intake Total 1450 300 Output Total 620 115 Balance 830 185 Intake: IV 1000 Intake, IV Titration 450 300 Amount Albumin Human 5% 250 ml 250 In Empty Bag 1 bag @ 250 mls/hr IVPB ON[facility] Rx#: [id number] D5-0.45% NaCl with KCl 300 20Meq/l 1,000 ml @ 100 mls/hr IV .Q10[facility] Rx#: [id number] Lactated Ringers 1,000 ml 200 @ 0 mls/hr IV .[facility] Rx#:[id number] Output: Chest Tube Drainage 330 70 Left Anterior Chest Tube 240 25 Left Posterior Chest Tube 90 45 Urine 140 45 Estimated Blood Loss 150 Other: Voiding Method Indwelling Catheter Indwelling Catheter ABP, PAP, CO, CI - Last 8 Hours Arterial Blood Pressure 118/63 Arterial Blood Pressure 92/40 Arterial Blood Pressure 98/43 Arterial Blood Pressure 92/40 Arterial Blood Pressure 94/41 Arterial Blood Pressure 94/43 Arterial Blood Pressure 92/46 Arterial Blood Pressure 87/39 PHYSICAL EXAMINATION: Patient is currently sedated and intubated with mechanical ventilation HEENT: Normocephalic. Neck is supple. Pupils reactive. Nostrils clear. Oral cavity is moist. Ears reveal no drainage. Neck reveals no JVD, carotid bruits, or thyromegaly. CHEST EXAMINATION: Trachea is central. Symmetrical expansion. Lung leach clear to auscultation and percussion. Chest tubes in place. CARDIAC: Normal S1, S2 with no gallops. No murmurs ABDOMEN: Soft. Bowel sounds normal. No organomegaly. No abdominal bruits. Extremities: reveal no edema. No clubbing or cyanosis Neurologically sedated. No rales focal neurological deficits noted Skin: No rash or skin lesions. Psychiatric: Could not be assessed completely Musculoskeletal: No joint swelling or deformity. Results CBC & Chem 7: 01/23/19 12:20 Labs: Abnormal Lab Results - Last 24 Hours (Table) 01/23/19 01/23/19 Range/Units 12:20 12:38 WBC 27.1 H (3.8-10.6) k/uL POC Glucose (mg/dL) 124 H (75-99) mg/dL Assessment and Plan Assessment: Recurrent large paraesophageal hernia. Status post Left thoracotomy, repair of paraesophageal hernia, Ernie-Norma procedure. Acute hypoxic respiratory failure postoperatively expected. History of paraesophageal hernia repair in 2004 at [facility]. Hypotension improved with fluid bolus. Hypertension Hyperlipidemia GERD Previous history of smoking DVT prophylaxis. Plan: Currently on mechanical ventilator. Patient will be continued on IV hydration. DuoNeb's. Chest tube management as per CT surgery. Pulmonary is on board. We will continue the current management. Further recommendations based on the clinical course. Time with Patient: Greater than 30
[2019-01-24] MEDS: KETOROLAC 30 MG/ML 1 ML VIAL IVP SCH ×2 (00:02→06:32)
[2019-01-24] MEDS: HEPARIN SODIUM,PORCINE 5,000 UNIT/ML 1 ML VIAL SQ SCH ×4 (00:03→23:48)
[2019-01-24] MEDS: ACETAMINOPHEN IV (For NPO) 1,000 MG in EMPTY BAG 1 BAG IVPB SCH ×2 (00:03→06:35)
[2019-01-24] MEDS: METOPROLOL TARTRATE 5 MG/5 ML VIAL IVP SCH ×5 (00:04→23:47)
[2019-01-24] MEDS ORDERED: ceFAZolin IN SWFI 2 GM/20 ML SYRINGE IVP SCH (00:15)
[2019-01-24] MEDS: ceFAZolin IN SWFI 2 GM/20 ML SYRINGE IVP SCH (03:40)
[2019-01-24 04:46] LABS: Basophils % (A) 0 %; Eosinophils # (A) 0.1 k/uL (0-0.7); Eosinophils % (A) 1 %; HCT 37.6 % (34.0-46.0); HGB 11.8 gm/dL (11.4-16.0); Lymphocytes # (A) 1.9 k/uL (1.0-4.8); Lymphocytes % (A) 10 %; MCHC 31.3 g/dL (31.0-37.0); Mean Platelet Volume 7.5; Monocytes # (A) 0.9 k/uL (0-1.0); Monocytes % (A) 5 %; Neutrophils % (A) 83 %; Platelet Count 282 k/uL (150-450); RDW 13.1 % (11.5-15.5); WBC 18.1 k/uL (3.8-10.6)
[2019-01-24 05:17] LABS: Potassium 5.4 mmol/L (3.5-5.1)
[2019-01-24] MEDS ORDERED: ACETAMINOPHEN IV (For NPO) 1,000 MG in EMPTY BAG 1 BAG IVPB SCH (06:30)
--- NOTE | 2019-01-24 06:54 | P.PN ---
Progress Note - Text Progress Note Date: 01/24/19 68 yo female s/p paraesophageal hernia repair. POD#1Epidural at 2cc/hr. No pain. No itching, nausea, or signs of motor weakness. Site looks dry and clean. Will keep the same rate unless pain gets worse, we can readjust.
[2019-01-24] MEDS ORDERED: FUROSEMIDE 10 MG/ML 2 ML VIAL IV ONE (07:34)
[2019-01-24] MEDS: DEXTROSE 5%-0.45% NACL 1,000 ML IV SCH ×2 (07:45→18:05)
[2019-01-24] MEDS: IPRATROPIUM-ALBUTEROL 3 ML NEB IH SCH ×4 (08:08→19:33)
--- NOTE | 2019-01-24 08:14 | XR ---
EXAMINATION TYPE: XR chest 1V DATE OF EXAM: 01/24/2019 COMPARISON: Prior chest x-ray 01/23/2019 HISTORY: Chest tubes, post hernia repair TECHNIQUE: Single frontal view of the chest is obtained. FINDINGS: Patient is rotated and there are overlying cardiac leads. Orogastric tube is present overl bria the expected course of the esophagus, side-port is overlying the thoracic region. There is retro cardiac density present. Chest tube is present overlying the left hemithorax and also the mid chest c oursing towards the right hilar region. Right hemidiaphragm is somewhat elevated, lung volumes are lo w. Minimal left apical pneumothorax is present. Minimal right apical pneumothorax also present. Inter stitium is increased, there is increased perihilar density. Heart remains enlarged. Nodular density s uperimposed over the left mid lung. IMPRESSION: Minimal apical pneumothoraces. Cardiomegaly. Probable basilar atelectasis, there may be perihilar edema, correlate to exclude pneumonia. Orogastric tube with side-port over the thoracic reg ion.
--- NOTE | 2019-01-24 09:14 | P.PN ---
Subjective Progress Note Date: 01/24/19 Principal diagnosis: Recurrent paraesophageal hernia This is a very pleasant 68-year-old female patient who follows with Dr. Turpin as her primary care physician. She has a history of hypertension, hyperlipidemia, recurrent paraesophageal hernia. Her previous surgery was done in 2004 at [facility]. Recent CAT scan of the abdomen and chest demonstrates a large paraesophageal hernia with much of the stomach and pancreas present in the chest cavity. She was admitted today electively for a left thoracotomy, repair of the paraesophageal hernia, Ernie Norma procedure performed by Dr. Rodriguez this morning. She is seen today post recovery in the intensive care unit. He did have some issues with hypotension while in recovery room following a bolus for pain control and the epidural and a milligram of Dilaudid. She required 500 mL of fluid resuscitation. She's been initiated on D5.45 with 20 KCl at 100 ML's per hour. Urine output is marginal. Not requiring pressors at this point. Current pressure 95/46, temperature is 96.3 axillary, bradycardic in the 50s. She is maintaining O2 saturations in the 90s on 4 L/m per nasal cannula. Postop chest x-ray reveals trace bilateral pleural effusions and new bibasilar airspace disease likely related to post procedural atelectasis. 2 chest tubes remain in place when anteriorly one posteriorly. Each attached to Pleur-evacs. No significant drainage thus far. White count 27.1. Hemoglobin 12.0. She has been initiated on DuoNeb inhalations,. Ropivacaine/hydromorphone pain pump in place. She is currently comfortable in no acute distress. On 01/24/2019 patient seen in follow-up in intensive care unit. This is postoperative day 1, status post thoracotomy, paraesophageal hernia repair, Ernie-Norma procedure. She is currently on 3 L of oxygen, the pulse ox of 94%, afebrile, hemodynamically stable, IV D5 0.45 at a rate of 100 ML per hour. No other drips, epidural ropivacaine and Dilaudid infusing at a rate of 2 ML per hour. Incentive spirometry effort is suboptimal, about 500 on today's exam. Lung sounds are diminished, with scattered rhonchi, patient does have scattered rhonchi. 2 left sided chest tubes, 300 mL of servicing this output from the posterior chest tube, and 450 from the anterior chest tube. Patient more awake today, she states her pain is well controlled. chest x-ray has been reviewed showing minimal apical pneumothoraces, probable atelectasis, perihilar edema. His labs have been reviewed, showing with blood cell count of 18.1, hemoglobin of 11.8, serum sodium is 136, potassium is 5.4, BUN of 29, creatinine is 1.85. Urine output in the order of 15-35 ML per hour. Patient has been given 500 mL of 5% albumin last night. Objective - Vital Signs Vital signs: Vital Signs Temp 97.5 F L 01/24/19 04:00 Pulse 80 01/24/19 08:10 Resp 18 01/24/19 07:30 BP 133/54 01/24/19 07:30 Pulse Ox 94 L 01/24/19 07:30 Intake & Output 01/23/19 01/24/19 01/24/19 18:59 06:59 18:59 Intake Total 2208.35 1300 200 Output Total 750 468 95 Balance 1458.35 832 105 Weight 89.3 kg Intake: IV 1000 1200 200 ACETAMINOPHEN IV (For NPO 100 ) 1,000 mg In Empty Bag 1 bag @ 400 mls/hr IVPB Q6HR [facility] Rx#:[id number] D5-0.45% NaCl with KCl 1100 200 20Meq/l 1,000 ml @ 100 mls/hr IV .Q10H [facility] Rx#: [id number] Intake, IV Titration 1208.35 100 Amount ACETAMINOPHEN IV (For NPO 100 ) 1,000 mg In Empty Bag 1 bag @ 400 mls/hr IVPB Q6HR [facility] Rx#:[id number] Albumin Human 5% 250 ml 250 In Empty Bag 1 bag @ 250 mls/hr IVPB ONCE STA Rx#: [id number] Albumin Human 5% 250 ml 250 In Empty Bag 1 bag @ 250 mls/hr IVPB ONCE STA Rx#: [id number] D5-0.45% NaCl with KCl 400 100 20Meq/l 1,000 ml @ 100 mls/hr IV .Q10H [facility] Rx#: [id number] Lactated Ringers 1,000 ml 200 @ 0 mls/hr IV .[facility] Rx#:[id number] Ropivacaine 400 mg 8.35 Hydromorphone (Pf) 5 mg In Sodium Chloride 0.9% 170 ml @ Per Protocol EPIDURAL .Q0M PRN Rx#: [id number] Output: Chest Tube Drainage 400 200 60 Left Anterior Chest Tube 265 130 40 Left Posterior Chest Tube 135 70 20 Drainage 60 Left Anterior Chest 60 Left Posterior Chest 0 Urine 200 208 35 Estimated Blood Loss 150 Other: Voiding Method Indwelling Catheter Indwelling Catheter ABP, PAP, CO, CI - Last Documented Arterial Blood Pressure 118/63 - Exam GENERAL EXAM: Alert, pleasant, 68-year-old white female, 3 L of oxygen, with a pulse ox of 94% comfortable in no apparent distress. HEAD: Normocephalic/atraumatic. EYES: Normal reaction of pupils, equal size. Conjunctiva pink, sclera white. NOSE: Clear with pink turbinates. NG-tube is in place, to low intermittent suction THROAT: No erythema or exudates. NECK: No masses, no JVD, no thyroid enlargement, no adenopathy. CHEST: No chest wall deformity. Symmetrical expansion. On anterior left-sided chest tube and one posterior left-sided chest tube, both to waterseal, with serosanguineous drainage in the Pleur-evac. Epidural catheter and posterior chest, with Ropivacaine and Dilaudid infusing at 2 ML per hour LUNGS: Equal air entry with coarse rhonchi, she has a weak congested cough, no productive CVS: Regular rate and rhythm, normal S1 and S2, no gallops, no murmurs, no rubs ABDOMEN: Soft, nontender. No hepatosplenomegaly, normal bowel sounds, no guarding or rigidity. EXTREMITIES: No clubbing, no edema, no cyanosis, 2+ pulses and upper and lower extremities. MUSCULOSKELETAL: Muscle strength and tone normal. SPINE: No scoliosis or deformity SKIN: No rashes CENTRAL NERVOUS SYSTEM: Alert and oriented -3. No focal deficits, tone is normal in all 4 extremities. PSYCHIATRIC: Alert and oriented -3. Appropriate affect. Intact judgment and insight. - Labs CBC & Chem 7: 01/24/19 04:29 01/24/19 04:29 Labs: Abnormal Lab Results - Last 24 Hours (Table) 01/23/19 01/23/19 01/24/19 Range/Units 12:20 12:38 04:29 WBC 27.1 H 18.1 H (3.8-10.6) k/uL Neutrophils # 15.0 H (1.3-7.7) k/uL Sodium (137-145) mmol/L Potassium (3.5-5.1) mmol/L BUN (7-17) mg/dL Creatinine (0.52-1.04) mg/dL Glucose (74-99) mg/dL POC Glucose (mg/dL) 124 H (75-99) mg/dL Calcium (8.4-10.2) mg/dL 01/24/19 Range/Units 04:29 WBC (3.8-10.6) k/uL Neutrophils # (1.3-7.7) k/uL Sodium 136 L (137-145) mmol/L Potassium 5.4 H (3.5-5.1) mmol/L BUN 29 H (7-17) mg/dL Creatinine 1.85 H (0.52-1.04) mg/dL Glucose 143 H (74-99) mg/dL POC Glucose (mg/dL) (75-99) mg/dL Calcium 8.0 L (8.4-10.2) mg/dL Assessment and Plan Plan: Assessment: #1 Recurrent large paraesophageal hernia status post left thoracotomy, repair of paraesophageal hernia, Ernie-Norma procedure. Postoperative day #1. #2 Large paraesophageal hernia initially repaired in [facility] in 2004. #3 Acute hypoxic respiratory failure with basilar atelectasis secondary to above, expected outcome of surgery. [address] to the left. #4 Hypertension, history of. #5 Hyperlipidemia. #6 acute kidney injury likely related to ATN Plan: Today's chest x-ray has been reviewed with Dr. Mccain, showing basilar atelectasis, animal apical pneumothoraces, or hilar edema, patient is comfortable, denies any distress, encourage deep breathing and coughing. Vital signs are stable, no fever or chills. Chest tubes have been laced to waterseal by CT surgery, NG tube will be discontinued. Maintain pain control, continue with pulmonary toileting. She has received 500 mL of 5% albumin, we will continue with IV fluids, repeat blood work in the morning. I performed a history & physical examination of the patient and discussed their management with my nurse practitioner, Lulu Enamorado. I reviewed the nurse practitioner's note and agree with the documented findings and plan of care. Lung sounds are positive for diffuse rhonchi throughout the lung leach. The findings and the impression was discussed with the patient. I attest to the documentation by the nurse practitioner. Time with Patient: Greater than 30
[2019-01-24] MEDS: D5-0.45% NACL WITH KCL 20MEQ/L 1,000 ML IV SCH (09:46)
[2019-01-24] MEDS: PANTOPRAZOLE 40 MG/10 ML VIAL IVP SCH (09:46)
--- NOTE | 2019-01-24 12:25 | P.PN ---
Subjective Progress Note Date: 01/24/19 Principal diagnosis: Recurrent paraesophageal hernia. History of paraesophageal hernia with laparoscopic repair in 2004 at [facility], coronary artery disease, hypertension, hyperlipidemia, previous tobacco dependence, medication-induced acute kidney injury, and GERD. POD #1 left thoracotomy, repair of paraesophageal hernia, Ernie-Norma procedure The patient is currently sitting up in a recliner in no acute distress. States pain is controlled on current medication regimen, mostly her pain is in her back from lying in bed, denies shortness of breath, denies any nausea/vomiting/abdominal pain. Has been tolerating ice chips without difficulty. Epidural is in place and functioning appropriately. Urine output has been low and the patient has received IV fluid boluses, otherwise hemodynamically stable. Objective - Vital Signs Vital signs: Vital Signs Temp 99.2 F 01/24/19 08:00 Pulse 87 01/24/19 12:00 Resp 26 H 01/24/19 12:00 BP 126/48 01/24/19 12:00 Pulse Ox 95 01/24/19 12:00 Intake & Output 01/23/19 01/24/19 01/24/19 18:59 06:59 18:59 Intake Total 2208.35 1300 639.067 Output Total 750 468 465 Balance 1458.35 832 174.067 Weight 89.3 kg Intake: IV 1000 1200 200 ACETAMINOPHEN IV (For NPO 100 ) 1,000 mg In Empty Bag 1 bag @ 400 mls/hr IVPB Q6HR [facility] Rx#:[id number] D5-0.45% NaCl with KCl 1100 200 20Meq/l 1,000 ml @ 100 mls/hr IV .Q10H [facility] Rx#: [id number] Intake, IV Titration 1208.35 100 439.067 Amount ACETAMINOPHEN IV (For NPO 100 ) 1,000 mg In Empty Bag 1 bag @ 400 mls/hr IVPB Q6HR [facility] Rx#:[id number] Albumin Human 5% 250 ml 250 In Empty Bag 1 bag @ 250 mls/hr IVPB ONCE STA Rx#: [id number] Albumin Human 5% 250 ml 250 In Empty Bag 1 bag @ 250 mls/hr IVPB ONCE STA Rx#: [id number] D5-0.45% NaCl with KCl 400 100 20Meq/l 1,000 ml @ 100 mls/hr IV .Q10H [facility] Rx#: [id number] Dextrose 5%-0.45% NaCl 1, 400 000 ml @ 100 mls/hr IV . Q10H [facility] Rx#:[id number] Lactated Ringers 1,000 ml 200 @ 0 mls/hr IV .[facility] Rx#:[id number] Ropivacaine 400 mg 8.35 39.067 Hydromorphone (Pf) 5 mg In Sodium Chloride 0.9% 170 ml @ Per Protocol EPIDURAL .Q0M PRN Rx#: [id number] Output: Chest Tube Drainage 400 200 190 Left Anterior Chest Tube 265 130 120 Left Posterior Chest Tube 135 70 70 Drainage 60 Left Anterior Chest 60 Left Posterior Chest 0 Urine 200 208 275 Estimated Blood Loss 150 Other: Voiding Method Indwelling Catheter Indwelling Catheter ABP, PAP, CO, CI - Last Documented Arterial Blood Pressure 118/63 - Constitutional General appearance: Present: cooperative, no acute distress, obese - Respiratory Details: Lungs sounds diminished bilaterally. Respirations even, nonlabored. Currently on 3 L nasal cannula with oxygen saturation 95%. Only able to achieve 500 mL on her incentive spirometry. Left anterior chest tube to continuous wall suction, 110 mL serosanguineous drainage overnight, 450 mL since surgery. Left posterior chest tube to continuous wall suction, 70 mL serosanguineous drainage overnight, 300 mL since surgery. No air leaks present. - Cardiovascular Details: S1, S2 present. Regular rate and rhythm, sinus rhythm on telemetry. Palpable peripheral pulses bilaterally. No edema present. No calf pain or tenderness noted. SCDs present. - Gastrointestinal Gastrointestinal Comment(s): Abdomen soft, nontender, nondistended. Active bowel sounds present 4 quadrants. NG tube present to low intermittent suction. Tolerating ice chips. - Genitourinary Genitourinary Comment(s): Crowell present draining clear, yellow urine. Output 15-20 mL/h overnight. - Integumentary Integumentary Comment(s): Skin is warm and dry with evidence of good perfusion. - Neurologic Neurologic: Present: CNII-XII intact - Musculoskeletal Musculoskeletal: Present: strength equal bilaterally - Psychiatric Psychiatric: Present: A&O x's 3, appropriate affect, intact judgment & insight - Allied health notes Allied health notes reviewed: nursing - Labs CBC & Chem 7: 01/24/19 04:29 01/24/19 04:29 Labs: Abnormal Lab Results - Last 24 Hours (Table) 01/23/19 01/23/19 01/24/19 Range/Units 12:20 12:38 04:29 WBC 27.1 H 18.1 H (3.8-10.6) k/uL Neutrophils # 15.0 H (1.3-7.7) k/uL Sodium (137-145) mmol/L Potassium (3.5-5.1) mmol/L BUN (7-17) mg/dL Creatinine (0.52-1.04) mg/dL Glucose (74-99) mg/dL POC Glucose (mg/dL) 124 H (75-99) mg/dL Calcium (8.4-10.2) mg/dL 01/24/19 Range/Units 04:29 WBC (3.8-10.6) k/uL Neutrophils # (1.3-7.7) k/uL Sodium 136 L (137-145) mmol/L Potassium 5.4 H (3.5-5.1) mmol/L BUN 29 H (7-17) mg/dL Creatinine 1.85 H (0.52-1.04) mg/dL Glucose 143 H (74-99) mg/dL POC Glucose (mg/dL) (75-99) mg/dL Calcium 8.0 L (8.4-10.2) mg/dL - Imaging and Cardiology Chest x-ray: report reviewed, image reviewed Assessment and Plan Assessment: 1. Recurrent paraesophageal hernia, status post left thoracotomy with repair of paraesophageal hernia, Ernie-Norma procedure 2. History of paraesophageal hernia status post laparoscopic repair in 2004 at [facility] 3. Coronary artery disease 4. Hypertension 5. Hyperlipidemia 6. Previous tobacco dependence 7. Medication-induced acute kidney injury 8. GERD Plan: 1. Patient's NG tube was discontinued this morning she may have ice chips and sips of water. If tolerated we will initiate clear liquid diet. 2. Chest tubes placed to waterseal. 3. IV fluids changed to D5.45 without potassium. Lasix 20 mg IV push given 1. 4. Keep Crowell catheter for strict accurate intake and output. 5. Increase activity, ambulate as tolerated. 6. Wean O2 as tolerated. Encourage incentive spirometry use 10 times every h our while awake. 7. Pain control with current medication regimen. 8. GI/DVT prophylaxis. 9. Bronchodilators per pulmonology. 10. More recommendations to follow based on patient's clinical course Time with Patient: Greater than 30
[2019-01-25] MEDS: DEXTROSE 5%-0.45% NACL 1,000 ML IV SCH ×3 (04:38→22:31)
[2019-01-25] MEDS: METOPROLOL TARTRATE 5 MG/5 ML VIAL IVP SCH (05:50)
[2019-01-25 06:10] LABS: HGB 11.4 gm/dL (11.4-16.0); MCH 31.5 pg (25.0-35.0); MCHC 32.6 g/dL (31.0-37.0); MCV 96.4 fL (80.0-100.0); Mean Platelet Volume 7.8; Platelet Count 263 k/uL (150-450); RBC 3.63 m/uL (3.80-5.40); RDW 13.9 % (11.5-15.5); WBC 19.8 k/uL (3.8-10.6)
[2019-01-25 06:13] LABS: Calcium 8.6 mg/dL (8.4-10.2); Magnesium 1.9 mg/dL (1.6-2.3); Potassium 4.8 mmol/L (3.5-5.1)
--- NOTE | 2019-01-25 06:43 | XR ---
EXAMINATION TYPE: XR chest 1V portable DATE OF EXAM: 01/25/2019 HISTORY: Paraesophageal hernia repair. REFERENCE: Previous study dated 01/24/2019. FINDINGS: There continues to be a tiny left apical pneumothorax. Right-sided pneumothorax is not seen with certainty. There continues to be a left pleural drain. The patient is NG tube is been removed. The heart is mildly enlarged. There is bibasilar airspace disease. There are small, bilateral effusio ns. IMPRESSION: CONTINUING POSTOPERATIVE CHANGE.
--- NOTE | 2019-01-25 07:07 | P.PN ---
Progress Note - Text Progress Note Date: 01/25/19 Patient w/o complaints of pain. Denies headache or weakness. Epidural @ 7 ml/hr. Epidural site is clean and dry. A/P POD#3 s/p paraesophageal hernia repair through left thoracotomy - continue epidural
[2019-01-25] MEDS: IPRATROPIUM-ALBUTEROL 3 ML NEB IH SCH ×4 (07:24→19:31)
[2019-01-25] MEDS: HEPARIN SODIUM,PORCINE 5,000 UNIT/ML 1 ML VIAL SQ SCH ×2 (08:07→16:21)
[2019-01-25] MEDS: PANTOPRAZOLE 40 MG/10 ML VIAL IVP SCH (08:07)
[2019-01-25] MEDS: CITALOPRAM HYDROBROMIDE 20 MG TAB PO SCH (08:08)
[2019-01-25] MEDS: METOPROLOL TARTRATE 25 MG TAB PO SCH ×2 (08:08→22:30)
--- NOTE | 2019-01-25 08:12 | P.PN ---
Subjective Progress Note Date: 01/25/19 Principal diagnosis: Recurrent paraesophageal hernia. History of paraesophageal hernia with laparoscopic repair in 2004 at [facility], coronary artery disease, hypertension, hyperlipidemia, previous tobacco dependence, medication-induced acute kidney injury, and GERD. POD #2 left thoracotomy, repair of paraesophageal hernia, Ernie-Norma procedure The patient is currently sitting up in bed in no acute distress. States pain is controlled on current medication regimen, denies shortness of breath. NG tube discontinued yesterday. She did have 1 episode of nausea yesterday which was relieved with IV Zofran. No further nausea or vomiting. Has been tolerating c lear liquids without difficulty. Epidural is in place and functioning appropriately. Urine output adequate, hemodynamically stable. Chest tubes were placed to waterseal yesterday. Objective - Vital Signs Vital signs: Vital Signs Temp 98.2 F 01/25/19 08:00 Pulse 88 01/25/19 08:00 Resp 15 01/25/19 08:00 BP 174/78 01/25/19 08:00 Pulse Ox 93 L 01/25/19 08:00 Intake & Output 01/24/19 01/25/19 01/25/19 18:59 06:59 18:59 Intake Total 1966.418 8130 100 Output Total 785 740 145 Balance 469.067 560 -45 Weight 88.1 kg Intake: IV 200 1100 100 D5-0.45% NaCl with KCl 200 1100 100 20Meq/l 1,000 ml @ 100 mls/hr IV .Q10H [facility] Rx#: [id number] Intake, IV Titration 1054.067 100 Amount Dextrose 5%-0.45% NaCl 1, 1000 100 000 ml @ 100 mls/hr IV . Q10H [facility] Rx#:[id number] Ropivacaine 400 mg 54.067 Hydromorphone (Pf) 5 mg In Sodium Chloride 0.9% 170 ml @ Per Protocol EPIDURAL .Q0M [facility] Rx#: [id number] Oral 100 Output: Chest Tube Drainage 270 120 50 Left Anterior Chest Tube 190 100 40 Left Posterior Chest Tube 80 20 10 Drainage 80 Left Anterior Chest 50 Left Posterior Chest 30 Urine 515 540 95 Other: Voiding Method Indwelling Catheter Indwelling Catheter ABP, PAP, CO, CI - Last Documented Arterial Blood Pressure 118/63 - Constitutional General appearance: Present: cooperative, no acute distress, obese - Respiratory Details: Lungs sounds diminished bilaterally. Respirations even, nonlabored. Currently on 2 L nasal cannula with oxygen saturation 92%. Only able to achieve 500 mL on her incentive spirometry. Left anterior chest tube to waterseal, 100 mL serosanguineous drainage overnight, 350 mL since surgery. Left posterior chest tube to waterseal, 20 mL serosanguineous drainage overnight, 100 mL since surgery. No air leaks present. - Cardiovascular Details: S1, S2 present. Regular rate and rhythm, sinus rhythm on telemetry. Palpable peripheral pulses bilaterally. No edema present. No calf pain or tenderness noted. SCDs present. - Gastrointestinal Gastrointestinal Comment(s): Abdomen soft, nontender, nondistended. Active bowel sounds present 4 quadrants. Tolerating clear liquids. - Genitourinary Genitourinary Comment(s): Crowell present draining clear, yellow urine. Output 40-50 mL/h overnight. - Integumentary Integumentary Comment(s): Skin is warm and dry with evidence of good perfusion. - Neurologic Neurologic: Present: CNII-XII intact - Musculoskeletal Musculoskeletal: Present: strength equal bilaterally - Psychiatric Psychiatric: Present: A&O x's 3, appropriate affect, intact judgment & insight - Allied health notes Allied health notes reviewed: nursing - Labs CBC & Chem 7: 01/25/19 05:46 01/25/19 05:46 Labs: Abnormal Lab Results - Last 24 Hours (Table) 01/25/19 01/25/19 Range/Units 05:46 05:46 WBC 19.8 H (3.8-10.6) k/uL RBC 3.63 L (3.80-5.40) m/uL Sodium 135 L (137-145) mmol/L BUN 18 H (7-17) mg/dL Creatinine 1.10 H (0.52-1.04) mg/dL Glucose 127 H (74-99) mg/dL - Imaging and Cardiology Chest x-ray: report reviewed, image reviewed Assessment and Plan Assessment: 1. Recurrent paraesophageal hernia, status post left thoracotomy with repair of paraesophageal hernia, Ernie-Norma procedure 2. History of paraesophageal hernia status post laparoscopic repair in 2004 at [facility] 3. Coronary artery disease 4. Hypertension 5. Hyperlipidemia 6. Previous tobacco dependence 7. Medication-induced acute kidney injury 8. GERD Plan: 1. Continue clear liquid diet. Will advance slowly as tolerated. 2. Chest tubes placed to waterseal. Likely will discontinue posterior chest tube today. 3. Will restart oral meds. 4. Discontinue Crowell catheter. 5. Increase activity, ambulate as tolerated. 6. Wean O2 as tolerated. Encourage incentive spirometry use 10 times every hour while awake. 7. Pain control with current medication regimen. 8. GI/DVT prophylaxis. 9. Bronchodilators per pulmonology. 10. More recommendations to follow based on patient's clinical course Time with Patient: Greater than 30
[2019-01-25] MEDS: amLODIPine 2.5 MG TAB PO SCH (11:28)
[2019-01-25] MEDS: ROPIVACAINE 400 MG, HYDROMORPHONE (PF) 5 MG in SODIUM CHLORIDE 0.9% 170 ML EPIDURAL PRN (12:30)
[2019-01-25] MEDS: ATORVASTATIN 40 MG TAB PO SCH (22:30)
--- NOTE | 2019-01-25 23:14 | P.PN ---
Subjective Progress Note Date: 01/24/19 Principal diagnosis: repair of paraesophageal hernia Patient is a 68-year-old male with a known history of nonobstructive coronary artery disease, hypertension, hyperlipidemia, recurrent paraesophageal hernia with previous surgery in 2004 at [facility] was admitted to the hospital for the repair of paraesophageal hernia. Recent CT of the abdomen pelvis and chest showed large paraesophageal hernia with much of the stomach and pancreas present in the chest cavity. Was admitted to hospital for elective surgery. Patient underwent Left thoracotomy, repair of paraesophageal hernia, Ernie-Norma procedure. Postoperatively patient was hypotensive and blood pressure improved with fluid bolus. Currently patient is intubated and sedated. Chest x-ray showed trace bilateral pleural effusions and new bibasilar airspace disease are seen that likely related to post procedural atelectasis. WBC 27.2 01/24/2019 Patient is currently sitting in a chair. Patient does have shortness of breath. No worsening chest pain/soreness. Patient does have left-sided chest tubes draining serositis fluids. Patient denied any complaints of fever or chills. No nausea no vomiting. Urine output improved. Patient was given 5% albumin yesterday. Leukocytosis improving with WBC count 18.1. Hemoglobin 11.8, potassium 5.4. BNP 29 and creatinine 1.85. Current medications reviewed. Objective - Vital Signs Vital signs: Vital Signs Temp 98.3 F 01/24/19 20:00 Pulse 93 01/24/19 20:00 Resp 18 01/24/19 20:00 BP 150/63 01/24/19 20:00 Pulse Ox 93 L 01/24/19 20:00 Intake & Output 01/24/19 01/24/19 01/25/19 06:59 18:59 06:59 Intake Total 1300 1254.067 200 Output Total 468 785 170 Balance 832 469.067 30 Weight 89.3 kg Intake: IV 1200 200 100 ACETAMINOPHEN IV (For NPO 100 ) 1,000 mg In Empty Bag 1 bag @ 400 mls/hr IVPB Q6HR [facility] Rx#:[id number] D5-0.45% NaCl with KCl 1100 200 100 20Meq/l 1,000 ml @ 100 mls/hr IV .Q10H [facility] Rx#: [id number] Intake, IV Titration 100 1054.067 100 Amount D5-0.45% NaCl with KCl 100 20Meq/l 1,000 ml @ 100 mls/hr IV .Q10H [facility] Rx#: [id number] Dextrose 5%-0.45% NaCl 1, 1000 100 000 ml @ 100 mls/hr IV . Q10H [facility] Rx#:[id number] Ropivacaine 400 mg 54.067 Hydromorphone (Pf) 5 mg In Sodium Chloride 0.9% 170 ml @ Per Protocol EPIDURAL .Q0M PRN Rx#: [id number] Output: Chest Tube Drainage 200 270 Left Anterior Chest Tube 130 190 Left Posterior Chest Tube 70 80 Drainage 60 80 Left Anterior Chest 60 50 Left Posterior Chest 0 30 Urine 208 515 90 Other: Voiding Method Indwelling Catheter Indwelling Catheter ABP, PAP, CO, CI - Last Documented Arterial Blood Pressure 118/63 - Exam PHYSICAL EXAMINATION: Patient is lying in the bed comfortably, no acute distress, awake alert and oriented.. HEENT: Normocephalic. Neck is supple. Pupils reactive. Nostrils clear. Oral cavity is moist. Ears reveal no drainage. Neck reveals no JVD, carotid bruits, or thyromegaly. CHEST EXAMINATION: Trachea is central. Symmetrical expansion. Right basilar diminished air entry and diffuse coarse breath sounds and crackles Left-sided chest tubes 2 present. Breathing status and this fluid. CARDIAC: Normal S1, S2 with no gallops. No murmurs ABDOMEN: Soft. Bowel sounds normal. No organomegaly. No abdominal bruits. Extremities: reveal no edema. No clubbing or cyanosis Neurologically awake, alert, oriented x3 with well-coordinated movements. No focal deficits noted Skin: No rash or skin lesions. Psychiatric: Coperative. Nonsuicidal Musculoskeletal: No joint swelling or deformity. Normal range of motion. - Labs CBC & Chem 7: 01/25/19 05:46 01/25/19 05:46 Labs: Abnormal Lab Results - Last 24 Hours (Table) 01/24/19 01/24/19 Range/Units 04:29 04:29 WBC 18.1 H (3.8-10.6) k/uL Neutrophils # 15.0 H (1.3-7.7) k/uL Sodium 136 L (137-145) mmol/L Potassium 5.4 H (3.5-5.1) mmol/L BUN 29 H (7-17) mg/dL Creatinine 1.85 H (0.52-1.04) mg/dL Glucose 143 H (74-99) mg/dL Calcium 8.0 L (8.4-10.2) mg/dL Assessment and Plan Assessment: Recurrent large paraesophageal hernia. Status post Left thoracotomy, repair of paraesophageal hernia, Ernie-Norma procedure. Acute hypoxic respiratory failure postoperatively expected. Status post extubation. History of paraesophageal hernia repair in 2004 at [facility]. Hypotension improved with fluid bolus. Hypertension Hyperlipidemia GERD Previous history of smoking DVT prophylaxis. Plan: Patient is currently saturating well on nasal cannula oxygen.. Patient will be continued on IV hydration. DuoNeb's. Chest tube management as per CT surgery. Pulmonary is on board. We will continue the current management. Further recommendations based on the clinical course. Time with Patient: Greater than 30
--- NOTE | 2019-01-25 23:19 | P.PN ---
Subjective Progress Note Date: 01/25/19 Principal diagnosis: repair of paraesophageal hernia Patient is a 68-year-old male with a known history of nonobstructive coronary artery disease, hypertension, hyperlipidemia, recurrent paraesophageal hernia with previous surgery in 2004 at [facility] was admitted to the hospital for the repair of paraesophageal hernia. Recent CT of the abdomen pelvis and chest showed large paraesophageal hernia with much of the stomach and pancreas present in the chest cavity. Was admitted to hospital for elective surgery. Patient underwent Left thoracotomy, repair of paraesophageal hernia, Ernie-Norma procedure. Postoperatively patient was hypotensive and blood pressure improved with fluid bolus. Currently patient is intubated and sedated. Chest x-ray showed trace bilateral pleural effusions and new bibasilar airspace disease are seen that likely related to post procedural atelectasis. WBC 27.2 01/24/2019 Patient is currently sitting in a chair. Patient does have shortness of breath. No worsening chest pain/soreness. Patient does have left-sided chest tubes draining serositis fluids. Patient denied any complaints of fever or chills. No nausea no vomiting. Urine output improved. Patient was given 5% albumin yesterday. Leukocytosis improving with WBC count 18.1. Hemoglobin 11.8, potassium 5.4. BNP 29 and creatinine 1.85. 01/25/2018 Patient is currently sitting in a chair comfortably. Saturating well on nasal cannula. No worsening chest pain or shortness of breath. Chest tubes have been removed. Patient is being continued on incentive spirometry. Hemodynamically stable. Chest x-ray showed tiny left apical pneumothorax. Continuing postoperative changes. Patient is being continued on IV hydration. Basic count 19.5, BUN 18 and creatinine 1.1 Current medications reviewed. Objective - Vital Signs Vital signs: Vital Signs Temp 98.3 F 01/25/19 20:00 Pulse 84 01/25/19 21:00 Resp 14 01/25/19 21:00 BP 153/66 01/25/19 21:00 Pulse Ox 95 01/25/19 21:00 Intake & Output 01/25/19 01/25/19 01/26/19 06:59 18:59 06:59 Intake Total 1300 1214.634 300 Output Total 740 485 528 Balance 560 729.634 -228 Weight 88.1 kg Intake: IV 1100 100 D5-0.45% NaCl with KCl 1100 100 20Meq/l 1,000 ml @ 100 mls/hr IV .Q10H [facility] Rx#: [id number] Intake, IV Titration 100 1114.634 300 Amount Dextrose 5%-0.45% NaCl 1, 100 1000 300 000 ml @ 100 mls/hr IV . Q10H [facility] Rx#:[id number] Ropivacaine 400 mg 114.634 Hydromorphone (Pf) 5 mg In Sodium Chloride 0.9% 170 ml @ Per Protocol EPIDURAL .Q0M PRN Rx#: [id number] Oral 100 Output: Chest Tube Drainage 120 50 Left Anterior Chest Tube 100 40 Left Posterior Chest Tube 20 10 Drainage 80 Left Anterior Chest 50 Left Posterior Chest 30 Urine 540 435 528 Other: Voiding Method Indwelling Catheter Indwelling Catheter ABP, PAP, CO, CI - Last Documented Arterial Blood Pressure 118/63 - Exam PHYSICAL EXAMINATION: Patient is lying in the bed comfortably, no acute distress, awake alert and oriented.. HEENT: Normocephalic. Neck is supple. Pupils reactive. Nostrils clear. Oral cavity is moist. Ears reveal no drainage. Neck reveals no JVD, carotid bruits, or thyromegaly. CHEST EXAMINATION: Trachea is central. Symmetrical expansion. Right basilar diminished air entry and diffuse coarse breath sounds . Minimal basilar crackles. CARDIAC: Normal S1, S2 with no gallops. No murmurs ABDOMEN: Soft. Bowel sounds normal. No organomegaly. No abdominal bruits. Extremities: reveal no edema. No clubbing or cyanosis Neurologically awake, alert, oriented x3 with well-coordinated movements. No focal deficits noted Skin: No rash or skin lesions. Psychiatric: Coperative. Nonsuicidal Musculoskeletal: No joint swelling or deformity. Normal range of motion. - Labs CBC & Chem 7: 01/25/19 05:46 01/25/19 05:46 Labs: Abnormal Lab Results - Last 24 Hours (Table) 01/25/19 01/25/19 Range/Units 05:46 05:46 WBC 19.8 H (3.8-10.6) k/uL RBC 3.63 L (3.80-5.40) m/uL Sodium 135 L (137-145) mmol/L BUN 18 H (7-17) mg/dL Creatinine 1.10 H (0.52-1.04) mg/dL Glucose 127 H (74-99) mg/dL Assessment and Plan Assessment: Recurrent large paraesophageal hernia. Status post Left thoracotomy, repair of paraesophageal hernia, Ernie-Norma procedure. Acute hypoxic respiratory failure postoperatively expected. Status post extubation. History of paraesophageal hernia repair in 2004 at [facility]. Hypotension improved with fluid bolus. Hypertension Hyperlipidemia GERD Previous history of smoking DVT prophylaxis. Plan: Patient is currently saturating well on nasal cannula oxygen.. Patient will be continued on IV hydration. DuoNeb's. Chest tubes removed. Pulmonary is on board. We will continue the current management. Encourage ambulation and incentive spirometry. Further recommendations based on the clinical course. Time with Patient: Greater than 30
[2019-01-26] MEDS: HEPARIN SODIUM,PORCINE 5,000 UNIT/ML 1 ML VIAL SQ SCH ×4 (00:52→23:09)
[2019-01-26 05:35] LABS: HCT 34.8 % (34.0-46.0); HGB 11.1 gm/dL (11.4-16.0); MCH 31.1 pg (25.0-35.0); Mean Platelet Volume 7.7; Platelet Count 261 k/uL (150-450); RBC 3.58 m/uL (3.80-5.40); WBC 17.3 k/uL (3.8-10.6)
[2019-01-26 05:41] LABS: Calcium 8.7 mg/dL (8.4-10.2); Potassium 4.8 mmol/L (3.5-5.1)
--- NOTE | 2019-01-26 06:02 | XR ---
EXAMINATION TYPE: XR chest 1V portable DATE OF EXAM: 01/26/2019 HISTORY: post paraesophageal hernia repair. REFERENCE: Previous study dated 01/25/2019. FINDINGS: Left pleural drain has been removed. No definite pneumothorax is seen. There is bibasilar airspace disease worse in the left than the right. There are small bilateral effus ions. Heart size is mildly prominent. IMPRESSION: 1. RESOLUTION OF THE PATIENT'S LEFT-SIDED PNEUMOTHORAX. 2. MILD CARDIOMEGALY. 3. BIBASILAR AIRSPACE DISEASE. 4. SMALL, BILATERAL EFFUSIONS.
--- NOTE | 2019-01-26 07:22 | P.PN ---
Progress Note - Text Progress Note Date: 01/26/19 Pt w/o complaints. Pain controlled. Denies weakness, headache, or pruritis. Chest tubes have been removed. No change in epidural. Epidural site clean and dry. A/P POD # 3 s/p L thoracotomy, paraesophageal hernia repair - november d/c epidural today or tomorrow after transition to PO analgesia
[2019-01-26] MEDS: PANTOPRAZOLE 40 MG/10 ML VIAL IVP SCH (07:39)
[2019-01-26] MEDS: BISACODYL 10 MG SUPP RECTAL SCH (07:42)
[2019-01-26] MEDS ORDERED: ACETAMINOPHEN TAB 500 MG TAB PO PRN (08:07)
[2019-01-26] MEDS ORDERED: FUROSEMIDE 10 MG/ML 2 ML VIAL IV ONE (08:19)
[2019-01-26] MEDS: CITALOPRAM HYDROBROMIDE 20 MG TAB PO SCH (08:20)
[2019-01-26] MEDS: METOPROLOL TARTRATE 25 MG TAB PO SCH ×2 (08:20→20:43)
[2019-01-26] MEDS: ASPIRIN 81 MG PO SCH (08:20)
--- NOTE | 2019-01-26 08:21 | P.PN ---
Subjective Progress Note Date: 01/26/19 Principal diagnosis: Recurrent paraesophageal hernia. History of paraesophageal hernia with laparoscopic repair in 2004 at [facility], coronary artery disease, hypertension, hyperlipidemia, previous tobacco dependence, medication-induced acute kidney injury, and GERD. POD #3 left thoracotomy, repair of paraesophageal hernia, Ernie-Norma procedure The patient is currently sitting up in bed in no acute distress. States pain is controlled on current medication regimen, denies shortness of breath. Chest tubes discontinued yesterday. Has been tolerating liquids without difficulty. Epidural is in place and functioning appropriately. Urine output improved, hem odynamically stable. Objective - Vital Signs Vital signs: Vital Signs Temp 98.4 F 01/26/19 04:00 Pulse 71 01/26/19 07:00 Resp 14 01/26/19 07:00 BP 133/62 01/26/19 07:00 Pulse Ox 95 01/26/19 07:00 Intake & Output 01/25/19 01/26/19 01/26/19 18:59 06:59 18:59 Intake Total 4868.150 3436 124.417 Output Total 485 1978 0 Balance 729.634 -578 124.417 Weight 86.7 kg Intake: IV 100 D5-0.45% NaCl with KCl 100 20Meq/l 1,000 ml @ 100 mls/hr IV .Q10H [facility] Rx#: [id number] Intake, IV Titration 4009.922 7066 124.417 Amount Dextrose 5%-0.45% NaCl 1, 1000 1200 40 000 ml @ 40 mls/hr IV . Q24H [facility] Rx#:[id number] Ropivacaine 400 mg 114.634 84.417 Hydromorphone (Pf) 5 mg In Sodium Chloride 0.9% 170 ml @ Per Protocol EPIDURAL .Q0M PRN Rx#: [id number] Oral 200 Output: Chest Tube Drainage 50 Left Anterior Chest Tube 40 Left Posterior Chest Tube 10 Urine 435 1978 0 Other: Voiding Method Indwelling Catheter Indwelling Catheter ABP, PAP, CO, CI - Last Documented Arterial Blood Pressure 118/63 - Constitutional General appearance: Present: cooperative, no acute distress, obese - Respiratory Details: Lungs sounds diminished bilaterally. Respirations even, nonlabored. Currently on 2 L nasal cannula with oxygen saturation 94%. Only able to achieve 500 mL on her incentive spirometry. - Cardiovascular Details: S1, S2 present. Regular rate and rhythm, sinus rhythm on telemetry. Palpable peripheral pulses bilaterally. No edema present. No calf pain or tenderness noted. SCDs present. - Gastrointestinal Gastrointestinal Comment(s): Abdomen soft, nontender, nondistended. Active bowel sounds present 4 quadrants. Tolerating full liquids. Denies flatus. - Genitourinary Genitourinary Comment(s): Crowell discontinued this morning, due to void. Urine output 100-300 mL/h overnight. - Integumentary Integumentary Comment(s): Skin is warm and dry with evidence of good perfusion. - Neurologic Neurologic: Present: CNII-XII intact - Musculoskeletal Musculoskeletal: Present: gait normal, strength equal bilaterally - Psychiatric Psychiatric: Present: A&O x's 3, appropriate affect, intact judgment & insight - Allied health notes Allied health notes reviewed: nursing - Labs CBC & Chem 7: 01/26/19 04:27 01/26/19 04:27 Labs: Abnormal Lab Results - Last 24 Hours (Table) 01/26/19 01/26/19 Range/Units 04:27 04:27 WBC 17.3 H (3.8-10.6) k/uL RBC 3.58 L (3.80-5.40) m/uL Hgb 11.1 L (11.4-16.0) gm/dL Sodium 136 L (137-145) mmol/L Glucose 127 H (74-99) mg/dL - Imaging and Cardiology Chest x-ray: report reviewed, image reviewed Assessment and Plan Assessment: 1. Recurrent paraesophageal hernia, status post left thoracotomy with repair of paraesophageal hernia, Ernie-Norma procedure 2. History of paraesophageal hernia status post laparoscopic repair in 2004 at [facility] 3. Coronary artery disease 4. Hypertension 5. Hyperlipidemia 6. Previous tobacco dependence 7. Medication-induced acute kidney injury 8. GERD Plan: 1. Will advance to full diet. 2. Dulcolax suppository daily until bowel movement. 3. Increase activity, ambulate in hallway as tolerated. 4. Wean O2 as tolerated. Encourage incentive spirometry use 10 times every hour while awake. 5. Pain control with current medication regimen. Anesthesia to DC epidural. Oral pain medication added. 6. GI/DVT prophylaxis. 7. Bronchodilators per pulmonology. 8. Will place transfer orders for 3 S. cardiac stepdown unit, may transfer when bed available. 9. More recommendations to follow based on patient's clinical course Time with Patient: Greater than 30
[2019-01-26] MEDS: IPRATROPIUM-ALBUTEROL 3 ML NEB IH SCH ×4 (08:26→19:15)
--- NOTE | 2019-01-26 09:09 | P.PN ---
Subjective Progress Note Date: 01/26/19 Principal diagnosis: Recurrent paraesophageal hernia This is a very pleasant 68-year-old female patient who follows with Dr. Turpin as her primary care physician. She has a history of hypertension, hyperlipidemia, recurrent paraesophageal hernia. Her previous surgery was done in 2004 at [facility]. Recent CAT scan of the abdomen and chest demonstrates a large paraesophageal hernia with much of the stomach and pancreas present in the chest cavity. She was admitted today electively for a left thoracotomy, repair of the paraesophageal hernia, Ernie Norma procedure performed by Dr. Rodriguez this morning. She is seen today post recovery in the intensive care unit. He did have some issues with hypotension while in recovery room following a bolus for pain control and the epidural and a milligram of Dilaudid. She required 500 mL of fluid resuscitation. She's been initiated on D5.45 with 20 KCl at 100 ML's per hour. Urine output is marginal. Not requiring pressors at this point. Current pressure 95/46, temperature is 96.3 axillary, bradycardic in the 50s. She is maintaining O2 saturations in the 90s on 4 L/m per nasal cannula. Postop chest x-ray reveals trace bilateral pleural effusions and new bibasilar airspace disease likely related to post procedural atelectasis. 2 chest tubes remain in place when anteriorly one posteriorly. Each attached to Pleur-evacs. No significant drainage thus far. White count 27.1. Hemoglobin 12.0. She has been initiated on DuoNeb inhalations,. Ropivacaine/hydromorphone pain pump in place. She is currently comfortable in no acute distress. On 01/24/2019 patient seen in follow-up in intensive care unit. This is postoperative day 1, status post thoracotomy, paraesophageal hernia repair, Ernie-Norma procedure. She is currently on 3 L of oxygen, the pulse ox of 94%, afebrile, hemodynamically stable, IV D5 0.45 at a rate of 100 ML per hour. No other drips, epidural ropivacaine and Dilaudid infusing at a rate of 2 ML per hour. Incentive spirometry effort is suboptimal, about 500 on today's exam. Lung sounds are diminished, with scattered rhonchi, patient does have scattered rhonchi. 2 left sided chest tubes, 300 mL of servicing this output from the posterior chest tube, and 450 from the anterior chest tube. Patient more awake today, she states her pain is well controlled. chest x-ray has been reviewed showing minimal apical pneumothoraces, probable atelectasis, perihilar edema. His labs have been reviewed, showing with blood cell count of 18.1, hemoglobin of 11.8, serum sodium is 136, potassium is 5.4, BUN of 29, creatinine is 1.85. Urine output in the order of 15-35 ML per hour. Patient has been given 500 mL of 5% albumin last night. On 01/26/2019 patient seen in follow-up in the intensive care unit, this is postop day 3, status post thoracotomy, paraesophageal hernia repair, Ernie- Norma procedure. Currently on 2 L of oxygen with a pulse ox of 95%, she is afebrile, hemodynamically patient is stable, IV D5 0.45 at a rate of 40 ML per hour, epidural with bupivacaine and Dilaudid infusing at 4 ML per hour. This is anticipated to be discontinued today, she states her pain is reasonably controlled, chest tubes have been discontinued yesterday, left posterior lateral chest tube sites and incision is clean dry and intact, covered with dressing. Sounds positive for basilar crackles, left greater than the right, IS is suboptimal, patient is only 750 on it today. Today's labs have been reviewed showing white blood cell count of 17.3, hemoglobin of 11.1, serum sodium is 136, the rest of the electrolytes and renal profile are within normal limits. Today's chest x-ray has been reviewed, showing resolution of the patient's left- sided pneumothorax, mild cardiomegaly, bibasilar airspace disease, and small bilateral pleural effusions. NG-tube has been discontinued patient had passed her swallow evaluation, and is tolerating oral intake Objective - Vital Signs Vital signs: Vital Signs Temp 98.4 F 01/26/19 04:00 Pulse 80 01/26/19 08:41 Resp 14 01/26/19 07:00 BP 133/62 01/26/19 07:00 Pulse Ox 95 01/26/19 07:00 Intake & Output 01/25/19 01/26/19 01/26/19 18:59 06:59 18:59 Intake Total 6714.049 5953 124.417 Output Total 485 1978 0 Balance 729.634 -578 124.417 Weight 86.7 kg Intake: IV 100 D5-0.45% NaCl with KCl 100 20Meq/l 1,000 ml @ 100 mls/hr IV .Q10H [facility] Rx#: [id number] Intake, IV Titration 6547.496 7808 124.417 Amount Dextrose 5%-0.45% NaCl 1, 1000 1200 40 000 ml @ 40 mls/hr IV . Q24H [facility] Rx#:[id number] Ropivacaine 400 mg 114.634 84.417 Hydromorphone (Pf) 5 mg In Sodium Chloride 0.9% 170 ml @ Per Protocol EPIDURAL .Q0M PRN Rx#: [id number] Oral 200 Output: Chest Tube Drainage 50 Left Anterior Chest Tube 40 Left Posterior Chest Tube 10 Urine 435 1978 0 Other: Voiding Method Indwelling Catheter Indwelling Catheter ABP, PAP, CO, CI - Last Documented Arterial Blood Pressure 118/63 - Exam GENERAL EXAM: Alert, pleasant, 68-year-old white female, 2 L of oxygen, with a pulse ox of 94% comfortable in no apparent distress. HEAD: Normocephalic/atraumatic. EYES: Normal reaction of pupils, equal size. Conjunctiva pink, sclera white. NOSE: Clear with pink turbinates. NG-tube is in place, to low intermittent suction THROAT: No erythema or exudates. NECK: No masses, no JVD, no thyroid enlargement, no adenopathy. CHEST: No chest wall deformity. Symmetrical expansion. Interval removal of 2 left-sided chest tubes, posterior chest incision is clean dry and intact, chest tube site is clean dry and intact, covered with dressings. Epidural catheter a nd posterior chest, with Ropivacaine and Dilaudid infusing at 4 ML per hour LUNGS: Equal air entry with rales, at the bases, left greater than the right she has a weak congested cough, not productive CVS: Regular rate and rhythm, normal S1 and S2, no gallops, no murmurs, no rubs ABDOMEN: Soft, nontender. No hepatosplenomegaly, normal bowel sounds, no guarding or rigidity. EXTREMITIES: No clubbing, no edema, no cyanosis, 2+ pulses and upper and lower extremities. MUSCULOSKELETAL: Muscle strength and tone normal. SPINE: No scoliosis or deformity SKIN: No rashes CENTRAL NERVOUS SYSTEM: Alert and oriented -3. No focal deficits, tone is normal in all 4 extremities. PSYCHIATRIC: Alert and oriented -3. Appropriate affect. Intact judgment and insight. - Labs CBC & Chem 7: 01/26/19 04:27 01/26/19 04:27 Labs: Abnormal Lab Results - Last 24 Hours (Table) 01/26/19 01/26/19 Range/Units 04:27 04:27 WBC 17.3 H (3.8-10.6) k/uL RBC 3.58 L (3.80-5.40) m/uL Hgb 11.1 L (11.4-16.0) gm/dL Sodium 136 L (137-145) mmol/L Glucose 127 H (74-99) mg/dL Assessment and Plan Plan: Assessment: #1 Recurrent large paraesophageal hernia status post left thoracotomy, repair of paraesophageal hernia, Ernie-Norma procedure. Postoperative day #2. #2 Large paraesophageal hernia initially repaired in [facility] in 2004. #3 Acute hypoxic respiratory failure with basilar atelectasis secondary to above, expected outcome of surgery. [address] to the left. #4 Hypertension, history of. #5 Hyperlipidemia. #6 acute kidney injury likely related to ATN Plan: Continue encouraging deep breathing and coughing, today's chest x-ray has been reviewed, showing bibasilar atelectasis, small pleural effusions, resolution of the left-sided pneumothorax. Chest tubes have been removed, patient is doing well, epidural is anticipated to be removed, increase activity as tolerated, signs are stable, no fever chills, encouraged patient to sit up in the chair. We'll give the patient a dose of IV Lasix today, 40 mg 1 I performed a history & physical examination of the patient and discussed their management with my nurse practitioner, Lulu Enamorado. I reviewed the nurse practitioner's note and agree with the documented findings and plan of care. Lung sounds are positive for diffuse rhonchi throughout the lung leach. The findings and the impression was discussed with the patient. I attest to the documentation by the nurse practitioner. Time with Patient: Less than 30
[2019-01-26] MEDS: DEXTROSE 5%-0.45% NACL 1,000 ML IV SCH (11:43)
[2019-01-26] MEDS: amLODIPine 2.5 MG TAB PO SCH (11:58)
[2019-01-26] MEDS: ATORVASTATIN 40 MG TAB PO SCH (20:43)
[2019-01-26] MEDS: SENNOSIDES-DOCUSATE SODIUM 1 EACH TAB PO SCH (20:43)
[2019-01-26] MEDS: traMADol 50 MG TAB PO PRN (20:43)
[2019-01-26] MEDS ORDERED: METOPROLOL TARTRATE 5 MG/5 ML VIAL IVP STA (21:44)
[2019-01-26] MEDS ORDERED: METOPROLOL TARTRATE 25 MG TAB PO STA (22:53)
--- NOTE | 2019-01-27 02:41 | P.PN ---
Subjective Progress Note Date: 01/26/19 Principal diagnosis: repair of paraesophageal hernia Patient is a 68-year-old male with a known history of nonobstructive coronary artery disease, hypertension, hyperlipidemia, recurrent paraesophageal hernia with previous surgery in 2005 at [facility] was admitted to the hospital for the repair of paraesophageal hernia. Recent CT of the abdomen pelvis and chest showed large paraesophageal hernia with much of the stomach and pancreas present in the chest cavity. Was admitted to hospital for elective surgery. Patient underwent Left thoracotomy, repair of paraesophageal hernia, Ernie-Norma procedure. Postoperatively patient was hypotensive and blood pressure improved with fluid bolus. Currently patient is intubated and sedated. Chest x-ray showed trace bilateral pleural effusions and new bibasilar airspace disease are seen that likely related to post procedural atelectasis. WBC 27.2 01/24/2019 Patient is currently sitting in a chair. Patient does have shortness of breath. No worsening chest pain/soreness. Patient does have left-sided chest tubes draining serositis fluids. Patient denied any complaints of fever or chills. No nausea no vomiting. Urine output improved. Patient was given 5% albumin yesterday. Leukocytosis improving with WBC count 18.1. Hemoglobin 11.8, potassium 5.4. BNP 29 and creatinine 1.85. 01/25/2018 Patient is currently sitting in a chair comfortably. Saturating well on nasal cannula. No worsening chest pain or shortness of breath. Chest tubes have been removed. Patient is being continued on incentive spirometry. Hemodynamically stable. Chest x-ray showed tiny left apical pneumothorax. Continuing postoperative changes. Patient is being continued on IV hydration. WBC 19.5, BUN 18 and creatinine 1.1 01/26/2019 Patient is status post left thoracotomy and repair of paraesophageal hernia, Ernie-Norma procedure. Currently patient is able to sit in a chair and is saturating at 95% on 2 L nausea cannula oxygen. Chest pain and shortness of breath is improving. Chest x-ray showed resolution of left-sided pneumothorax., Mild cardiomegaly, bibasilar air space disease and small bilateral pleural effusions. Patient passes swallow's evolution and was started on oral diet. No fever no chills. WBC 17.3 which is improving.. Renal function normalized. Current medications reviewed. Objective - Vital Signs Vital signs: Vital Signs Temp 97.9 F 01/26/19 12:00 Pulse 77 01/26/19 15:23 Resp 13 01/26/19 12:00 BP 145/76 01/26/19 12:00 Pulse Ox 95 01/26/19 12:00 Intake & Output 01/25/19 01/26/19 01/26/19 18:59 06:59 18:59 Intake Total 3852.492 8627 244.417 Output Total 485 1978 350 Balance 729.634 -578 -105.583 Weight 86.7 kg Intake: IV 100 D5-0.45% NaCl with KCl 100 20Meq/l 1,000 ml @ 100 mls/hr IV .Q10H [facility] Rx#: [id number] Intake, IV Titration 4491.993 2087 244.417 Amount Dextrose 5%-0.45% NaCl 1, 1000 1200 160 000 ml @ 40 mls/hr IV . Q24H [facility] Rx#:[id number] Ropivacaine 400 mg 114.634 84.417 Hydromorphone (Pf) 5 mg In Sodium Chloride 0.9% 170 ml @ Per Protocol EPIDURAL .Q0M PRN Rx#: [id number] Oral 200 Output: Chest Tube Drainage 50 Left Anterior Chest Tube 40 Left Posterior Chest Tube 10 Urine 435 1978 350 Other: Voiding Method Indwelling Catheter Indwelling Catheter Toilet Bedside Commode Indwelling Catheter ABP, PAP, CO, CI - Last Documented Arterial Blood Pressure 118/63 - Exam PHYSICAL EXAMINATION: Patient is lying in the bed comfortably, no acute distress, awake alert and oriented.. HEENT: Normocephalic. Neck is supple. Pupils reactive. Nostrils clear. Oral cavity is moist. Ears reveal no drainage. Neck reveals no JVD, carotid bruits, or thyromegaly. CHEST EXAMINATION: Trachea is central. Symmetrical expansion. Right basilar diminished air entry and diffuse coarse breath sounds . Minimal basilar crackles. CARDIAC: Normal S1, S2 with no gallops. No murmurs ABDOMEN: Soft. Bowel sounds normal. No organomegaly. No abdominal bruits. Extremities: reveal no edema. No clubbing or cyanosis Neurologically awake, alert, oriented x3 with well-coordinated movements. No focal deficits noted Skin: No rash or skin lesions. Psychiatric: Coperative. Nonsuicidal Musculoskeletal: No joint swelling or deformity. Normal range of motion. - Labs CBC & Chem 7: 01/26/19 04:27 01/26/19 04:27 Labs: Abnormal Lab Results - Last 24 Hours (Table) 01/26/19 01/26/19 Range/Units 04:27 04:27 WBC 17.3 H (3.8-10.6) k/uL RBC 3.58 L (3.80-5.40) m/uL Hgb 11.1 L (11.4-16.0) gm/dL Sodium 136 L (137-145) mmol/L Glucose 127 H (74-99) mg/dL Assessment and Plan Assessment: Recurrent large paraesophageal hernia. Status post Left thoracotomy, repair of paraesophageal hernia, Ernie-Norma procedure. Acute hypoxic respiratory failure postoperatively expected. Status post extubation. History of paraesophageal hernia repair in 2004 at [facility]. Hypotension improved with fluid bolus. Hypertension Hyperlipidemia GERD Previous history of smoking DVT prophylaxis. Plan: Patient is currently saturating well on nasal cannula oxygen.. Patient will be continued on IV hydration. DuoNeb's. Chest tubes removed. Pulmonary is on board. We will continue the current management. Encourage ambulation and incentive spirometry. Tolerating oral diet. Further recommendations based on the clinical course. Time with Patient: Greater than 30
[2019-01-27 06:33] LABS: HGB 11.5 gm/dL (11.4-16.0); MCH 31.2 pg (25.0-35.0); MCHC 32.9 g/dL (31.0-37.0); MCV 94.8 fL (80.0-100.0); Mean Platelet Volume 8.9; Platelet Count 298 k/uL (150-450); RBC 3.69 m/uL (3.80-5.40); RDW 13.8 % (11.5-15.5); WBC 16.7 k/uL (3.8-10.6)
[2019-01-27] MEDS: traMADol 50 MG TAB PO PRN ×2 (06:42→11:41)
[2019-01-27 06:57] LABS: Calcium 8.8 mg/dL (8.4-10.2); Potassium 4.7 mmol/L (3.5-5.1)
[2019-01-27] MEDS: IPRATROPIUM-ALBUTEROL 3 ML NEB IH SCH ×4 (07:37→19:27)
--- NOTE | 2019-01-27 07:53 | P.PN ---
Subjective Progress Note Date: 01/27/19 Principal diagnosis: Recurrent paraesophageal hernia. History of paraesophageal hernia with laparoscopic repair in 2004 at [facility], coronary artery disease, hypertension, hyperlipidemia, previous tobacco dependence, medication-induced acute kidney injury, and GERD. POD #4 left thoracotomy, repair of paraesophageal hernia, Ernie-Norma procedure The patient is currently sitting up in a recliner in no acute distress. States pain is controlled on current medication regimen, denies shortness of breath. Epidural discontinued yesterday. Patient has been ambulatory in the hallway, tolerating oral diet without difficulty. Transfer orders were placed yesterday for the step-down unit however there is no bed availability. No new concerns. Objective - Vital Signs Vital signs: Vital Signs Temp 98.6 F 01/27/19 04:00 Pulse 71 01/27/19 07:38 Resp 18 01/27/19 07:00 BP 154/67 01/27/19 07:00 Pulse Ox 95 01/27/19 07:00 Intake & Output 01/26/19 01/27/19 01/27/19 18:59 06:59 18:59 Intake Total 494.417 300 Output Total 525 1300 Balance -30.583 -1000 Weight 88.2 kg Intake: Intake, IV Titration 244.417 Amount Dextrose 5%-0.45% NaCl 1, 160 000 ml @ 40 mls/hr IV . Q24H [facility] Rx#:[id number] Ropivacaine 400 mg 84.417 Hydromorphone (Pf) 5 mg In Sodium Chloride 0.9% 170 ml @ Per Protocol EPIDURAL .Q0M PRN Rx#: [id number] Oral 250 300 Output: Urine 525 1300 Other: Voiding Method Toilet Toilet Bedside Commode Bedside Commode ABP, PAP, CO, CI - Last Documented Arterial Blood Pressure 118/63 - Constitutional General appearance: Present: cooperative, no acute distress, obese - Respiratory Details: Lungs sounds diminished bilaterally. Respirations even, nonlabored. Currently on room air with oxygen saturation 94%. Able to achieve 750 mL on her incentive spirometry. - Cardiovascular Details: S1, S2 present. Regular rate and rhythm, sinus rhythm on telemetry. Palpable peripheral pulses bilaterally. No edema present. No calf pain or tenderness noted. SCDs present. - Gastrointestinal Gastrointestinal Comment(s): Abdomen soft, nontender, nondistended. Active bowel sounds present 4 quadrants. Tolerating diet. Positive flatus, negative bowel movement. - Genitourinary Genitourinary Comment(s): Continues to void clear yellow urine. - Integumentary Integumentary Comment(s): Skin is warm and dry with evidence of good perfusion. - Neurologic Neurologic: Present: CNII-XII intact - Musculoskeletal Musculoskeletal: Present: gait normal, strength equal bilaterally - Psychiatric Psychiatric: Present: A&O x's 3, appropriate affect, intact judgment & insight - Allied health notes Allied health notes reviewed: nursing - Labs CBC & Chem 7: 01/27/19 04:54 01/27/19 04:54 Labs: Abnormal Lab Results - Last 24 Hours (Table) 01/27/19 01/27/19 Range/Units 04:54 04:54 WBC 16.7 H (3.8-10.6) k/uL RBC 3.69 L (3.80-5.40) m/uL Glucose 112 H (74-99) mg/dL - Imaging and Cardiology Chest x-ray: image reviewed Assessment and Plan Assessment: 1. Recurrent paraesophageal hernia, status post left thoracotomy with repair of paraesophageal hernia, Ernie-Norma procedure 2. History of paraesophageal hernia status post laparoscopic repair in 2004 at [facility] 3. Coronary artery disease 4. Hypertension 5. Hyperlipidemia 6. Previous tobacco dependence 7. Medication-induced acute kidney injury 8. GERD Plan: 1. Continue current diet. 2. Dulcolax suppository daily until bowel movement. Stool softners added, home metamucil added. 3. Increase activity, ambulate in hallway as tolerated. 4. Encourage incentive spirometry use 10 times every hour while awake. 5. Pain control with current medication regimen. 6. GI/DVT prophylaxis. 7. Bronchodilators per pulmonology. 8. Transfer orders placed yesterday for 3 S. cardiac stepdown unit, may transfer when bed available. 9. Discharge planning in progress. Anticipate discharge to home today vs. tomorrow, once patient has bowel movement we will DC to home. 10. More recommendations to follow based on patient's clinical course Time with Patient: Greater than 30
[2019-01-27] MEDS: PANTOPRAZOLE 40 MG/10 ML VIAL IVP SCH (08:34)
[2019-01-27] MEDS: PSYLLIUM HUSK 100% 6 GM PACKET PO SCH (08:34)
[2019-01-27] MEDS: ASPIRIN 81 MG PO SCH (08:35)
[2019-01-27] MEDS: SENNOSIDES-DOCUSATE SODIUM 1 EACH TAB PO SCH ×2 (08:35→20:48)
[2019-01-27] MEDS: HEPARIN SODIUM,PORCINE 5,000 UNIT/ML 1 ML VIAL SQ SCH ×3 (08:35→22:58)
[2019-01-27] MEDS: BISACODYL 10 MG SUPP RECTAL SCH (08:35)
[2019-01-27] MEDS: METOPROLOL TARTRATE 50 MG TAB PO SCH ×2 (08:35→20:47)
[2019-01-27] MEDS: CITALOPRAM HYDROBROMIDE 20 MG TAB PO SCH (08:36)
[2019-01-27] MEDS: amLODIPine 2.5 MG TAB PO SCH (11:42)
--- NOTE | 2019-01-27 12:14 | XR ---
EXAMINATION TYPE: XR chest 2V DATE OF EXAM: 01/27/2019 COMPARISON: Prior chest x-ray 01/26/2019 HISTORY: Post thoracoscopy, abnormal chest x-ray TECHNIQUE: Frontal and lateral views of the chest are obtained. FINDINGS: 2 foci of linear increased density present at the level of the distal esophagus measuring a pproximately 10 and 15 mm x 1 mm. These are indeterminate. There is blunting the costophrenic angles. No evident pneumothorax. Heart is enlarged and the patient is rotated. Perihilar increased density p ersists. Question nodular density in the left midlung, possibly calcified granuloma. There are overly ing cardiac leads. IMPRESSION: Probable pleural effusions and associated atelectasis. Cardiomegaly. There may be some i mprovement in aeration. Possible foreign bodies, correlate for possible esophageal surgery.
[2019-01-27] MEDS ORDERED: MAGNESIUM HYDROXIDE 2,400 MG/10 ML CUP PO ONE (15:06)
--- NOTE | 2019-01-27 16:08 | P.PN ---
Subjective Progress Note Date: 01/27/19 This is a very pleasant 68-year-old female patient who follows with Dr. Turpin as her primary care physician. She has a history of hypertension, hyperlipidemia, recurrent paraesophageal hernia. Her previous surgery was done in 2004 at [facility]. Recent CAT scan of the abdomen and chest demon strates a large paraesophageal hernia with much of the stomach and pancreas present in the chest cavity. She was admitted today electively for a left thoracotomy, repair of the paraesophageal hernia, Ernie Norma procedure performed by Dr. Rodriguez this morning. She is seen today post recovery in the intensive care unit. He did have some issues with hypotension while in recovery room following a bolus for pain control and the epidural and a milligram of Dilaudid. She required 500 mL of fluid resuscitation. She's been initiated on D5.45 with 20 KCl at 100 ML's per hour. Urine output is marginal. Not requiring pressors at this point. Current pressure 95/46, temperature is 96.3 axillary, bradycardic in the 50s. She is maintaining O2 saturations in the 90s on 4 L/m per nasal cannula. Postop chest x-ray reveals trace bilateral pleural effusions and new bibasilar airspace disease likely related to post procedural atelectasis. 2 chest tubes remain in place when anteriorly one posteriorly. Each attached to Pleur-evacs. No significant drainage thus far. White count 27.1. Hemoglobin 12.0. She has been initiated on DuoNeb inhalations,. Ropivacaine/hydromorphone pain pump in place. She is currently comfortable in no acute distress. On 01/24/2019 patient seen in follow-up in intensive care unit. This is postoperative day 1, status post thoracotomy, paraesophageal hernia repair, Ernie-Norma procedure. She is currently on 3 L of oxygen, the pulse ox of 94%, afebrile, hemodynamically stable, IV D5 0.45 at a rate of 100 ML per hour. No other drips, epidural ropivacaine and Dilaudid infusing at a rate of 2 ML per hour. Incentive spirometry effort is suboptimal, about 500 on today's exam. Lung sounds are diminished, with scattered rhonchi, patient does have scattered rhonchi. 2 left sided chest tubes, 300 mL of servicing this output from the posterior chest tube, and 450 from the anterior chest tube. Patient more awake today, she states her pain is well controlled. chest x-ray has been reviewed showing minimal apical pneumothoraces, probable atelectasis, perihilar edema. His labs have been reviewed, showing with blood cell count of 18.1, hemoglobin of 11.8, serum sodium is 136, potassium is 5.4, BUN of 29, creatinine is 1.85. Urine output in the order of 15-35 ML per hour. Patient has been given 500 mL of 5% albumin last night. On 01/26/2019 patient seen in follow-up in the intensive care unit, this is postop day 3, status post thoracotomy, paraesophageal hernia repair, Ernie- Norma procedure. Currently on 2 L of oxygen with a pulse ox of 95%, she is afebrile, hemodynamically patient is stable, IV D5 0.45 at a rate of 40 ML per hour, epidural with bupivacaine and Dilaudid infusing at 4 ML per hour. This is anticipated to be discontinued today, she states her pain is reasonably controlled, chest tubes have been discontinued yesterday, left posterior lateral chest tube sites and incision is clean dry and intact, covered with dressing. Sounds positive for basilar crackles, left greater than the right, IS is suboptimal, patient is only 750 on it today. Today's labs have been reviewed showing white blood cell count of 17.3, hemoglobin of 11.1, serum sodium is 136, the rest of the electrolytes and renal profile are within normal limits. Today's chest x-ray has been reviewed, showing resolution of the patient's left- sided pneumothorax, mild cardiomegaly, bibasilar airspace disease, and small bilateral pleural effusions. NG-tube has been discontinued patient had passed her swallow evaluation, and is tolerating oral intake On 01/27/2019 the patient is being seen in follow-up in the intensive care unit. The patient is postop day #4. The patient underwent a thoracotomy and paraesophageal hernia repair. The patient is currently on room air oxygen. She is doing extremely well. Chest x-ray from today shows some atelectatic changes in lung bases otherwise clear. The epidural catheter was removed and the patient has no significant pain issues for now. The patient using incentive spirometer without any major difficulties. The patient has a hemoglobin of 11.5. A blood work and electrodes are all within normal limits. Hemodynamically stable and she is taking Ultram 4 times a day for pain control in addition to Tylenol. The surgical wound site over the left chest area is dry clean and intact. There is no evidence of any drainage or cellulitis. Hemodynamically stable. Tolerating diet. She be moved out of the intensive care unit today. Objective - Vital Signs Vital signs: Vital Signs Temp 98.3 F 01/27/19 12:00 Pulse 72 01/27/19 15:56 Resp 26 H 01/27/19 12:00 BP 146/74 01/27/19 12:00 Pulse Ox 89 L 01/27/19 14:00 Intake & Output 01/26/19 01/27/19 01/27/19 18:59 06:59 18:59 Intake Total 494.417 300 0 Output Total 525 1300 Balance -30.583 -1000 0 Weight 88.2 kg Intake: Intake, IV Titration 244.417 0 Amount Dextrose 5%-0.45% NaCl 1, 160 0 000 ml @ 40 mls/hr IV . Q24H [facility] Rx#:[id number] Ropivacaine 400 mg 84.417 Hydromorphone (Pf) 5 mg In Sodium Chloride 0.9% 170 ml @ Per Protocol EPIDURAL .Q0M PRN Rx#: [id number] Oral 250 300 Output: Urine 525 1300 Other: Voiding Method Toilet Toilet Toilet Bedside Commode Bedside Commode Bedside Commode # Voids 1 ABP, PAP, CO, CI - Last Documented Arterial Blood Pressure 118/63 - Exam GENERAL EXAM: Alert, pleasant, 68-year-old white female, currently on room air HEAD: Normocephalic/atraumatic. EYES: Normal reaction of pupils, equal size. Conjunctiva pink, sclera white. NOSE: Clear with pink turbinates. NG-tube is in place, to low intermittent suction THROAT: No erythema or exudates. NECK: No masses, no JVD, no thyroid enlargement, no adenopathy. CHEST: No chest wall deformity. Symmetrical expansion. The chest tube has been removed. Surgical wound site over the left chest areas dry clean and intact. Epidural catheter is also been removed. LUNGS: Equal air entry with rales, at the bases, left greater than the right she has a weak congested cough, not productive CVS: Regular rate and rhythm, normal S1 and S2, no gallops, no murmurs, no rubs ABDOMEN: Soft, nontender. No hepatosplenomegaly, normal bowel sounds, no guarding or rigidity. EXTREMITIES: No clubbing, no edema, no cyanosis, 2+ pulses and upper and lower extremities. MUSCULOSKELETAL: Muscle strength and tone normal. SPINE: No scoliosis or deformity SKIN: No rashes CENTRAL NERVOUS SYSTEM: Alert and oriented -3. No focal deficits, tone is normal in all 4 extremities. PSYCHIATRIC: Alert and oriented -3. Appropriate affect. Intact judgment and insight. - Labs CBC & Chem 7: 01/27/19 04:54 01/27/19 04:54 Labs: Abnormal Lab Results - Last 24 Hours (Table) 01/27/19 01/27/19 Range/Units 04:54 04:54 WBC 16.7 H (3.8-10.6) k/uL RBC 3.69 L (3.80-5.40) m/uL Glucose 112 H (74-99) mg/dL Assessment and Plan Plan: #1 Recurrent large paraesophageal hernia status post left thoracotomy, repair of paraesophageal hernia, Ernie-Norma procedure. Postoperative day day #4. The patient is doing extremely well. All of the chest tubes have been removed and the surgical wound site is clean and the chest x-ray showing some limited atelectatic changes in lung bases. Otherwise the patient is doing well. She is tolerating diet. No bowel movements yet. #2 Large paraesophageal hernia initially repaired in [facility] in 2004. #3 Acute hypoxic respiratory failure with basilar atelectasis secondary to above, expected outcome of surgery. The patient is currently has the chest tubes have been removed. #4 Hypertension, history of. #5 Hyperlipidemia. #6 acute kidney injury likely related to ATN the patient's renal function is normalized and the creatinine is down to 1.04. Plan Awaiting a bowel movement. Increased level of activity. Continue incentive spirometer. Outpatient medication been ordered resume. Adequate pain control. Transfer out of the intensive care unit.
--- NOTE | 2019-01-27 17:23 | P.PN ---
Subjective 68-year-old female seen in the ICU for medical management. She status post left thoracotomy and repair of the paraesophageal hernia. She had chest tubes in the left side of the chest which were taken out. Patient was initially intubated and sedated and is extubated. On 01/27/2019 Patient says that she's feeling better. She is having soreness in the left side of the chest when she takes deep breath. She otherwise complaining of no chest pain, her shortness of breath is better .No abdominal pain, she is passing gases but no bowel movement yet no nausea and vomiting. Objective - Vital Signs Vital signs: Vital Signs Temp 98.3 F 01/27/19 12:00 Pulse 72 01/27/19 15:56 Resp 26 H 01/27/19 12:00 BP 146/74 01/27/19 12:00 Pulse Ox 89 L 01/27/19 14:00 Intake & Output 01/26/19 01/27/19 01/27/19 18:59 06:59 18:59 Intake Total 494.417 300 0 Output Total 525 1300 Balance -30.583 -1000 0 Weight 88.2 kg Intake: Intake, IV Titration 244.417 0 Amount Dextrose 5%-0.45% NaCl 1, 160 0 000 ml @ 40 mls/hr IV . Q24H [facility] Rx#:[id number] Ropivacaine 400 mg 84.417 Hydromorphone (Pf) 5 mg In Sodium Chloride 0.9% 170 ml @ Per Protocol EPIDURAL .Q0M PRN Rx#: [id number] Oral 250 300 Output: Urine 525 1300 Other: Voiding Method Toilet Toilet Toilet Bedside Commode Bedside Commode Bedside Commode # Voids 1 ABP, PAP, CO, CI - Last Documented Arterial Blood Pressure 118/63 - Exam On exam, alert and oriented x3. HEENT: Conjunctivae normal. eyes normal. NECK: No JVD. No thyroid enlargement. No LNs CARDIOVASCULAR: S1, S2 muffled. No murmur RESPIRATION: Breath sounds diminished in the bases. No rhonchi or crackles. No bronchial breathing.patient has dressing applied in the left side of the chest status post removal of the chest tubes. ABDOMEN: Soft, nontender . No guarding. no masses palpable. No ascites, No hepatosplenomegaly.Bowel sounds heard. LEGS: No edema. no swelling NERVOUS SYSTEM: Cranial N 2-12 grossly normal. Moves all 4 limbs. No focal deficits. No sensory deficit. No signs of cerebellar dysfucntion. Skin: no ulcer no rash - Labs CBC & Chem 7: 01/27/19 04:54 01/27/19 04:54 Labs: Abnormal Lab Results - Last 24 Hours (Table) 01/27/19 01/27/19 Range/Units 04:54 04:54 WBC 16.7 H (3.8-10.6) k/uL RBC 3.69 L (3.80-5.40) m/uL Glucose 112 H (74-99) mg/dL Assessment and Plan Assessment: Recurrent large paraesophageal hernia. Status post Left thoracotomy, repair of paraesophageal hernia, Ernie-Norma procedure. Acute hypoxic respiratory failure postoperatively expected. Status post extubation. History of paraesophageal hernia repair in 2004 at [facility]. Hypotension improved with fluid bolus. Hypertension Hyperlipidemia GERD Previous history of smoking plan - Patient said that she's feeling better. - Pulmonology on board. - Continue current management - Patient is on bowel regimen as she's not having a bowel movement yet - The plan is to DC once she has a bowel movement.
[2019-01-27] MEDS: ATORVASTATIN 40 MG TAB PO SCH (20:48)
[2019-01-28] MEDS: traMADol 50 MG TAB PO PRN (04:20)
[2019-01-28] MEDS: IPRATROPIUM-ALBUTEROL 3 ML NEB IH SCH ×2 (07:30→11:11)
[2019-01-28 08:05] LABS: HCT 34.5 % (34.0-46.0); HGB 11.2 gm/dL (11.4-16.0); MCH 30.8 pg (25.0-35.0); MCHC 32.5 g/dL (31.0-37.0); MCV 94.8 fL (80.0-100.0); Mean Platelet Volume 7.7; Platelet Count 327 k/uL (150-450); RBC 3.64 m/uL (3.80-5.40); RDW 13.2 % (11.5-15.5); WBC 17.1 k/uL (3.8-10.6)
[2019-01-28 08:34] LABS: Calcium 8.6 mg/dL (8.4-10.2); Potassium 4.5 mmol/L (3.5-5.1)
--- NOTE | 2019-01-28 08:35 | P.DS ---
Providers Date of admission: 01/23/19 06:14 Expected date of discharge: 01/28/19 Attending physician: Philip Rodriguez Consults: 01/23/19 11:10 Consult Physician Routine Consulting Provider: Keyon Rainey Consult Reason/Comments: Medical Management Do you want consulting provider notified?: Yes 01/23/19 12:26 Consult Physician Routine Consulting Provider: Damien Lowry Reason/Comments: ICU/ Pulmonary Management Do you want consulting provider notified?: Already Contacted Placement Type Exists?: Yes Primary care physician: Miranda Turpin Hospital Course: FINAL DIAGNOSIS: 1. Recurrent paraesophageal hernia 2. History of paraesophageal hernia with laparoscopic repair in 2004 at [facility] 3. Coronary artery disease 4. Hypertension 5. Hyperlipidemia 6. Previous tobacco dependence 7. History of medication-induced acute kidney injury 8. GERD PRINCIPAL PROCEDURE: 1. Left thoracotomy, repair of paraesophageal hernia, Ernie-Norma procedure HISTORY OF PRESENT ILLNESS: This is a 68 year old female patient who follows with Dr. Miranda Turpin on an outpatient basis. She had a laprascopic paraesophageal hernia repair in 2004 at [facility]. Within the last year she reported having difficulty eating and postprandial satiety as well as marked dyspnea on exertion. She was scheduled to have a robotic repair with general surgery, however on the day of surgery she was discovered to have acute kidney injury and hyperkalemia so surgery was cancelled. A CT scan of the chest was completed revealing recurrent large paraesophageal hernia with much of the stomach and pancreas present in the chest cavity. Due to the extensive nature of her recurrent hernia, she was referred to Dr. Rodriguez from cardiothoracic surgery. She was recommended to undergo repair of paraesophageal hernia with a left thoracotomy approach. The usual perioperative course was discussed in detail with the patient and her family, all risks and benefits were explained, all questions were answered, and consent was obtained to proceed with surgery. We obtained cardiac and pulmonary clearance and scheduled the patient for surgery at the earliest possible date available, however the patient got scared and cancelled surgery. Subsequently, she became ready to have surgery, and she was re-scheduled at the earliest date convenient to her. HOSPITAL COURSE: The patient was brought to the hospital on 01/23/2019, taken to the preoperative area, prepared in the usual fashion, and subsequently taken to the operating room where Dr. Rodriguez performed left thoracotomy, repair of paraesophageal hernia, Ernie-Norma procedure. Upon completion of surgery the patient was extubated and taken to the recovery room. She was eventually admitted to the intensive care unit where she continued to be recovered and monitored hemodynamically. Her nasogastric tube was discontinued when appropriate, her diet was advanced as tolerated, and she was ambulating in the hallway. Her recovery continued uneventfullly, and transfer orders were placed for 3 S. cardiac stepdown unit, however there was no bed availability and the patient remained on ICU as a stepdown patient until discharge. Her oxygen was titrated down, she continued to work with physical and occupational therapy, she continued to tolerate oral diet, her pain was controlled, and she was ready to be discharged to home with home care on postoperative day #5. She received written and verbal instruction regarding her medications, activity restrictions, signs and symptoms requiring physician notification, and follow-up appointments. COMPLICATIONS: The patient experienced no postoperative complications. Patient Condition at Discharge: Stable Plan - Discharge Summary Discharge Rx Participant: Yes New Discharge Prescriptions: Continue Metoprolol Tartrate 50 mg PO BID Aspirin [Adult Low Dose Aspirin EC] 81 mg PO DAILY Atorvastatin [Lipitor] 40 mg PO DAILY amLODIPine [Norvasc] 2.5 mg PO DAILY #30 tablet Citalopram Hydrobromide [CeleXA] 20 mg PO QAM Psyllium Husk 100% [Metamucil Packet] 6 gm PO DAILY Acetaminophen Tab [Tylenol] 500 - 1,000 mg PO Q6H PRN PRN Reason: Pain Discharge Medication List Metoprolol Tartrate 50 mg PO BID 02/26/17 [History] Aspirin [Adult Low Dose Aspirin EC] 81 mg PO DAILY 02/18/18 [History] Atorvastatin [Lipitor] 40 mg PO DAILY 06/06/18 [History] amLODIPine [Norvasc] 2.5 mg PO DAILY #30 tablet 06/15/18 [Rx] Acetaminophen Tab [Tylenol] 500 - 1,000 mg PO Q6H PRN 01/17/19 [History] Citalopram Hydrobromide [CeleXA] 20 mg PO QAM 01/17/19 [History] Psyllium Husk 100% [Metamucil Packet] 6 gm PO DAILY 01/17/19 [History] Follow up Appointment(s)/Referral(s): Philip Rodriguez MD [STAFF PHYSICIAN] - 02/13/19 1:00 pm [facility], [NON-STAFF] - 1-2 Days Miranda Turpin MD [Primary Care Provider] - As Needed Activity/Diet/Wound Care/Special Instructions: DISCHARGE INSTRUCTIONS: 1. No driving for 2 weeks, or until physician gives their ok. 2. No lifting, pushing, or pulling more than 10 pounds for 2 weeks. The physician will advise of any restriction changes. 3. Continue pain control per as needed orders. Alternate acetaminophen (Tylenol) and ibuprofen (Motrin/Advil) for pain. 4. Continue with incentive spirometry and splinting until otherwise directed by the physician. 5. Shower daily. 6. Routine incision care. No powders, lotions, ointments on incisions. 7. Please call surgeon/[employer]ST[employer]INEER for temp greater than 101 F or purulent drainage from incisions. Discharge Disposition: HOME WITH HOME HEALTH SERVICES
[2019-01-28] MEDS: HEPARIN SODIUM,PORCINE 5,000 UNIT/ML 1 ML VIAL SQ SCH (08:45)
[2019-01-28] MEDS: PSYLLIUM HUSK 100% 6 GM PACKET PO SCH (08:45)
[2019-01-28] MEDS: METOPROLOL TARTRATE 50 MG TAB PO SCH (08:45)
[2019-01-28] MEDS: SENNOSIDES-DOCUSATE SODIUM 1 EACH TAB PO SCH (08:46)
[2019-01-28] MEDS: ASPIRIN 81 MG PO SCH (08:46)
[2019-01-28] MEDS: CITALOPRAM HYDROBROMIDE 20 MG TAB PO SCH (08:46)
[2019-01-28 08:54] VITALS: RESP 20
[2019-01-28] MEDS ORDERED: PANTOPRAZOLE 40 MG TABLET PO SCH (09:00)
[2019-01-28 11:20] VITALS: BP 187/85; PULSE 69; TEMP 98.7
[2019-01-28] MEDS: BISACODYL 10 MG SUPP RECTAL SCH (11:50)
[2019-01-28] MEDS: amLODIPine 2.5 MG TAB PO SCH (11:57)
--- NOTE | 2019-01-28 15:55 | P.PN ---
Subjective Progress Note Date: 01/28/19 Principal diagnosis: Recurrent paraesophageal hernia This is a very pleasant 68-year-old female patient who follows with Dr. Turpin as her primary care physician. She has a history of hypertension, hyperlipidemia, recurrent paraesophageal hernia. Her previous surgery was done in 2004 at [facility]. Recent CAT scan of the abdomen and chest demonstrates a large paraesophageal hernia with much of the stomach and pancreas present in the chest cavity. She was admitted today electively for a left thoracotomy, repair of the paraesophageal hernia, Ernie Norma procedure performed by Dr. Rodriguez this morning. She is seen today post recovery in the intensive care unit. He did have some issues with hypotension while in recovery room following a bolus for pain control and the epidural and a milligram of Dilaudid. She required 500 mL of fluid resuscitation. She's been initiated on D5.45 with 20 KCl at 100 ML's per hour. Urine output is marginal. Not requiring pressors at this point. Current pressure 95/46, temperature is 96.3 axillary, bradycardic in the 50s. She is maintaining O2 saturations in the 90s on 4 L/m per nasal cannula. Postop chest x-ray reveals trace bilateral pleural effusions and new bibasilar airspace disease likely related to post procedural atelectasis. 2 chest tubes remain in place when anteriorly one posteriorly. Each attached to Pleur-evacs. No significant drainage thus far. White count 27.1. Hemoglobin 12.0. She has been initiated on DuoNeb inhalations,. Ropivacaine/hydromorphone pain pump in place. She is currently comfortable in no acute distress. On 01/24/2019 patient seen in follow-up in intensive care unit. This is postoperative day 1, status post thoracotomy, paraesophageal hernia repair, Ernie-Norma procedure. She is currently on 3 L of oxygen, the pulse ox of 94%, afebrile, hemodynamically stable, IV D5 0.45 at a rate of 100 ML per hour. No other drips, epidural ropivacaine and Dilaudid infusing at a rate of 2 ML per hour. Incentive spirometry effort is suboptimal, about 500 on today's exam. Lung sounds are diminished, with scattered rhonchi, patient does have scattered rhonchi. 2 left sided chest tubes, 300 mL of servicing this output from the posterior chest tube, and 450 from the anterior chest tube. Patient more awake today, she states her pain is well controlled. chest x-ray has been reviewed showing minimal apical pneumothoraces, probable atelectasis, perihilar edema. His labs have been reviewed, showing with blood cell count of 18.1, hemoglobin of 11.8, serum sodium is 136, potassium is 5.4, BUN of 29, creatinine is 1.85. Urine output in the order of 15-35 ML per hour. Patient has been given 500 mL of 5% albumin last night. On 01/26/2019 patient seen in follow-up in the intensive care unit, this is postop day 3, status post thoracotomy, paraesophageal hernia repair, Ernie- Norma procedure. Currently on 2 L of oxygen with a pulse ox of 95%, she is afebrile, hemodynamically patient is stable, IV D5 0.45 at a rate of 40 ML per hour, epidural with bupivacaine and Dilaudid infusing at 4 ML per hour. This is anticipated to be discontinued today, she states her pain is reasonably controlled, chest tubes have been discontinued yesterday, left posterior lateral chest tube sites and incision is clean dry and intact, covered with dressing. Sounds positive for basilar crackles, left greater than the right, IS is suboptimal, patient is only 750 on it today. Today's labs have been reviewed showing white blood cell count of 17.3, hemoglobin of 11.1, serum sodium is 136, the rest of the electrolytes and renal profile are within normal limits. Today's chest x-ray has been reviewed, showing resolution of the patient's left- sided pneumothorax, mild cardiomegaly, bibasilar airspace disease, and small bilateral pleural effusions. NG-tube has been discontinued patient had passed her swallow evaluation, and is tolerating oral intake. On 01/28/2019 patient seen in follow-up on selective care unit, she is doing very well, no specific complaints, patient had a bowel movement, no difficulty breathing, no chest pain, she is on room air, with a pulse ox of 94%, afebrile, respirations are even and nonlabored, a few scattered rhonchi, over left lower base, good air entry noted bilaterally, all chest tubes have been discontinued. Patient is working on incentive spirometer, able to achieve 1000 ML on the today. No new chest x-rays today. Labs have been reviewed, showing white blood cell count of 17.1, hemoglobin of 11.2, serum sodium is 137, potassium is 4.5, chloride is 99, CO2 is 31, BUN of 17, creatinine of 0.99. She is being discharged home today. Objective - Vital Signs Vital signs: Vital Signs Temp 98.7 F 01/28/19 11:19 Pulse 69 01/28/19 11:19 Resp 20 01/28/19 11:19 BP 187/85 01/28/19 11:19 Pulse Ox 94 L 01/28/19 11:19 Intake & Output 01/27/19 01/28/19 01/28/19 18:59 06:59 18:59 Intake Total 0 720 Output Total 100 Balance -100 720 Weight 92.5 kg Intake: Intake, IV Titration 0 Amount Dextrose 5%-0.45% NaCl 1, 0 000 ml @ 40 mls/hr IV . Q24H JONNY Rx#:[id number] Oral 720 Output: Urine 100 Other: Voiding Method Toilet Toilet Bedside Commode Bedside Commode # Voids 1 1 2 # Bowel Movements 1 ABP, PAP, CO, CI - Last Documented Arterial Blood Pressure 118/63 - Exam GENERAL EXAM: Alert, pleasant, 68-year-old white female, 2 L of oxygen, with a pulse ox of 94% comfortable in no apparent distress. HEAD: Normocephalic/atraumatic. EYES: Normal reaction of pupils, equal size. Conjunctiva pink, sclera white. NOSE: Clear with pink turbinates. NG-tube is in place, to low intermittent suction THROAT: No erythema or exudates. NECK: No masses, no JVD, no thyroid enlargement, no adenopathy. CHEST: No chest wall deformity. Symmetrical expansion. Interval removal of 2 left-sided chest tubes, posterior chest incision is clean dry and intact, chest tube site is clean dry and intact, covered with dressings. Epidural catheter and posterior chest, with Ropivacaine and Dilaudid infusing at 4 ML per hour LUNGS: Equal air entry with limited rhonchi at the left lower base, good air entry noted bilaterally CVS: Regular rate and rhythm, normal S1 and S2, no gallops, no murmurs, no rubs ABDOMEN: Soft, nontender. No hepatosplenomegaly, normal bowel sounds, no guarding or rigidity. EXTREMITIES: No clubbing, no edema, no cyanosis, 2+ pulses and upper and lower extremities. MUSCULOSKELETAL: Muscle strength and tone normal. SPINE: No scoliosis or deformity SKIN: No rashes CENTRAL NERVOUS SYSTEM: Alert and oriented -3. No focal deficits, tone is normal in all 4 extremities. PSYCHIATRIC: Alert and oriented -3. Appropriate affect. Intact judgment and insight. - Labs CBC & Chem 7: 01/28/19 06:58 01/28/19 06:58 Labs: Abnormal Lab Results - Last 24 Hours (Table) 01/28/19 01/28/19 Range/Units 06:58 06:58 WBC 17.1 H (3.8-10.6) k/uL RBC 3.64 L (3.80-5.40) m/uL Hgb 11.2 L (11.4-16.0) gm/dL Carbon Dioxide 31 H (22-30) mmol/L Glucose 106 H (74-99) mg/dL Assessment and Plan Plan: Assessment: #1 Recurrent large paraesophageal hernia status post left thoracotomy, repair of paraesophageal hernia, Ernie-Norma procedure. Postoperative day #5 #2 Large paraesophageal hernia initially repaired in [facility] in 2004. #3 Acute hypoxic respiratory failure with basilar atelectasis secondary to above, expected outcome of surgery. [address] to the left. #4 Hypertension, history of. #5 Hyperlipidemia. #6 acute kidney injury likely related to ATN Plan: Patient is doing very well, vital signs are stable, tolerating ambulation, no acute events overnight, no specific complaints. Tolerating oral intake, no nausea vomiting or diarrhea, still has some mild difficulty swallowing, which is improving. She is being discharged home today. I performed a history & physical examination of the patient and discussed their management with my nurse practitioner, Lulu Enamorado. I reviewed the nurse practitioner's note and agree with the documented findings and plan of care. Lung sounds are positive for diffuse rhonchi throughout the lung leach. The findings and the impression was discussed with the patient. I attest to the documentation by the nurse practitioner. Time with Patient: Less than 30
== END 2019-01-28 12:57 | disposition home health service (06) | DRG 326 ==
LOC: 2ORMAIN 06:14 → 2SICU 10:56 → 3SCARD 01-27 21:36
PROVIDERS: ADMIT Thoracic Surgery (Cardiothoracic Vascular Surgery); ATTEND Thoracic Surgery (Cardiothoracic Vascular Surgery)
PROC: 0DX Gastrointestinal System, Transfer (ICD-10-PCS; principal; 2019-01-23 07:30)
PROC: 0DV40ZZ Restriction of Esophagogastric Junction, Open Approach (ICD-10-PCS; principal; 2019-01-23 07:30)
PROC: 0BQT0ZZ Repair Diaphragm, Open Approach (ICD-10-PCS; principal; 2019-01-23 07:30)
DX: K44.9 Diaphragmatic hernia without obstruction or gangrene (principal); J96.01 Acute respiratory failure with hypoxia; N17.0 Acute kidney failure with tubular necrosis; J98.11 Atelectasis; D72.829 Elevated white blood cell count, unspecified; E78.5 Hyperlipidemia, unspecified; I10 Essential (primary) hypertension; I25.10 Atherosclerotic heart disease of native coronary artery without angina pectoris; K21.9 Gastro-esophageal reflux disease without esophagitis; Z79.82 Long term (current) use of aspirin; Z79.899 Other long term (current) drug therapy; Z87.891 Personal history of nicotine dependence; Z90.710 Acquired absence of both cervix and uterus; I95.9 Hypotension, unspecified
CPT/HCPCS: 71045; 71046; 80048; 83735; 85025; 85027; 86850; 86900; 86901; 88305; 94640

== ENCOUNTER 2019-01-30 14:52 | Inpatient (IN) | payer MEDICARE ==
--- NOTE | 2019-01-30 15:13 | ED ---
Nausea/Vomiting/Diarrhea HPI - General Chief complaint: Nausea/Vomiting/Diarrhea Stated complaint: NAUSEA, VOMITING, ABSCESS Time Seen by Provider: 01/30/19 14:55 Source: EMS, RN notes reviewed, old records reviewed Mode of arrival: EMS Limitations: no limitations - History of Present Illness Initial comments: This is a 68-year-old female the ER for evaluation. Presents today for evaluation regarding nausea vomiting and chest pain. Patient has recent history of surgery regarding the esophageal hernia. Patient has positive nausea no current vomiting. No known fevers. Again patient is accepted in transfer. In speaking with transferring physician patient was found to have postop seroma versus abscess MD complaint: nausea, vomiting -: days(s) Description of Vomiting: food contents, watery Associated Abdominal Pain: Yes Location: diffuse Severity: mild Severity scale (1-10): 3 Quality: aching Consistency: constant Improves with: eating Worsens with: none Associated Symptoms: loss of appetite, malaise, nausea/vomiting - Related Data Home Medications Medication Instructions Recorded Confirmed Metoprolol Tartrate 50 mg PO BID 02/26/17 01/30/19 Aspirin [Adult Low Dose Aspirin EC] 81 mg PO DAILY 02/18/18 01/30/19 Atorvastatin [Lipitor] 40 mg PO DAILY 06/06/18 01/30/19 Acetaminophen Tab [Tylenol] 500 - 1,000 mg PO Q6H PRN 01/17/19 01/30/19 Citalopram Hydrobromide [CeleXA] 20 mg PO QAM 01/17/19 01/30/19 Psyllium Husk 100% [Metamucil 6 gm PO DAILY 01/17/19 01/30/19 Packet] Previous Rx's Medication Instructions Recorded amLODIPine [Norvasc] 2.5 mg PO DAILY #30 tablet 06/15/18 Allergies Allergy/AdvReac Type Severity Reaction Status Date / Time morphine AdvReac Nausea & Verified 01/30/19 15:09 Vomiting Review of Systems ROS Statement: Those systems with pertinent positive or pertinent negative responses have been documented in the HPI. ROS Other: All systems not noted in ROS Statement are negative. Past Medical History Past Medical History: Coronary Artery Disease (CAD), Eye Disorder, GERD/Reflux, Hyperlipidemia, Hypertension, Renal Disease Additional Past Medical History / Comment(s): states current hiatal hernia,SOB with activity History of Any Multi-Drug Resistant Organisms: None Reported Past Surgical History: Appendectomy, Heart Catheterization, Hernia Repair, Hysterectomy Additional Past Surgical History / Comment(s): fibroid tumor removal, hiatal hernia, heart catheterization in January 2018 demonstrated a 50% stenosis to her PDA coronary artery, a 50% stenosis to her midportion of her circumflex coronary artery, and a 50% stenosis to her mid left anterior descending coronary artery. Past Anesthesia/Blood Transfusion Reactions: No Reported Reaction Additional Past Anesthesia/Blood Transfusion Reaction / Comment(s): no hx blood transfusion Past Psychological History: Anxiety, Depression Smoking Status: Former smoker - Past Family History Mother Family Medical History: Pulmonary Embolus Additional Family Medical History / Comment(s): Past away from a pulmonary embolus. Father History Unknown: Yes Family Medical History: No Reported History General Exam Limitations: no limitations General appearance: alert, in no apparent distress Head exam: Present: atraumatic, normocephalic, normal inspection Eye exam: Present: normal appearance, PERRL, EOMI. Absent: scleral icterus, conjunctival injection, periorbital swelling ENT exam: Present: normal exam, mucous membranes moist Neck exam: Present: normal inspection. Absent: tenderness, meningismus, lymphadenopathy Respiratory exam: Present: normal lung sounds bilaterally. Absent: respiratory distress, wheezes, rales, rhonchi, stridor Cardiovascular Exam: Present: regular rate, normal rhythm, normal heart sounds. Absent: systolic murmur, diastolic murmur, rubs, gallop, clicks GI/Abdominal exam: Present: soft, normal bowel sounds. Absent: distended, tenderness, guarding, rebound, rigid Extremities exam: Present: normal inspection, full ROM, normal capillary refill. Absent: tenderness, pedal edema, joint swelling, calf tenderness Back exam: Present: normal inspection Neurological exam: Present: alert, oriented X3, CN II-XII intact Psychiatric exam: Present: normal affect, normal mood Skin exam: Present: warm, dry, intact, normal color. Absent: rash Course Vital Signs 01/30/19 15:07 Temperature 99.5 F Pulse Rate 81 Respiratory 16 Rate Blood Pressure 136/97 O2 Sat by Pulse 97 Oximetry - Reevaluation(s) Reevaluation #1: 01/30/19 15:11 Medical record and transfer paperwork is reviewed Reevaluation #2: 01/30/19 15:11 symptoms are improved Medical Decision Making - Medical Decision Making 68 female the ER for evaluation. Patient presents for evaluation regarding postop abscess and infection, patient be admitted for IV antibiotics and cardiovascular thoracic surgery evaluation - EKG Data -: EKG Interpreted by Me (EKG shows sinus rhythm rate of 81, TX 126, QRS 70, QTc 436) - Radiology Data Radiology results: report reviewed (CT shows post abscess V seroma), image reviewed Disposition Clinical Impression: Dehydration, Nausea & vomiting Disposition: ADMITTED IP TO THIS HOSP Condition: Fair Is patient prescribed a controlled substance at d/c from ED?: No Referrals: Miranda Turpin MD [Primary Care Provider] - 1-2 days
[2019-01-30] MEDS ORDERED: ONDANSETRON 4 MG/2 ML VIAL IVP STA (16:54)
[2019-01-30] MEDS: HYDROmorphone 1 MG/ML 1 ML SYRINGE IVP PRN ×2 (17:33→22:27)
[2019-01-30] MEDS ORDERED: ACETAMINOPHEN TAB 325 MG TAB PO PRN (18:49)
[2019-01-30] MEDS ORDERED: NALOXONE 0.4 MG/ML 1 ML VIAL IV PRN (18:49)
[2019-01-30] MEDS ORDERED: MORPHINE SULFATE 2 MG/ML SYRINGE IV PRN (18:49)
[2019-01-30] MEDS ORDERED: FUROSEMIDE 10 MG/ML 4 ML VIAL IV STA (19:21)
--- NOTE | 2019-01-30 19:22 | P.HPIM ---
History of Present Illness H&P Date: 01/30/19 Chief Complaint: Nausea vomiting 68-year-old female with PMH of esophageal hernia post surgery 1 week prior to presentation, CAD, hypertension, hyperlipidemia presents the ED for inability to swallow and nausea and vomiting. Patient was initially seen at [facility]. CT of the abdomen and pelvis showed bilateral pleural effusion with the largest collection in the right lung. There is also abnormal increased attenuation of the cutaneous fat along the left side of the abdomen and pelvis that measured 10 x 5.5 cm it could be related to seroma. Patient was transferred to [facility] for further evaluation. As per ED, patient's imaging was evaluated by Dr. Sánchez, thought to be normal process of healing and no further surgical recommendations were made. Patient continues to complain of nausea and vomiting. Patient reports a sensation of food being stuck in her throat that has been ongoing for the past 6 months. She also complains of hoarse voice along with nausea and vomiting with dry heaves over the last 2 days. Patient denies any headache, lower extremity edema, fever or chills, cough, chest pain, shortness of breath, palpitations, changes in urination or bowel habits. Patient reports difficulty in eating solids more than liquids. Lab work was reviewed from [facility]. Troponin was 0.017, EKG showing normal sinus rhythm. Chest x-ray showed small bilateral pleural effusions. Patient had a leukocytosis of 18.1. Her hemoglobin was 12.4. Lactic acid was within normal limits. Correlation panel was negative. CMP showed a glucose of 137 and AST of 46. Amylase and lipase was within normal limits. Patient is admitted for intractable nausea and vomiting related to her esophageal hernia surgery. Review of Systems Pertinent positives and negatives as discussed in HPI, a complete review of systems was performed and all other systems are negative. Past Medical History Past Medical History: Coronary Artery Disease (CAD), Eye Disorder, GERD/Reflux, Hyperlipidemia, Hypertension, Renal Disease Additional Past Medical History / Comment(s): states current hiatal hernia,SOB with activity History of Any Multi-Drug Resistant Organisms: None Reported Past Surgical History: Appendectomy, Heart Catheterization, Hernia Repair, Hysterectomy Additional Past Surgical History / Comment(s): fibroid tumor removal, hiatal hernia, heart catheterization in January 2018 demonstrated a 50% stenosis to her PDA coronary artery, a 50% stenosis to her midportion of her circumflex coronary artery, and a 50% stenosis to her mid left anterior descending coronary artery. 01/23/2019 patient had a paraesophageal hernia repair. Past Anesthesia/Blood Transfusion Reactions: No Reported Reaction Additional Past Anesthesia/Blood Transfusion Reaction / Comment(s): no hx blood transfusion Past Psychological History: Anxiety, Depression Additional Psychological History / Comment(s): no current medication Smoking Status: Former smoker Past Alcohol Use History: None Reported Additional Past Alcohol Use History / Comment(s): smoked a few years as a teen Past Drug Use History: None Reported - Past Family History Mother Family Medical History: Pulmonary Embolus Additional Family Medical History / Comment(s): Past away from a pulmonary embolus. Father History Unknown: Yes Family Medical History: No Reported History Medications and Allergies Home Medications Medication Instructions Recorded Confirmed Type Metoprolol Tartrate 50 mg PO BID 02/26/17 01/30/19 History Aspirin [Adult Low Dose Aspirin EC] 81 mg PO DAILY 02/18/18 01/30/19 History Atorvastatin [Lipitor] 40 mg PO DAILY 06/06/18 01/30/19 History amLODIPine [Norvasc] 2.5 mg PO DAILY #30 tablet 06/15/18 01/30/19 Rx Acetaminophen Tab [Tylenol] 500 - 1,000 mg PO Q6H PRN 01/17/19 01/30/19 History Citalopram Hydrobromide [CeleXA] 20 mg PO QAM 01/17/19 01/30/19 History Psyllium Husk 100% [Metamucil 6 gm PO DAILY 01/17/19 01/30/19 History Packet] Allergies Allergy/AdvReac Type Severity Reaction Status Date / Time morphine AdvReac Nausea & Verified 01/30/19 15:09 Vomiting Physical Exam Vitals: Vital Signs Temp Pulse Pulse Resp BP BP Pulse Ox 01/30/19 17:22 97.9 F 99 20 183/81 96 01/30/19 17:13 88 18 167/89 97 01/30/19 15:07 99.5 F 81 16 136/97 97 Intake and Output 01/30/19 01/30/19 01/30/19 06:59 14:59 22:59 Intake Total 20 Balance 20 Intake: IV 20 .9 flush 20 Other: Weight 86.183 kg General: [non toxic], [no distress], [appears at stated age] Derm: [warm], [dry] Head: [atraumatic], [normocephalic], [symmetric] Eyes: [EOMI], [no lid lag], [anicteric sclera] Mouth: [no lip lesion], [mucus membranes moist] Cardiovascular: [S1S2 reg], [no murmur], [positive posterior tibial pulse bilateral], Lungs: [CTA bilateral], [no rhonchi, no rales] , [no accessory muscle use] Abdominal: [soft], [ nontender to palpation], [no guarding], [no appreciable organomegaly] Ext: [no gross muscle atrophy], [no edema], [no contractures] Neuro: [ CN II-XI grossly intact], [no focal neuro deficits] Psych: [Alert], [oriented], [appropriate affect] Thrombosis Risk Factor Assmnt - Choose All That Apply Any of the Below Risk Factors Present?: Yes Each Factor Represents 1 point: Obesity (BMI >25) Other Risk Factors: Yes Each Risk Factor Represents 2 Points: Age 61-74 years, Major surgery Other congenital or acquired thrombophilia - If yes, enter type in comment: No Thrombosis Risk Factor Assessment Total Risk Factor Score: 5 Thrombosis Risk Factor Assessment Level: High Risk Assessment and Plan Assessment: Assessment and Plan Nausea and vomiting likely postoperative complication for esophageal hernia Dysphagia Bilateral pleural effusion Hypertensive urgency CAD Plans: Start Zofran former grams IV every 6 hours as needed for nausea or vomiting. Tylenol or Dilaudid as needed for severe pain. Start Protonix 40 mg IV daily. Will consult Dr. Sánchez and follow his recommendations. States that this is going on for the past 6 months. Plans: We'll consult speech therapy for formal swallow evaluation As seen on CT abdomen and pelvis. Unknown if related to recent surgery. Plans: O2 per NC to maintain O2 saturation greater than 92%. One dose of Lasix today. Repeat chest x-ray in the morning. BP 183/81. Plans: Continue amlodipine and metoprolol. Insure adequate pain management. Monitor vitals, adjust medications as necessary. Plans: Restart aspirin and Lipitor. Patient names her daughter Rachelle decision-maker indicates that she can't make decisions for herself. Patient reiterates wanting to remain full code at this time. DVT prophylaxis: [Heparin] Discussed with: [Patient] Anticipated discharge: [Tomorrow] Anticipated discharge place: [Home] A total of [45] minutes was spent on the care of this complex patient more than 50% of the time was spent in counseling and care coordination.
[2019-01-30 20:13] LABS: Basophils # (A) 0.1 k/uL (0-0.2); Basophils % (A) 0 %; Eosinophils # (A) 0.1 k/uL (0-0.7); Eosinophils % (A) 0 %; HCT 34.4 % (34.0-46.0); HGB 11.5 gm/dL (11.4-16.0); Lymphocytes # (A) 2.3 k/uL (1.0-4.8); Lymphocytes % (A) 10 %; MCH 31.4 pg (25.0-35.0); MCHC 33.4 g/dL (31.0-37.0); MCV 94.1 fL (80.0-100.0); Mean Platelet Volume 7.9; Monocytes # (A) 1.4 k/uL (0-1.0); Monocytes % (A) 6 %; Neutrophils % (A) 82 %; Platelet Count 386 k/uL (150-450); RBC 3.66 m/uL (3.80-5.40); RDW 13.6 % (11.5-15.5); WBC 22.1 k/uL (3.8-10.6)
[2019-01-30] MEDS: HEPARIN SODIUM,PORCINE 5,000 UNIT/ML 1 ML VIAL SQ SCH (20:17)
[2019-01-30 20:18] LABS: Albumin 3.1 g/dL (3.5-5.0); Calcium 8.6 mg/dL (8.4-10.2); Potassium 4.2 mmol/L (3.5-5.1); Total Bilirubin 0.4 mg/dL (0.2-1.3); Total Protein 5.9 g/dL (6.3-8.2)
[2019-01-30] MEDS: METOPROLOL TARTRATE 50 MG TAB PO SCH (20:25)
[2019-01-31] MEDS: ONDANSETRON 4 MG/2 ML VIAL IVP PRN ×4 (05:40→23:43)
[2019-01-31] MEDS: HYDROmorphone 1 MG/ML 1 ML SYRINGE IVP PRN ×5 (05:41→22:33)
[2019-01-31 07:04] LABS: Basophils # (A) 0.1 k/uL (0-0.2); Basophils % (A) 0 %; Eosinophils # (A) 0.4 k/uL (0-0.7); Eosinophils % (A) 2 %; HCT 35.8 % (34.0-46.0); HGB 11.4 gm/dL (11.4-16.0); Lymphocytes # (A) 2.1 k/uL (1.0-4.8); Lymphocytes % (A) 11 %; MCH 29.8 pg (25.0-35.0); MCHC 31.7 g/dL (31.0-37.0); MCV 94.1 fL (80.0-100.0); Mean Platelet Volume 7.9; Monocytes # (A) 1.1 k/uL (0-1.0); Monocytes % (A) 6 %; Neutrophils # (A) 14.6 k/uL (1.3-7.7); Neutrophils % (A) 79 %; Platelet Count 412 k/uL (150-450); RBC 3.81 m/uL (3.80-5.40); RDW 13.6 % (11.5-15.5); WBC 18.5 k/uL (3.8-10.6)
[2019-01-31 07:16] LABS: Calcium 8.5 mg/dL (8.4-10.2); Potassium 3.7 mmol/L (3.5-5.1); Total Bilirubin 0.5 mg/dL (0.2-1.3)
--- NOTE | 2019-01-31 08:52 | XR ---
EXAMINATION TYPE: XR chest 2V DATE OF EXAM: 01/31/2019 COMPARISON: 01/27/2019 TECHNIQUE: PA and lateral views submitted. HISTORY: Shortness of breath FINDINGS: Bilateral pleural-parenchymal changes are stable. Heart size remains enlarged. No pneumothorax. Arthr opathy of the shoulders. Linear metallic densities are again noted on the lateral view. Hypertrophic and degenerative changes are noted. IMPRESSION: 1. Bilateral infiltrate and pleural effusion is stable. Correlate for pneumonia. Underlying CHF in th e differential diagnosis. Linear density seen on the lateral view again are indeterminant could be re lated to previous surgery. Correlate clinically to exclude foreign body.
--- NOTE | 2019-01-31 08:53 | P.GSCN ---
History of Present Illness Consult date: 01/31/19 Reason for Consult: Recent paraesophageal hernia repair, patient known to us Requesting physician: Alirio Hussein History of present illness: This is a 68-year-old female patient follows with Dr. Miranda Turpin on an outpatient basis. She had a laparoscopic paraesophageal hernia repair in 2004 at [facility]. Within the last year she reported having difficulty eating and postprandial satiety as well as marked dyspnea on exertion. She was scheduled to have a robotic repair with general surgery, however on the day of surgery she was discovered to have acute kidney injury and hyperkalemia so surge ry was canceled. A computed tomography scan of the chest was completed revealing recurrent large paraesophageal hernia with much of the stomach and pancreas present in the chest cavity. Due to the extensive nature of her recurrent hernia, she was referred to Dr. Rodriguez from cardiothoracic surgery. She was recommended to undergo repair of the paraesophageal hernia with a left thoracotomy approach. Ernie-Norma procedure was completed on 01/23/2019, her postoperative course was uneventful with the exception of complaints of difficulty swallowing foods and feeling like something was caught in her throat. She did express that this has been a way of life for her for several months. In addition, it was explained to her that this is part of the normal healing process. She was discharged to home with home care on postoperative day #5 with follow-up appointment scheduled to see Dr. Rodriguez in the office. Apparently over the last 24 hours the patient felt she was unable to keep anything down, has had persistent nausea, and questionable vomiting versus coughing up sputum. She denied any fevers, did have 1 episode of diarrhea. She presented to [facility], and Dr. Sánchez who was on-call for cardiothoracic surgery was contacted and requested a CT scan of the abdomen and pelvis. Per radiologist read the CT demonstrated bilateral pleural effusions, and abnormal increased attenuation of the cutaneous fat along the left side of the abdomen possibly seroma. No further surgical recommendations were made. Due to the patient's history, however, she was transferred to [facility] emergency room for further evaluation and treatment. Dr. Sánchez from cardiothoracic surgery was consulted to follow the case. Review of Systems Review of systems was completed was negative except as noted - Gastrointestinal Reports loss of appetite, Reports nausea, Reports vomiting Past Medical History Past Medical History: Coronary Artery Disease (CAD), Eye Disorder, GERD/Reflux, Hyperlipidemia, Hypertension, Renal Disease Additional Past Medical History / Comment(s): History of paraesophageal hernia History of Any Multi-Drug Resistant Organisms: None Reported Past Surgical History: Appendectomy, Heart Catheterization, Hernia Repair, Hysterectomy Additional Past Surgical History / Comment(s): fibroid tumor removal, hiatal hernia, heart catheterization in January 2018 demonstrated a 50% stenosis to her PDA coronary artery, a 50% stenosis to her midportion of her circumflex coronary artery, and a 50% stenosis to her mid left anterior descending coronary artery. 01/23/2019 patient had a paraesophageal hernia repair. Past Anesthesia/Blood Transfusion Reactions: No Reported Reaction Additional Past Anesthesia/Blood Transfusion Reaction / Comm: no hx blood transfusion Past Psychological History: Anxiety, Depression Additional Psychological History / Comment(s): no current medication Smoking Status: Former smoker Past Alcohol Use History: None Reported Additional Past Alcohol Use History / Comment(s): smoked a few years as a teen Past Drug Use History: None Reported - Past Family History Mother Family Medical History: Pulmonary Embolus Additional Family Medical History / Comment(s): Past away from a pulmonary embolus. Father History Unknown: Yes Family Medical History: No Reported History Medications and Allergies Home Medications Medication Instructions Recorded Confirmed Type Metoprolol Tartrate 50 mg PO BID 02/26/17 01/30/19 History Aspirin [Adult Low Dose Aspirin EC] 81 mg PO DAILY 02/18/18 01/30/19 History Atorvastatin [Lipitor] 40 mg PO DAILY 06/06/18 01/30/19 History amLODIPine [Norvasc] 2.5 mg PO DAILY #30 tablet 06/15/18 01/30/19 Rx Acetaminophen Tab [Tylenol] 500 - 1,000 mg PO Q6H PRN 01/17/19 01/30/19 History Citalopram Hydrobromide [CeleXA] 20 mg PO QAM 01/17/19 01/30/19 History Psyllium Husk 100% [Metamucil 6 gm PO DAILY 01/17/19 01/30/19 History Packet] Allergies Allergy/AdvReac Type Severity Reaction Status Date / Time morphine AdvReac Nausea & Verified 01/30/19 15:09 Vomiting Surgical - Exam Vital Signs Temp Pulse Resp BP Pulse Ox 99.5 F 81 16 136/97 97 01/30/19 15:07 01/30/19 15:07 01/30/19 15:07 01/30/19 15:07 01/30/19 15:07 - General well developed, well nourished, no distress, no pain - Eyes PERRL, normal ocular movement - ENT no hearing loss - Neck no masses, no bruits, trachea midline - Respiratory Lungs sounds clear but diminished in the bases bilaterally. Respirations even, nonlabored. Currently on 2 L nasal cannula with oxygen saturation 97%. - Cardiovascular S1, S2 present. Regular rate and rhythm, sinus rhythm on telemetry. Palpable peripheral pulses bilaterally. No edema present. No calf pain or tenderness noted. - Abdomen Abdomen: soft, non tender, bowel sounds - Genitourinary Deferred - Rectum Deferred - Integumentary Left lateral surgical incision well approximated without drainage no rash, no growths, no abnormal pigmentation - Neurologic normal coordination, normal sensation - Musculoskeletal normal posture - Psychiatric oriented to time, oriented to person, oriented to place, speech is normal, memory intact Results - Labs 01/31/19 06:38 01/31/19 06:38 Abnormal Lab Results - Last 24 Hours (Table) 01/30/19 01/30/19 01/31/19 Range/Units 19:27 19:27 06:38 WBC 22.1 H 18.5 H (3.8-10.6) k/uL RBC 3.66 L (3.80-5.40) m/uL Neutrophils # 18.0 H 14.6 H (1.3-7.7) k/uL Monocytes # 1.4 H 1.1 H (0-1.0) k/uL BUN 18 H (7-17) mg/dL Glucose 113 H (74-99) mg/dL AST 50 H (14-36) U/L Total Protein 5.9 L (6.3-8.2) g/dL Albumin 3.1 L (3.5-5.0) g/dL 01/31/19 Range/Units 06:38 WBC (3.8-10.6) k/uL RBC (3.80-5.40) m/uL Neutrophils # (1.3-7.7) k/uL Monocytes # (0-1.0) k/uL BUN 19 H (7-17) mg/dL Glucose 107 H (74-99) mg/dL AST 86 H (14-36) U/L Total Protein 6.0 L (6.3-8.2) g/dL Albumin 3.0 L (3.5-5.0) g/dL Diabetes panel 01/30/19 01/31/19 Range/Units 19:27 06:38 Sodium 137 138 (137-145) mmol/L Potassium 4.2 3.7 (3.5-5.1) mmol/L Chloride 103 100 (98-107) mmol/L Carbon Dioxide 26 29 (22-30) mmol/L BUN 18 H 19 H (7-17) mg/dL Creatinine 0.87 0.83 (0.52-1.04) mg/dL Glucose 113 H 107 H (74-99) mg/dL Calcium 8.6 8.5 (8.4-10.2) mg/dL AST 50 H 86 H (14-36) U/L ALT 33 49 (9-52) U/L Alkaline Phosphatase 88 76 (38-126) U/L Total Protein 5.9 L 6.0 L (6.3-8.2) g/dL Albumin 3.1 L 3.0 L (3.5-5.0) g/dL Calcium panel 01/30/19 01/31/19 Range/Units 19:27 06:38 Calcium 8.6 8.5 (8.4-10.2) mg/dL Albumin 3.1 L 3.0 L (3.5-5.0) g/dL Pituitary panel 01/30/19 01/31/19 Range/Units 19:27 06:38 Sodium 137 138 (137-145) mmol/L Potassium 4.2 3.7 (3.5-5.1) mmol/L Chloride 103 100 (98-107) mmol/L Carbon Dioxide 26 29 (22-30) mmol/L BUN 18 H 19 H (7-17) mg/dL Creatinine 0.87 0.83 (0.52-1.04) mg/dL Glucose 113 H 107 H (74-99) mg/dL Calcium 8.6 8.5 (8.4-10.2) mg/dL Adrenal panel 01/30/19 01/31/19 Range/Units 19:27 06:38 Sodium 137 138 (137-145) mmol/L Potassium 4.2 3.7 (3.5-5.1) mmol/L Chloride 103 100 (98-107) mmol/L Carbon Dioxide 26 29 (22-30) mmol/L BUN 18 H 19 H (7-17) mg/dL Creatinine 0.87 0.83 (0.52-1.04) mg/dL Glucose 113 H 107 H (74-99) mg/dL Calcium 8.6 8.5 (8.4-10.2) mg/dL Total Bilirubin 0.4 0.5 (0.2-1.3) mg/dL AST 50 H 86 H (14-36) U/L ALT 33 49 (9-52) U/L Alkaline Phosphatase 88 76 (38-126) U/L Total Protein 5.9 L 6.0 L (6.3-8.2) g/dL Albumin 3.1 L 3.0 L (3.5-5.0) g/dL - Imaging Chest x-ray: image reviewed CT scan - abdomen: image reviewed CT scan - pelvis: image reviewed EKG: image reviewed Additional studies: CT the abdomen and pelvis from outside facility was reviewed Assessment and Plan Assessment: 1. Nausea, vomiting, difficulty swallowing 2. Recurrent paraesophageal hernia, status post left thoracotomy with repair of paraesophageal hernia, Ernie-Norma procedure 3. History of paraesophageal hernia status post laparoscopic repair in 2004 at [facility] 4. History of coronary artery disease 5. Hypertension, admitted with hypertensive urgency 6. Hyperlipidemia 7. Previous tobacco dependence 8. History of medication-induced acute kidney injury 9. GERD Plan: The patient was seen and examined at the bedside. Chart/diagnostics were reviewed including CT of the abdomen and pelvis from [facility]. The case was discussed with Dr. Sánchez by the emergency room physicians and there is no recommendation for surgical intervention at this time. Patient will have a swallow evaluation completed per orders from primary care service. The patient does state she is feeling much better since receiving IV Dilaudid and IV antibiotics. Recommend weaning oxygen, increasing activity and ambulating in the hallway, encouraging coughing and deep breathing and incentive spirometry use. Medical management of other comorbid conditions per primary care service. Will continue to follow with you and make further recommendations based on patient's progress. When patient is discharged, she does have a follow-up appo intment set up to see Dr. Rodriguez. Thank you for this consult. We look forward to participating in the care of this patient. Time with Patient: Greater than 30
[2019-01-31] MEDS ORDERED: amLODIPine 2.5 MG TAB PO SCH (09:00)
[2019-01-31] MEDS: HEPARIN SODIUM,PORCINE 5,000 UNIT/ML 1 ML VIAL SQ SCH ×2 (09:22→20:31)
[2019-01-31] MEDS: PANTOPRAZOLE 40 MG/10 ML VIAL IVP SCH (09:22)
[2019-01-31] MEDS: ASPIRIN 81 MG PO SCH (09:26)
[2019-01-31] MEDS: PSYLLIUM HUSK 100% 6 GM PACKET PO SCH (09:27)
[2019-01-31] MEDS: CITALOPRAM HYDROBROMIDE 20 MG TAB PO SCH (09:27)
[2019-01-31] MEDS: ATORVASTATIN 40 MG TAB PO SCH (09:27)
[2019-01-31] MEDS: METOPROLOL TARTRATE 50 MG TAB PO SCH (09:27)
[2019-01-31] MEDS ORDERED: hydrALAZINE HCL 20 MG/ML 1 ML VIAL IVP PRN (11:15)
--- NOTE | 2019-01-31 12:11 | FL ---
EXAMINATION TYPE: FL barium swallow DATE OF EXAM: 01/31/2019 During swallow: CLINICAL HISTORY: Pt is post-op Ernie-Norma procedure for paraesophageal hernia repair 01/23/19. 1 min 50 sec FL TECHNIQUE: Limited esophagram is performed utilizing 20 oz of Omnipaque 350. FINDINGS: There is high-grade structure noted at the surgical site. Mild amount of trickle flow is no manuel to enter the stomach. There is no evidence for visible leak at this time. IMPRESSION: Grade obstruction the surgical site with a small amount of contrast noted flowing into th e stomach. Suspect postoperative edema.
[2019-01-31] MEDS: hydrALAZINE HCL 20 MG/ML 1 ML VIAL IVP PRN ×2 (12:12→15:56)
[2019-01-31] MEDS: METOPROLOL TARTRATE 5 MG/5 ML VIAL IVP SCH ×3 (12:12→23:49)
--- NOTE | 2019-01-31 13:48 | P.PN ---
Subjective Progress Note Date: 01/31/19 Principal diagnosis: Nausea and vomiting Patient was seen and examined. No acute events overnight. Patient reports continued or worsening nausea and dry heaving since yesterday. She denies any chest pain, shortness of breath or palpitations. No fever or chills. Objective - Vital Signs Vital signs: Vital Signs Temp 97.8 F 01/31/19 12:00 Pulse 75 01/31/19 12:00 Resp 18 01/31/19 12:00 BP 199/84 01/31/19 12:00 Pulse Ox 96 01/31/19 12:00 Intake & Output 01/30/19 01/31/19 01/31/19 18:59 06:59 18:59 Intake Total 20 Balance 20 Weight 86.183 kg 88.5 kg 88.5 kg Intake: IV 20 .9 flush 20 Other: Voiding Method Toilet # Voids 3 # Bowel Movements 0 - Exam General: [non toxic], [no distress], [appears at stated age] Derm: [warm], [dry] Head: [atraumatic], [normocephalic], [symmetric] Eyes: [EOMI], [no lid lag], [anicteric sclera] Mouth: [no lip lesion], [mucus membranes moist] Cardiovascular: [S1S2 reg], [no murmur], [positive posterior tibial pulse bilateral], Lungs: [CTA bilateral], [no rhonchi, no rales] , [no accessory muscle use] Abdominal: [soft], [ nontender to palpation], [no guarding], [no appreciable organomegaly] Ext: [no gross muscle atrophy], [no edema], [no contractures] Neuro: [ CN II-XI grossly intact], [no focal neuro deficits] Psych: [Alert], [oriented], [appropriate affect] - Labs CBC & Chem 7: 01/31/19 06:38 01/31/19 06:38 Labs: Abnormal Lab Results - Last 24 Hours (Table) 01/30/19 01/30/19 01/31/19 Range/Units 19:27 19:27 06:38 WBC 22.1 H 18.5 H (3.8-10.6) k/uL RBC 3.66 L (3.80-5.40) m/uL Neutrophils # 18.0 H 14.6 H (1.3-7.7) k/uL Monocytes # 1.4 H 1.1 H (0-1.0) k/uL BUN 18 H (7-17) mg/dL Glucose 113 H (74-99) mg/dL AST 50 H (14-36) U/L Total Protein 5.9 L (6.3-8.2) g/dL Albumin 3.1 L (3.5-5.0) g/dL 01/31/19 Range/Units 06:38 WBC (3.8-10.6) k/uL RBC (3.80-5.40) m/uL Neutrophils # (1.3-7.7) k/uL Monocytes # (0-1.0) k/uL BUN 19 H (7-17) mg/dL Glucose 107 H (74-99) mg/dL AST 86 H (14-36) U/L Total Protein 6.0 L (6.3-8.2) g/dL Albumin 3.0 L (3.5-5.0) g/dL Assessment and Plan Assessment: Assessment and Plan Nausea and vomiting likely postoperative complication for esophageal hernia Dysphagia Bilateral pleural effusion Community acquired pneumonia Hypertensive urgency CAD Plans: Start Zofran IV every 6 hours as needed for nausea or vomiting. Tylenol or Dilaudid as needed for severe pain. Start Protonix 40 mg IV daily. Discussed with JEWEL HOLE CORNERER Rosalinda, plans for endoscopy on Sunday to relieve high grade obstruction. States that this is going on for the past 6 months. Video swallow shows high- grade obstruction likely secondary to edema. Plans: Follow speech therapy recommendations on diet. As seen on CT abdomen and pelvis. Unknown if related to recent surgery. Repeat chest x-ray shows bilateral infiltrate and pleural effusion which is stable. Plans: O2 per NC to maintain O2 saturation greater than 92%. As seen on chest x-ray. Plans: Start Rocephin IV, azithromycin. Follow-up echocardiogram. BP 199/84. Plans: Continue amlodipine (increased from 2.5-10 mg) and metoprolol. Added metoprolol IV as needed for SBP greater than 200. Insure adequate pain management. Monitor vitals, adjust medications as necessary. Plans: Restart aspirin and Lipitor. Discussed with surgery, plans for endoscopy on Sunday. Patient is pending clinical improvement.
[2019-01-31] MEDS ORDERED: LIDOCAINE 1% INJ 10MG/ML (20 ML MDV) SQ ONE (13:51)
[2019-01-31] MEDS ORDERED: AZITHROMYCIN 500 MG TAB PO SCH (14:00)
[2019-01-31 14:24] LABS: Magnesium 1.7 mg/dL (1.6-2.3); Phosphorus 4.2 mg/dL (2.5-4.5)
--- NOTE | 2019-01-31 14:25 | IR ---
PICC LINE PLACEMENT: HISTORY: Infection requiring long-term antibiotic therapy PROCEDURE: Ultrasound and fluoroscopic guidance of PICC line placement. COMPLICATIONS: None ANESTHESIA: 1. 1% Lidocaine locally. FINDINGS/TECHNIQUE: The procedure was explained to the patient. The risks, complications, benefits and alternatives were discussed and any questions were answered. Informed consent was obtained. The patient was placed supine on the fluoroscopic table and prepped and draped in the usual sterile fash ion. Utilizing a 21 gauge needle and sonographic and fluoroscopic guidance, access in the left basi lic vein was achieved and there is placement of a 0.018 guidewire. The vein is patent. A 5-Fr sheat h was placed over the guidewire. The guidewire and dilator were removed and a 5-F. Double lumen PICC line was placed through the sheath with the tip at the level of the SVC. The sheath was removed, th e catheter was flushed and sutured into position. The patient was stable throughout the procedure an d remained stable upon discharge from the Department of Radiology. The vein puncture was patent under ultrasound. A webb scale image was obtained to document patency of the vein punctured. All elements of the maximal barrier technique were utilized. FLUOROSCOPY TIME: 3 minutes, one image submitted IMPRESSION: Successful PICC double lumen line placement under ultrasound and fluoroscopic guidance.
[2019-01-31] MEDS: INSULIN ASPART (NovoLOG) 100 UNIT/ML VIAL SQ SCH ×3 (14:33→23:43)
[2019-01-31] MEDS: D5-0.45% NACL WITH KCL 20MEQ/L 1,000 ML IV SCH (14:37)
[2019-01-31] MEDS: amLODIPine 10 MG TAB PO SCH (14:40)
[2019-01-31] MEDS ORDERED: MVI, ADULT NO.4 WITH VIT K 10 ML, TRACE (CONC-1ML/DOSE) 1 ML in AMINO ACID 5%-D15W+LYTE... IV SCH ×3 (15:00)
[2019-01-31] MEDS: MAGNESIUM SULFATE-D5W PMX 1 GM in DEXTROSE/WATER 1 100ML.BAG IVPB SCH ×2 (15:45→17:23)
[2019-01-31] MEDS: AZITHROMYCIN 500 MG in SODIUM CHLORIDE 0.9% 250 ML IVPB SCH (15:55)
[2019-01-31] MEDS: FAT EMULSION 20% 250 ML in EMPTY BAG 1 BAG IV SCH (17:22)
[2019-01-31 18:02] LABS: Glucose,Whole Blood 156 mg/dL (75-99)
[2019-01-31 21:03] LABS: Glucose,Whole Blood 129 mg/dL (75-99)
[2019-01-31 23:40] LABS: Glucose,Whole Blood 136 mg/dL (75-99)
[2019-02-01] MEDS: HYDROmorphone 1 MG/ML 1 ML SYRINGE IVP PRN ×6 (03:58→23:32)
[2019-02-01] MEDS: hydrALAZINE HCL 20 MG/ML 1 ML VIAL IVP PRN ×2 (04:00→11:38)
[2019-02-01 06:13] LABS: Glucose,Whole Blood 152 mg/dL (75-99)
[2019-02-01] MEDS: INSULIN ASPART (NovoLOG) 100 UNIT/ML VIAL SQ SCH ×4 (06:19→23:32)
[2019-02-01] MEDS: METOPROLOL TARTRATE 5 MG/5 ML VIAL IVP SCH (06:20)
[2019-02-01] MEDS: ONDANSETRON 4 MG/2 ML VIAL IVP PRN ×2 (06:23→17:14)
[2019-02-01 07:21] LABS: Ionized Calcium 4.6 mg/dL (4.5-5.3)
[2019-02-01 07:36] LABS: Calcium 8.9 mg/dL (8.4-10.2); Magnesium 2.3 mg/dL (1.6-2.3); Phosphorus 3.9 mg/dL (2.5-4.5); Potassium 4.2 mmol/L (3.5-5.1)
[2019-02-01] MEDS: PANTOPRAZOLE 40 MG/10 ML VIAL IVP SCH (08:08)
[2019-02-01] MEDS: HEPARIN SODIUM,PORCINE 5,000 UNIT/ML 1 ML VIAL SQ SCH ×2 (08:15→20:18)
[2019-02-01] MEDS: ATORVASTATIN 40 MG TAB PO SCH (08:25)
[2019-02-01] MEDS: CITALOPRAM HYDROBROMIDE 20 MG TAB PO SCH (08:25)
[2019-02-01] MEDS: amLODIPine 10 MG TAB PO SCH ×2 (08:25→16:41)
[2019-02-01] MEDS: PSYLLIUM HUSK 100% 6 GM PACKET PO SCH (08:25)
[2019-02-01] MEDS: ASPIRIN 81 MG PO SCH (08:25)
--- NOTE | 2019-02-01 09:43 | P.PN ---
Subjective Progress Note Date: 02/01/19 Principal diagnosis: Nausea, vomiting, dysphagia, history of recurrent esophageal hernia, status post left thoracotomy with repair of paraesophageal hernia, Ernie Joe procedure, remote history of esophageal hernia repair status post laparoscopic repair in 2004 at [facility], history of coronary artery disease, hypertension, hyperlipidemia, remote history of tobacco dependence, gastroesophageal reflux disease and medication induced acute kidney injury. The patient is laying in bed on the third floor cardiac stepdown unit. She is complaining of surgical type pain to her left thoracotomy incision and is also complaining of nausea and vomiting. Denies any complaints of shortness of breath. Her daughter is at her bedside, questions answered to the best of my ability. The patient reports that the pain medication and Zofran are giving her some relief with her symptoms. TPN is infusing per orders and she is nothing by mouth at this time. Oxygen saturations are 97% on 2 L nasal cannula. Remote telemetry showing normal sinus rhythm heart rate 70. She is achieving 1000 mL on her incentive spirometry. Objective - Vital Signs Vital signs: Vital Signs Temp 98.1 F 02/01/19 04:00 Pulse 71 02/01/19 04:00 Resp 18 02/01/19 04:00 BP 152/71 02/01/19 06:24 Pulse Ox 97 02/01/19 04:00 Intake & Output 01/31/19 02/01/19 02/01/19 18:59 06:59 18:59 Weight 88.5 kg 89.2 kg Other: Voiding Method Toilet # Bowel Movements 0 - Constitutional General appearance: Present: cooperative, no acute distress, obese - Respiratory Details: Lung sounds essentially clear to her bilateral upper lobes, diminished bilateral bases. Respirations are symmetrical and nonlabored. Oxygen saturation 97% on 2 L nasal cannula. Achieving 1000 mL on her incentive spirometry. - Cardiovascular Details: Regular rhythm and rate. S1 and S2 present, negative for S3, gallop or murmur. Remote telemetry showing normal sinus rhythm heart rate 70. No edema present. - Gastrointestinal Gastrointestinal Comment(s): Abdomen is soft, nontender and nondistended. Hypoactive bowel sounds to all 4 abdominal quadrants. Obese. No guarding or rigidity. No organomegaly. - Genitourinary Genitourinary Comment(s): Voiding clear yellow urine. - Integumentary Integumentary Comment(s): Skin is warm and dry. No clubbing or cyanosis is present. Left thoracotomy incision clean, dry and approximated. No drainage or redness at present. No rash, growths or abnormal pigmentation is present. - Neurologic Neurologic: Present: CNII-XII intact - Musculoskeletal Musculoskeletal: Present: gait normal, generalized weakness, strength equal bilaterally - Psychiatric Psychiatric: Present: A&O x's 3, appropriate affect, intact judgment & insight - Allied health notes Allied health notes reviewed: nursing - Labs CBC & Chem 7: 01/31/19 06:38 02/01/19 06:54 Labs: Abnormal Lab Results - Last 24 Hours (Table) 01/31/19 01/31/19 01/31/19 Range/Units 18:00 21:01 23:39 BUN (7-17) mg/dL Glucose (74-99) mg/dL POC Glucose (mg/dL) 156 H 129 H 136 H (75-99) mg/dL 02/01/19 02/01/19 Range/Units 06:12 06:54 BUN 22 H (7-17) mg/dL Glucose 121 H (74-99) mg/dL POC Glucose (mg/dL) 152 H (75-99) mg/dL Assessment and Plan Assessment: 1. Dysphagia, nausea and vomiting 2. Recurrent paraesophageal hernia, status post left thoracotomy with repair of paraesophageal hernia, Ernie-Norma procedure 3. History of paraesophageal hernia status post laparoscopic repair in 2004 at [facility] 4. History of coronary artery disease 5. Hypertension, admitted with hypertensive urgency 6. Hyperlipidemia 7. Previous tobacco dependence 8. History of medication-induced acute kidney injury 9. Gastroesophageal reflux disease Plan: 1. Keep nothing by mouth status, TPN infusing per orders. 2. She is scheduled for an esophagogastroduodenoscopy with dilation on 02/03/2019 to be performed by Dr. Philip Rodriguez. Barium swallow showed high- grade obstruction, secondary to edema. 3. Encourage use of her incentive spirometry every hour while awake. Wean oxygen as tolerated. 4. GI and DVT prophylaxis. 5. Pain management per current when necessary orders. 6. Continue Zofran for nausea and vomiting. 7. Medical management per primary care service recommendations. 8. Encourage increase in activity, consult occupational and physical therapy. 9. More recommendations to follow based on patient's clinical course. Time with Patient: Greater than 30
[2019-02-01] MEDS ORDERED: FUROSEMIDE 10 MG/ML 4 ML VIAL IV STA (11:12)
--- NOTE | 2019-02-01 11:14 | P.PN ---
Subjective Progress Note Date: 02/01/19 Principal diagnosis: Nausea and vomiting Patient was seen and examined. No acute events overnight. Patient reports intense nausea and dry heaves and, decently controlled with Zofran but only lasts for 3 hours. She denies any chest pain, shortness of breath or palpitations. No nausea or vomiting. No fever or chills. Complains of cough productive of clear sputum. Objective - Vital Signs Vital signs: Vital Signs Temp 97.7 F 02/01/19 08:00 Pulse 74 02/01/19 08:00 Resp 16 02/01/19 08:00 BP 166/123 02/01/19 08:00 Pulse Ox 95 02/01/19 08:00 Intake & Output 01/31/19 02/01/19 02/01/19 18:59 06:59 18:59 Weight 88.5 kg 89.2 kg Other: Voiding Method Toilet Toilet # Bowel Movements 0 - Exam General: [non toxic], [no distress], [appears at stated age] Derm: [warm], [dry] Head: [atraumatic], [normocephalic], [symmetric] Eyes: [EOMI], [no lid lag], [anicteric sclera] Mouth: [no lip lesion], [mucus membranes moist] Cardiovascular: [S1S2 reg], [no murmur], [positive DP pulse bilateral] Lungs: [CTA bilateral], [no rhonchi, no rales] , [no accessory muscle use] Abdominal: [soft], [ nontender to palpation], [no guarding], [no appreciable organomegaly] Ext: [no gross muscle atrophy], [no edema], [no contractures] Neuro: [no focal neuro deficits] Psych: [Alert], [oriented], [appropriate affect] - Labs CBC & Chem 7: 01/31/19 06:38 02/01/19 06:54 Labs: Abnormal Lab Results - Last 24 Hours (Table) 01/31/19 01/31/19 01/31/19 Range/Units 18:00 21:01 23:39 BUN (7-17) mg/dL Glucose (74-99) mg/dL POC Glucose (mg/dL) 156 H 129 H 136 H (75-99) mg/dL 02/01/19 02/01/19 Range/Units 06:12 06:54 BUN 22 H (7-17) mg/dL Glucose 121 H (74-99) mg/dL POC Glucose (mg/dL) 152 H (75-99) mg/dL Assessment and Plan Assessment: Assessment and Plan Nausea and vomiting likely postoperative complication for esophageal hernia Dysphagia Bilateral pleural effusion Community acquired pneumonia Hypertensive urgency CAD Plans: Start Zofran IV every 6 hours as needed for nausea or vomiting. Tylenol or Dilaudid (changed from every 4 to every 3 hours as needed) as needed for severe pain. Start Protonix 40 mg IV daily. Discussed with CUT LACE MACHINE OPERATOR Rosalinda, plans for endoscopy on Sunday to relieve high grade obstruction. Add Reglan. States that this is going on for the past 6 months. Barium swallow shows high- grade obstruction likely secondary to edema. Plans: Follow speech therapy recommendations on diet. Started on TPN. As seen on CT abdomen and pelvis. Unknown if related to recent surgery. Repeat chest x-ray shows bilateral infiltrate and pleural effusion which is stable. Plans: O2 per NC to maintain O2 saturation greater than 92%. Continue antibiotics and the treatment of pneumonia. One time dose of Lasix IV today. As seen on chest x-ray. Plans: Start Rocephin IV, azithromycin. Follow-up echocardiogram. BP 166/123. Plans: Continue amlodipine (increased from 2.5-10 mg) and metoprolol. Added hydralazine IV as needed for SBP greater than 200. Insure adequate pain management. Monitor vitals, adjust medications as necessary. Plans: Restart aspirin and Lipitor. Plans for endoscopy on Sunday. Symptomatic control of nausea or vomiting. On antibiotics for community acquired pneumonia and pleural effusion. She is pending clinical improvement.
[2019-02-01] MEDS: METOCLOPRAMIDE 5 MG/ML 2 ML VIAL IVP SCH ×3 (11:33→23:32)
[2019-02-01 13:13] LABS: Glucose,Whole Blood 121 mg/dL (75-99)
[2019-02-01] MEDS: D5-0.45% NACL WITH KCL 20MEQ/L 1,000 ML IV SCH (15:31)
[2019-02-01] MEDS: 1: MVI, ADULT NO.4 WITH VIT K 10 ML, TRACE (CONC-1ML/DOSE) 1 ML in AMINO ACID 5%-D15W+LY IV SCH ×3 (17:19)
[2019-02-01] MEDS: AZITHROMYCIN 500 MG in SODIUM CHLORIDE 0.9% 250 ML IVPB SCH (18:01)
[2019-02-01 18:19] LABS: Glucose,Whole Blood 141 mg/dL (75-99)
[2019-02-01 23:31] LABS: Glucose,Whole Blood 143 mg/dL (75-99)
[2019-02-02] MEDS: HYDROmorphone 1 MG/ML 1 ML SYRINGE IVP PRN ×4 (06:11→23:20)
[2019-02-02] MEDS: METOCLOPRAMIDE 5 MG/ML 2 ML VIAL IVP SCH ×4 (06:11→23:20)
[2019-02-02] MEDS: D5-0.45% NACL WITH KCL 20MEQ/L 1,000 ML IV SCH ×2 (06:14→22:47)
[2019-02-02 06:23] LABS: Glucose,Whole Blood 152 mg/dL (75-99)
[2019-02-02] MEDS: INSULIN ASPART (NovoLOG) 100 UNIT/ML VIAL SQ SCH ×3 (06:33→18:11)
[2019-02-02] MEDS: 1: MVI, ADULT NO.4 WITH VIT K 10 ML, TRACE (CONC-1ML/DOSE) 1 ML in AMINO ACID 5%-D15W+LY IV SCH ×6 (06:35→18:03)
[2019-02-02 07:23] LABS: Calcium 8.6 mg/dL (8.4-10.2); Magnesium 2.1 mg/dL (1.6-2.3); Phosphorus 4.2 mg/dL (2.5-4.5); Potassium 4.2 mmol/L (3.5-5.1)
--- NOTE | 2019-02-02 07:50 | P.PN ---
Subjective Progress Note Date: 02/02/19 Principal diagnosis: Nausea, vomiting, dysphagia, history of recurrent esophageal hernia, status post left thoracotomy with repair of paraesophageal hernia, Ernie Joe procedure, remote history of esophageal hernia repair status post laparoscopic repair in 2004 at [facility], history of coronary artery disease, hypertension, hyperlipidemia, remote history of tobacco dependence, gastroesophageal reflux disease and medication induced acute kidney injury. The patient is laying in bed on the third floor cardiac stepdown unit. She is in no acute distress. The patient reports she feels much improved today, although reports that she is still having some episodes of nausea. She ambulated in the cardiac stepdown hallway yesterday with minimal assistance. Oxygen saturations are 97% on 2 L nasal cannula and she is achieving 1000 mL on her incentive spirometry with encouragement. Remains afebrile and her blood pressure was 118/71 and 124/59 throughout the night. TPN is infusing at goal rate of 70 mL per hour. Objective - Vital Signs Vital signs: Vital Signs Temp 98.2 F 02/02/19 04:00 Pulse 102 H 02/02/19 04:00 Resp 18 02/02/19 04:00 BP 118/71 02/02/19 04:00 Pulse Ox 97 02/02/19 04:00 Intake & Output 02/01/19 02/02/19 02/02/19 18:59 06:59 18:59 Output Total 200 Balance -200 Weight 89.9 kg Output: Urine 200 Other: Voiding Method Toilet Toilet # Voids 1 1 - Constitutional General appearance: Present: cooperative, no acute distress, obese - Respiratory Details: Lung sounds essentially clear to her bilateral upper lobes, diminished bilateral bases. Respirations are symmetrical and nonlabored. Oxygen saturation are 97% on 2 L nasal cannula. Achieving 1000 mL on her incentive spirometry with encouragement. - Cardiovascular Details: Regular rhythm and rate. S1 and S2 present, negative for S3, gallop or murmur. Remote telemetry showing normal sinus rhythm heart rate 75. Knee-high sequential compression devices in place to bilateral lower extremities. No edema present. Left antecubital PICC line in place and functioning. - Gastrointestinal Gastrointestinal Comment(s): Abdomen is soft, nontender and nondistended. Active bowel sounds present in all 4 abdominal quadrants. No guarding or rigidity. No organomegaly. - Genitourinary Genitourinary Comment(s): Voiding clear yellow urine. - Integumentary Integumentary Comment(s): Skin is warm and dry. No clubbing or cyanosis is present. Left chest thoracotomy incision clean, dry and approximated. No drainage or redness is present. No rash or abnormal pigmentation is present. - Neurologic Neurologic: Present: CNII-XII intact - Musculoskeletal Musculoskeletal: Present: gait normal, generalized weakness, strength equal bilaterally - Psychiatric Psychiatric: Present: A&O x's 3, appropriate affect, intact judgment & insight - Allied health notes Allied health notes reviewed: nursing - Labs CBC & Chem 7: 01/31/19 06:38 02/02/19 05:56 Labs: Abnormal Lab Results - Last 24 Hours (Table) 02/01/19 02/01/19 02/01/19 Range/Units 13:10 18:07 23:31 BUN (7-17) mg/dL Glucose (74-99) mg/dL POC Glucose (mg/dL) 121 H 141 H 143 H (75-99) mg/dL 02/02/19 02/02/19 Range/Units 05:56 06:22 BUN 27 H (7-17) mg/dL Glucose 131 H (74-99) mg/dL POC Glucose (mg/dL) 152 H (75-99) mg/dL Assessment and Plan Assessment: 1. Dysphagia, nausea and vomiting 2. Recurrent paraesophageal hernia, status post left thoracotomy with repair of paraesophageal hernia, Ernie-Norma procedure 3. History of paraesophageal hernia status post laparoscopic repair in 2004 at [facility] 4. History of coronary artery disease 5. Hypertension, admitted with hypertensive urgency 6. Hyperlipidemia 7. Previous tobacco dependence 8. History of medication-induced acute kidney injury 9. Gastroesophageal reflux disease Plan: 1. Keep nothing by mouth status, TPN infusing per orders. 2. The patient is scheduled for an esophagogastroduodenoscopy with dilation, to lucila 02/03/2019 to be performed by Dr. Philip Rodriguez. Barium swallow showed high-grade obstruction, secondary to edema. 3. Encourage use of her incentive spirometry every hour while awake. Wean oxygen as tolerated. 4. GI and DVT prophylaxis. 5. Pain management per current when necessary orders. 6. Continue Zofran for complaints of nausea and vomiting. 7. Medical management per primary care service recommendations. 8. Encourage increase in activity, occupational and physical therapy following. 9. Speech therapy is following. 10. More recommendations to follow based on patient's clinical course. Time with Patient: Greater than 30
--- NOTE | 2019-02-02 09:46 | P.PN ---
Subjective Progress Note Date: 02/02/19 Principal diagnosis: Nausea and vomiting Patient was seen and examined. No acute events overnight. Patient reports significant improvement in her nausea and dry heaving since being started on Reglan. Not tolerating popsicles and ice chips. Plans for endoscopy tomorrow for dilation of esophagus. She denies any chest pain, shortness of breath or palpitations. Ambulating okay. Able to take a shower this morning. Objective - Vital Signs Vital signs: Vital Signs Temp 98.2 F 02/02/19 04:00 Pulse 102 H 02/02/19 04:00 Resp 18 02/02/19 04:00 BP 118/71 02/02/19 04:00 Pulse Ox 97 02/02/19 04:00 Intake & Output 02/01/19 02/02/19 02/02/19 18:59 06:59 18:59 Output Total 200 200 Balance -200 -200 Weight 89.9 kg Output: Urine 200 200 Other: Voiding Method Toilet Toilet # Voids 1 1 1 - Exam General: [non toxic], [no distress], [appears at stated age] Derm: [warm], [dry] Head: [atraumatic], [normocephalic], [symmetric] Eyes: [EOMI], [no lid lag], [anicteric sclera] Mouth: [no lip lesion], [mucus membranes moist] Cardiovascular: [S1S2 reg], [no murmur], [positive DP pulse bilateral] Lungs: [CTA bilateral], [no rhonchi, no rales] , [no accessory muscle use] Abdominal: [soft], [ nontender to palpation], [no guarding], [no appreciable organomegaly] Ext: [no gross muscle atrophy], [no edema], [no contractures] Neuro: [no focal neuro deficits] Psych: [Alert], [oriented], [appropriate affect] - Labs CBC & Chem 7: 01/31/19 06:38 02/02/19 05:56 Labs: Abnormal Lab Results - Last 24 Hours (Table) 02/01/19 02/01/19 02/01/19 Range/Units 13:10 18:07 23:31 BUN (7-17) mg/dL Glucose (74-99) mg/dL POC Glucose (mg/dL) 121 H 141 H 143 H (75-99) mg/dL 02/02/19 02/02/19 Range/Units 05:56 06:22 BUN 27 H (7-17) mg/dL Glucose 131 H (74-99) mg/dL POC Glucose (mg/dL) 152 H (75-99) mg/dL Assessment and Plan Assessment: Assessment and Plan Nausea and vomiting likely postoperative complication for esophageal hernia Dysphagia Bilateral pleural effusion Community acquired pneumonia Hypertension CAD Plans: Start Zofran IV every 6 hours as needed for nausea or vomiting. Tylenol or Dilaudid (changed from every 4 to every 3 hours as needed) as needed for severe pain. Start Protonix 40 mg IV daily. Discussed with DRAW PRESS OPERATOR Rosalinda, plans for endoscopy on Sundayto relieve high grade obstruction. Add Reglan. States that this is going on for the past 6 months. Barium swallow shows high-grade obstruction likely secondary to edema. Plans: Follow speech therapy recommendations on diet. Started on TPN. Plans as above. As seen on CT abdomen and pelvis. Unknown if related to recent surgery. Repeat chest x-ray shows bilateral infiltrate and pleural effusion which is stable. Plans: O2 per NC to maintain O2 saturation greater than 92%. Continue antibiotics and the treatment of pneumonia. As seen on chest x-ray. Plans: Continue Rocephin IV, azithromycin (today will be day 3). Follow-up echocardiogram. Continue discharge patient on oral Levaquin to complete a total of 7 days. BP 118/71. Plans: Continue amlodipine (increased from 2.5-10 mg) and meto prolol. Added hydralazine IV as needed for SBP greater than 200. Insure adequate pain management. Monitor vitals, adjust medications as necessary. Plans: Restart aspirin and Lipitor. Plans for endoscopy on Sunday under Dr. Rodriguez. Symptomatic control of nausea or vomiting. On antibiotics for community acquired pneumonia and pleural effusion. She is pending clinical improvement. Likely DC in 1-2 days.
[2019-02-02] MEDS: PSYLLIUM HUSK 100% 6 GM PACKET PO SCH (11:10)
[2019-02-02] MEDS: CITALOPRAM HYDROBROMIDE 20 MG TAB PO SCH (11:10)
[2019-02-02] MEDS: ASPIRIN 81 MG PO SCH (11:10)
[2019-02-02] MEDS: ATORVASTATIN 40 MG TAB PO SCH (11:10)
[2019-02-02] MEDS: amLODIPine 10 MG TAB PO SCH (11:34)
[2019-02-02] MEDS: HYDROcodone/APAP 5-325MG 1 EACH TAB PO PRN ×2 (11:35→16:39)
[2019-02-02] MEDS: HEPARIN SODIUM,PORCINE 5,000 UNIT/ML 1 ML VIAL SQ SCH ×2 (11:40→19:52)
[2019-02-02] MEDS: PANTOPRAZOLE 40 MG/10 ML VIAL IVP SCH (11:49)
[2019-02-02 11:57] LABS: HCT 36.1 % (34.0-46.0); HGB 11.3 gm/dL (11.4-16.0); Hypochromasia Slight; MCHC 31.3 g/dL (31.0-37.0); Mean Platelet Volume 9.3; Platelet Count 449 k/uL (150-450); RBC 3.65 m/uL (3.80-5.40); RDW 13.5 % (11.5-15.5); WBC 19.1 k/uL (3.8-10.6)
[2019-02-02 12:28] LABS: Glucose,Whole Blood 137 mg/dL (75-99)
[2019-02-02] MEDS: AZITHROMYCIN 500 MG in SODIUM CHLORIDE 0.9% 250 ML IVPB SCH (16:40)
[2019-02-02 18:31] LABS: Glucose,Whole Blood 123 mg/dL (75-99)
[2019-02-03] MEDS: INSULIN ASPART (NovoLOG) 100 UNIT/ML VIAL SQ SCH ×4 (00:03→18:40)
[2019-02-03 00:04] LABS: Glucose,Whole Blood 127 mg/dL (75-99)
[2019-02-03] MEDS: HYDROmorphone 1 MG/ML 1 ML SYRINGE IVP PRN ×5 (03:50→21:45)
[2019-02-03] MEDS: 1: MVI, ADULT NO.4 WITH VIT K 10 ML, TRACE (CONC-1ML/DOSE) 1 ML in AMINO ACID 5%-D15W+LY IV SCH ×6 (05:43→19:24)
[2019-02-03 06:11] LABS: Glucose,Whole Blood 134 mg/dL (75-99)
[2019-02-03] MEDS: METOCLOPRAMIDE 5 MG/ML 2 ML VIAL IVP SCH ×4 (06:26→23:36)
[2019-02-03 08:08] LABS: African American GFR (CKD) >90 (>60 ml/min/1.73 sqM); Anion Gap 5 mmol/L; Blood Urea Nitrogen 25 mg/dL (7-17); Calcium 8.3 mg/dL (8.4-10.2); Carbon Dioxide 31 mmol/L (22-30); Chloride 100 mmol/L (98-107); Glucose 122 mg/dL (74-99); Magnesium 2.1 mg/dL (1.6-2.3); Phosphorus 3.8 mg/dL (2.5-4.5); Potassium 4.1 mmol/L (3.5-5.1); Sodium 136 mmol/L (137-145)
--- NOTE | 2019-02-03 08:41 | P.PN ---
Subjective Progress Note Date: 02/03/19 Principal diagnosis: Nausea, vomiting, dysphagia, history of recurrent esophageal hernia, status post left thoracotomy with repair of paraesophageal hernia, Ernie Joe procedure, remote history of esophageal hernia repair status post laparoscopic repair in 2004 at [facility], history of coronary artery disease, hypertension, hyperlipidemia, remote history of tobacco dependence, gastroesophageal reflux disease and medication induced acute kidney injury. The patient is laying in bed on the third floor cardiac stepdown unit. She is in no acute distress. She reports that she feels much improved today, her pain is well controlled and she denies any complaints of nausea. The patient has been ambulating in the cardiac stepdown unit hallway with minimal assistance and was up in the hallway 4 times yesterday. TPN remains infusing per orders. She remains nothing by mouth and is scheduled for an EGD with dilation today to be performed by Dr. Philip Rodriguez. Oxygen saturation are 96% on 2 L nasal cannula and she is achieving 1000 mL on her incentive spirometry. Objective - Vital Signs Vital signs: Vital Signs Temp 98.7 F 02/03/19 04:06 Pulse 77 02/03/19 04:06 Resp 16 02/03/19 04:06 BP 140/64 02/03/19 04:06 Pulse Ox 96 02/03/19 04:06 Intake & Output 02/02/19 02/03/19 02/03/19 18:59 06:59 18:59 Intake Total 1011 1000 Output Total 200 655 Balance 811 345 Weight 89.9 kg 91.9 kg Intake: Intake, IV Titration 1011 1000 Amount Amino Acid 5%-D15w+Lytes* 1000 E* 1,000 ml @ 70 mls/hr IV .BY DURATION JONNY Rx#: [id number] Mvi, Adult No.4 with Vit 1011 K 10 ml Trace (Conc-1Ml/ Dose) 1 ml In Amino Acid 5%-D15w+Lytes*E* 1,000 ml @ 70 mls/hr IV .BY DURATION JONNY Rx#: [id number] Output: Urine 200 655 Other: Voiding Method Toilet Toilet # Voids 1 1 - Constitutional General appearance: Present: cooperative, no acute distress, obese - Respiratory Details: Lungs sounds diminished bilateral bases. No wheezes, crackles or rhonchi present. Respirations are symmetrical and nonlabored. Oxygen saturation are 96% on 2 L nasal cannula. Achieving 1000 mL on her incentive spirometry. - Cardiovascular Details: Regular rhythm and rate. S1 and S2 present, negative for S3, gallop or murmur. Remote telemetry showing normal sinus rhythm heart rate 71. No edema present. Knee-high sequential compression devices in place for bilateral lower extremities. Left arm PICC line in place and functioning. - Gastrointestinal Gastrointestinal Comment(s): Abdomen is soft, nontender and nondistended. Active bowel sounds all 4 abdominal quadrants. No guarding or rigidity. No organomegaly. - Genitourinary Genitourinary Comment(s): Voiding clear ted urine. - Integumentary Integumentary Comment(s): Skin is warm and dry. No clubbing or cyanosis is present. No rash or abnormal pigmentation is present. Left chest thoracotomy incision is clean, dry and approximated. No drainage or redness is present. - Neurologic Neurologic: Present: CNII-XII intact - Musculoskeletal Musculoskeletal: Present: gait normal, strength equal bilaterally - Psychiatric Psychiatric: Present: A&O x's 3, appropriate affect, intact judgment & insight - Allied health notes Allied health notes reviewed: nursing - Labs CBC & Chem 7: 02/02/19 05:56 02/03/19 07:30 Labs: Abnormal Lab Results - Last 24 Hours (Table) 02/02/19 02/02/19 02/02/19 Range/Units 05:56 12:01 18:10 WBC 19.1 H (3.8-10.6) k/uL RBC 3.65 L (3.80-5.40) m/uL Hgb 11.3 L (11.4-16.0) gm/dL Sodium (137-145) mmol/L Carbon Dioxide (22-30) mmol/L BUN (7-17) mg/dL Glucose (74-99) mg/dL POC Glucose (mg/dL) 137 H 123 H (75-99) mg/dL Calcium (8.4-10.2) mg/dL 02/03/19 02/03/19 02/03/19 Range/Units 00:02 06:04 07:30 WBC (3.8-10.6) k/uL RBC (3.80-5.40) m/uL Hgb (11.4-16.0) gm/dL Sodium 136 L (137-145) mmol/L Carbon Dioxide 31 H (22-30) mmol/L BUN 25 H (7-17) mg/dL Glucose 122 H (74-99) mg/dL POC Glucose (mg/dL) 127 H 134 H (75-99) mg/dL Calcium 8.3 L (8.4-10.2) mg/dL Assessment and Plan Assessment: 1. Dysphagia, nausea and vomiting 2. Recurrent paraesophageal hernia, status post left thoracotomy with repair of paraesophageal hernia, Ernie-Norma procedure 3. History of paraesophageal hernia status post laparoscopic repair in 2004 at [facility] 4. History of coronary artery disease 5. Hypertension, admitted with hypertensive urgency 6. Hyperlipidemia 7. Previous tobacco dependence 8. History of medication-induced acute kidney injury 9. Gastroesophageal reflux disease Plan: 1. Keep nothing by mouth status, TPN infusing per orders. 2. The patient is scheduled for an esophagogastroduodenoscopy with dilation today to be performed by Dr. Philip Rodriguez. Barium swallow showed high-grade obstruction, secondary to edema. 3. Encourage use of her incentive spirometry every hour while awake. Wean oxygen as tolerated. 4. GI and DVT prophylaxis. 5. Pain management per current when necessary orders. 6. Continue Zofran and Reglan for complaints of nausea and vomiting. 7. Medical management per primary care service recommendations. 8. Encourage increase in activity, occupational and physical therapy following. 9. Speech therapy is following. 10. More recommendations to follow based on patient's clinical course. Time with Patient: Greater than 30
[2019-02-03] MEDS: amLODIPine 10 MG TAB PO SCH (09:21)
[2019-02-03] MEDS: PANTOPRAZOLE 40 MG/10 ML VIAL IVP SCH (09:42)
[2019-02-03] MEDS: CITALOPRAM HYDROBROMIDE 20 MG TAB PO SCH (11:40)
[2019-02-03] MEDS: ATORVASTATIN 40 MG TAB PO SCH (11:40)
[2019-02-03] MEDS: PSYLLIUM HUSK 100% 6 GM PACKET PO SCH (11:40)
[2019-02-03] MEDS: ASPIRIN 81 MG PO SCH (11:40)
[2019-02-03] MEDS: HEPARIN SODIUM,PORCINE 5,000 UNIT/ML 1 ML VIAL SQ SCH ×2 (11:41→21:45)
[2019-02-03 11:52] LABS: Glucose,Whole Blood 109 mg/dL (75-99)
[2019-02-03] MEDS ORDERED: IV FLUID CONTINUATION 1,000 ML IV ONE ×2 (13:19)
[2019-02-03] MEDS ORDERED: PROPOFOL 10 MG/ML 20 ML VIAL IV ONE (13:25)
[2019-02-03] MEDS ORDERED: LIDOCAINE 1% INJ 10MG/ML (20 ML MDV) ONE (13:25)
--- NOTE | 2019-02-03 13:59 | P.OP ---
Date of Procedure: 02/03/19 Preoperative Diagnosis: Esophageal stenosis, status post Ernie-Norma Postoperative Diagnosis: Esophageal stenosis Procedure(s) Performed: Esophagogastroscopy with esophageal dilatation under fluoroscopic guidance Anesthesia: MAC Surgeon: Philip Rodriguez Estimated Blood Loss (ml): 0 IV fluids (ml): 200 Urine output (ml): 0 Pathology: none sent Condition: stable Disposition: PACU Indications for Procedure: 68-year-old female who underwent left thoracotomy and repair of a recurrent paraesophageal hernia about 2 weeks ago. This was, acute by shortened esophagus and the Ernie-Norma procedure was performed. Postoperatively the patient was able to was discharged home. She presented at the end of last week with complaints of inability to swallow and regurgitation of undigested food. Room swallow was obtained. There was no evidence of leak. On the other hand, there was apparent stricture of the distal jordana-esophagus. EGD and dilatation were recommended. Operative Findings: We were able to easily pass the smaller size gastroscope into the stomach through the esophagus. Once in the stomach there was no evidence of the tumor other problem. On completion of the procedure the scope was again passed and again passed easily. There was no evidence of perforation. Description of Procedure: Patient was brought to the endoscopy suite. IV sedation was given. Pediatric gastroscope was passed into the proximal esophagus and advanced down to the distal esophagus. We were able to gently and carefully passed the scope into the stomach. This proceeded without any difficulty. A wire was placed through the scope and positioned in the gastric antrum under fluoroscopic guidance. The scope was removed and the wire left in place. Over the wire serial dilatation was performed up to [id number]. This was performed easily and with out any bleeding. On completion the gastroscope was repassed. The mucosa was intact. There is no evidence of perforation. The wire was removed and the stomach was decompressed of air and the scope was removed. Patient tolerated the procedure well.
--- NOTE | 2019-02-03 14:20 | P.PN ---
Subjective Progress Note Date: 02/03/19 Principal diagnosis: The patient is a 68-year-old female status post left thoracotomy and Ernie-Norma and repair of recurrent Paraesophageal hernia presented with dysph agia and was admitted for intractable nausea and vomiting was found to have stricture of the distal jordana-esophagus with barium swallow suggested stenosis. The patient was placed on IV fluids later transition to TPN Patient doing well this morning scheduled to go have her EGD with dilatation done today, reports her nausea is improved. No acute events overnight Objective - Vital Signs Vital signs: Vital Signs Temp 98.7 F 02/03/19 04:06 Pulse 77 02/03/19 04:06 Resp 16 02/03/19 04:06 BP 140/64 02/03/19 04:06 Pulse Ox 96 02/03/19 04:06 Intake & Output 02/02/19 02/03/19 02/03/19 18:59 06:59 18:59 Intake Total 1011 1000 200 Output Total 200 655 Balance 811 345 200 Weight 89.9 kg 91.9 kg Intake: IV 200 Intake, IV Titration 1011 1000 Amount Amino Acid 5%-D15w+Lytes* 1000 E* 1,000 ml @ 70 mls/hr IV .BY DURATION JONNY Rx#: [id number] Mvi, Adult No.4 with Vit 1011 K 10 ml Trace (Conc-1Ml/ Dose) 1 ml In Amino Acid 5%-D15w+Lytes*E* 1,000 ml @ 70 mls/hr IV .BY DURATION JONNY Rx#: [id number] Output: Urine 200 655 Other: Voiding Method Toilet Toilet # Voids 1 1 - Exam Constitutional: No acute distress, conversant, pleasant Eyes: Anicteric sclerae, moist conjunctiva, no lid-lag, PERRLA ENMT: NC/AT,Oropharynx clear, no erythema, exudates Neck:Supple, FROM, no masses, or JVD, No carotid bruits; No thyromegaly Lungs: Clear to auscultation, Clear to percussion, Normal respiratory effort, no accessory muscle use Cardiovascular: Heart regular in rate and rhythm, No murmurs, gallops, or rubs no peripheral edema Abdominal: Soft Nontender, nom distended, no guarding, no rebound or rigidity, Normoactive bowel sounds No hepatomegaly, No splenomegaly, No palpable mass No abdominal wall hernia noted Skin: Normal temperature, tone, texture, turgor, No induration No subcutaneous nodules, No rash, lesions, No ulcers Extremities:No digital cyanosis No clubbing, Pedal pulses intact and symmetrical Radial pulses intact and symmetrical Normal gait and station, No calf tenderness Psychiatric: Alert and oriented to person, place and time, Appropriate affect Intact judgement Neuro: Muscles Strength 5/5 in all 4 extremities, Sensation to light touch grossly present throughout, Cranial nerves II-XII grossly intact. No focal sensory deficits - Labs CBC & Chem 7: 02/02/19 05:56 02/03/19 07:30 Labs: Abnormal Lab Results - Last 24 Hours (Table) 02/02/19 02/03/19 02/03/19 Range/Units 18:10 00:02 06:04 Sodium (137-145) mmol/L Carbon Dioxide (22-30) mmol/L BUN (7-17) mg/dL Glucose (74-99) mg/dL POC Glucose (mg/dL) 123 H 127 H 134 H (75-99) mg/dL Calcium (8.4-10.2) mg/dL 02/03/19 02/03/19 Range/Units 07:30 11:32 Sodium 136 L (137-145) mmol/L Carbon Dioxide 31 H (22-30) mmol/L BUN 25 H (7-17) mg/dL Glucose 122 H (74-99) mg/dL POC Glucose (mg/dL) 109 H (75-99) mg/dL Calcium 8.3 L (8.4-10.2) mg/dL Assessment and Plan Plan: Nausea and vomiting likely postoperative complication for paraesophageal hernia Esophageal stenosis post dilatation Dysphagia Bilateral pleural effusion Community acquired pneumonia Hypertension CAD Plans: Continue Zofran IV every 6 hours as needed for nausea or vomiting. Tylenol or Dilaudid (changed from every 4 to every 3 hours as needed) as needed for severe pain. Continue Protonix 40 mg IV daily. Discussed with JOHN Tellez, plans for endoscopy on Sundayto relieve high grade obstruction. Add Reglan. States that this is going on for the past 6 months. Barium swallow shows high- grade obstruction likely secondary to edema. Plans: Follow speech therapy recommendations on diet. Continued on TPN at 70 mL per hour. Plans as above. As seen on CT abdomen and pelvis. Unknown if related to recent surgery. Repeat chest x-ray shows bilateral infiltrate and pleural effusion which is stable. Plans: O2 per NC to maintain O2 saturation greater than 92%. Continue antibiotics and the treatment of pneumonia. As seen on chest x-ray. Plans: Continue Rocephin IV, azithromycin (today will be day 3). Follow-up echocardiogram. Continue discharge patient on oral Levaquin to complete a total of 7 days. BP 118/71. Plans: Continue amlodipine (increased from 2.5-10 mg) and metoprolol. Added hydralazine IV as needed for SBP greater than 200. Insure adequate pain management. Monitor vitals, adjust medications as necessary. Plans: Restart aspirin and Lipitor. Plans for endoscopy on Sunday under Dr. Rodriguez. Symptomatic control of nausea or vomiting. On antibiotics for community acquired pneumonia and pleural effusion. She is pending clinical improvement. Likely DC in 1-2 days
[2019-02-03] MEDS ORDERED: IOPAMIDOL-300 CONTRAST 30 ML VIAL (ORAL USE) PO PRN (14:40)
--- NOTE | 2019-02-03 16:20 | FL ---
EXAMINATION TYPE: FL fluoroscopy <1hr DATE OF EXAM: 02/03/2019 FLUOROSCOPY Fluoroscopy time of 1 minute 38 seconds was used during management of esophageal stricture. 1 image/ s document/s the procedure.
[2019-02-03 18:33] LABS: Glucose,Whole Blood 86 mg/dL (75-99)
[2019-02-03] MEDS: AZITHROMYCIN 500 MG in SODIUM CHLORIDE 0.9% 250 ML IVPB SCH (19:27)
[2019-02-03] MEDS: FAT EMULSION 20% 250 ML in EMPTY BAG 1 BAG IV SCH (19:29)
--- NOTE | 2019-02-03 19:49 | XR ---
EXAMINATION TYPE: XR KUB DATE OF EXAM: 02/03/2019 CLINICAL DATA: 68-year-old female, barium clearance for CT with contrast, [facility] COMPARISON: Correlation CT 01/30/2019 FINDINGS: Continued pleural effusions at the lung bases. No evidence for free intraperitoneal air. Scattered colonic and small bowel air. No dilated small bowel loops identified. Oral contrast is seen scattered throughout the colon and some layering within the stomach as well. Surgical material at th e GE junction. IMPRESSION: Extensive retained barium contrast, some layering within the stomach and the rest scattered throughou t the colon. Continued bilateral pleural effusions.
[2019-02-03] MEDS: ONDANSETRON 4 MG/2 ML VIAL IVP PRN (21:45)
[2019-02-03] MEDS: D5-0.45% NACL WITH KCL 20MEQ/L 1,000 ML IV SCH (21:58)
[2019-02-03] MEDS: HYDROcodone/APAP 5-325MG 1 EACH TAB PO PRN (23:37)
[2019-02-04 00:06] LABS: Glucose,Whole Blood 108 mg/dL (75-99)
[2019-02-04] MEDS: INSULIN ASPART (NovoLOG) 100 UNIT/ML VIAL SQ SCH ×5 (00:12→23:25)
[2019-02-04] MEDS: HYDROmorphone 1 MG/ML 1 ML SYRINGE IVP PRN ×3 (03:05→17:24)
[2019-02-04 06:11] LABS: Glucose,Whole Blood 129 mg/dL (75-99)
[2019-02-04] MEDS: METOCLOPRAMIDE 5 MG/ML 2 ML VIAL IVP SCH ×4 (06:15→23:23)
[2019-02-04] MEDS: HYDROcodone/APAP 5-325MG 1 EACH TAB PO PRN ×4 (06:15→20:44)
[2019-02-04 07:49] LABS: HCT 33.8 % (34.0-46.0); HGB 11.1 gm/dL (11.4-16.0); MCH 31.3 pg (25.0-35.0); MCHC 32.8 g/dL (31.0-37.0); MCV 95.5 fL (80.0-100.0); Mean Platelet Volume 7.8; Platelet Count 379 k/uL (150-450); RBC 3.54 m/uL (3.80-5.40); RDW 14.1 % (11.5-15.5); WBC 16.7 k/uL (3.8-10.6)
[2019-02-04 08:00] LABS: Calcium 8.7 mg/dL (8.4-10.2); Potassium 4.7 mmol/L (3.5-5.1)
[2019-02-04] MEDS: ONDANSETRON 4 MG/2 ML VIAL IVP PRN (09:26)
[2019-02-04] MEDS: PSYLLIUM HUSK 100% 6 GM PACKET PO SCH (10:06)
[2019-02-04] MEDS: CITALOPRAM HYDROBROMIDE 20 MG TAB PO SCH (10:08)
[2019-02-04] MEDS: PANTOPRAZOLE 40 MG/10 ML VIAL IVP SCH ×2 (10:08→20:46)
[2019-02-04] MEDS: ATORVASTATIN 40 MG TAB PO SCH (10:09)
[2019-02-04] MEDS: amLODIPine 10 MG TAB PO SCH (10:09)
[2019-02-04] MEDS: ASPIRIN 81 MG PO SCH (10:09)
[2019-02-04] MEDS: HEPARIN SODIUM,PORCINE 5,000 UNIT/ML 1 ML VIAL SQ SCH ×2 (10:09→20:46)
[2019-02-04] MEDS: D5-0.45% NACL WITH KCL 20MEQ/L 1,000 ML IV SCH (11:30)
[2019-02-04 11:57] LABS: Glucose,Whole Blood 98 mg/dL (75-99)
[2019-02-04] MEDS: hydrALAZINE HCL 20 MG/ML 1 ML VIAL IVP PRN (12:06)
[2019-02-04] MEDS: 1: MVI, ADULT NO.4 WITH VIT K 10 ML, TRACE (CONC-1ML/DOSE) 1 ML in AMINO ACID 5%-D15W+LY IV SCH ×6 (12:06→16:36)
[2019-02-04] MEDS ORDERED: BISACODYL 10 MG SUPP RECTAL PRN (12:54)
--- NOTE | 2019-02-04 13:15 | P.PN ---
Subjective Progress Note Date: 02/04/19 Principal diagnosis: Esophageal stenosis, nausea, vomiting, dysphagia, history of recurrent esophageal hernia, status post left thoracotomy with repair of paraesophageal hernia, Ernie Joe procedure. Remote history of esophageal hernia repair status post laparoscopic repair in 2004 at [facility], history of coronary artery disease, hypertension, hyperlipidemia, previous tobacco dependence, gastroesophageal reflux disease and medication induced acute kidney injury. POD #1 esophagogastroscopy with esophageal dilatation under fluoroscopic guidance The patient is currently sitting up in bed in no acute distress. Does state she is feeling a little better. She has been able to keep down her oral medications and some apple juice. She does lack motivation and prefers to remain in bed for the majority of the day. She does need a lot of encouragement to get up and get moving. The pressure has been creeping up, however she was taken off her beta braulio for reasons unknown. Objective - Vital Signs Vital signs: Vital Signs Temp 98.1 F 02/04/19 10:01 Pulse 83 02/04/19 10:01 Resp 17 02/04/19 10:01 BP 152/65 02/04/19 10:01 Pulse Ox 94 L 02/04/19 10:01 Intake & Output 02/03/19 02/04/19 02/04/19 18:59 06:59 18:59 Intake Total 1211 1011 Output Total 1350 Balance 1211 -1350 1011 Weight 92.6 kg Intake: IV 200 Intake, IV Titration 1011 1011 Amount Mvi, Adult No.4 with Vit 1011 1011 K 10 ml Trace (Conc-1Ml/ Dose) 1 ml In Amino Acid 5%-D15w+Lytes*E* 1,000 ml @ 70 mls/hr IV .BY DURATION [facility] Rx#: [id number] Output: Urine 1350 Other: Voiding Method Toilet Toilet Toilet # Voids 1 - Constitutional General appearance: Present: cooperative, no acute distress, obese - Respiratory Details: Lungs sounds clear but diminished in the bases bilaterally. Respirations even, nonlabored. Currently on room air with oxygen saturation 94%. Able to achieve 750 mL on her incentive spirometer. - Cardiovascular Details: S1, S2 present. Regular rate and rhythm, sinus rhythm on telemetry. Palpable peripheral pulses bilaterally. No edema present. No calf pain or tenderness noted. SCDs present. - Gastrointestinal Gastrointestinal Comment(s): Abdomen soft, nontender, nondistended. Hypoactive bowel sounds present 4 quadrants. Tolerating sips of clear liquids. Positive flatus, negative bowel movement. - Genitourinary Genitourinary Comment(s): Continues to void clear, yellow urine. - Integumentary Integumentary Comment(s): Skin is warm and dry with evidence of good perfusion. Left lateral surgical incision well approximated without drainage. - Neurologic Neurologic: Present: CNII-XII intact - Musculoskeletal Musculoskeletal: Present: strength equal bilaterally - Psychiatric Psychiatric: Present: A&O x's 3 - Allied health notes Allied health notes reviewed: nursing - Labs CBC & Chem 7: 02/04/19 07:25 02/04/19 07:25 Labs: Abnormal Lab Results - Last 24 Hours (Table) 02/04/19 02/04/19 02/04/19 Range/Units 00:04 06:09 07:25 WBC (3.8-10.6) k/uL RBC (3.80-5.40) m/uL Hgb (11.4-16.0) gm/dL Hct (34.0-46.0) % Sodium 135 L (137-145) mmol/L BUN 23 H (7-17) mg/dL Glucose 126 H (74-99) mg/dL POC Glucose (mg/dL) 108 H 129 H (75-99) mg/dL 02/04/19 Range/Units 07:25 WBC 16.7 H (3.8-10.6) k/uL RBC 3.54 L (3.80-5.40) m/uL Hgb 11.1 L (11.4-16.0) gm/dL Hct 33.8 L (34.0-46.0) % Sodium (137-145) mmol/L BUN (7-17) mg/dL Glucose (74-99) mg/dL POC Glucose (mg/dL) (75-99) mg/dL Assessment and Plan Assessment: 1. Esophageal stenosis. Nausea, vomiting, dysphagia. Status post esophagogastroscopy with esophageal dilatation 2. Recurrent paraesophageal hernia, status post left thoracotomy with repair of paraesophageal hernia, Ernie-Norma procedure 3. History of paraesophageal hernia status post laparoscopic repair in 2004 at [facility] 4. History of coronary artery disease 5. Hypertension 6. Hyperlipidemia 7. Previous tobacco dependence 8. History of medication-induced acute kidney injury 9. GERD Plan: 1. Clear liquid diet started. Will watch for toleration. Continue TPN per current orders. 2. Encourage incentive spirometry 10 times every hour while awake. 3. Increase activity. Patient needs to be out of bed and up in chair for all oral intake. She should ambulate in the hallway minimum 4 times daily. She should spend more time out of bed and then in bed. This was discussed with nursing. PT/OT following. 4. Pain management with current medication regimen. Would recommend decreasing narcotic use. 5. Bowel regimen added. 6. Metoprolol added back to medication regimen. 7. GI/DVT prophylaxis. 8. Medical management of other comorbidities, including antibiotics per primary care service. 9. More recommendations to follow based on patient's clinical course. Time with Patient: Greater than 30
[2019-02-04] MEDS: METOPROLOL TARTRATE 25 MG TAB PO SCH ×2 (14:02→20:46)
[2019-02-04] MEDS: AZITHROMYCIN 500 MG in SODIUM CHLORIDE 0.9% 250 ML IVPB SCH (17:22)
[2019-02-04 18:02] LABS: Glucose,Whole Blood 185 mg/dL (75-99)
[2019-02-04] MEDS: SENNOSIDES-DOCUSATE SODIUM 1 EACH TAB PO SCH (20:47)
[2019-02-04 23:19] LABS: Glucose,Whole Blood 95 mg/dL (75-99)
[2019-02-05] MEDS: HYDROmorphone 1 MG/ML 1 ML SYRINGE IVP PRN (01:28)
[2019-02-05] MEDS: 1: MVI, ADULT NO.4 WITH VIT K 10 ML, TRACE (CONC-1ML/DOSE) 1 ML in AMINO ACID 5%-D15W+LY IV SCH ×3 (02:12)
[2019-02-05 06:05] LABS: Glucose,Whole Blood 128 mg/dL (75-99)
[2019-02-05] MEDS: INSULIN ASPART (NovoLOG) 100 UNIT/ML VIAL SQ SCH ×4 (06:19→23:15)
[2019-02-05] MEDS: METOCLOPRAMIDE 5 MG/ML 2 ML VIAL IVP SCH ×2 (06:23→12:27)
[2019-02-05] MEDS: HYDROcodone/APAP 5-325MG 1 EACH TAB PO PRN ×3 (06:23→21:25)
--- NOTE | 2019-02-05 07:13 | XR ---
EXAMINATION TYPE: XR chest 2V DATE OF EXAM: 02/05/2019 COMPARISON: 01/31/2019 HISTORY: Status post esophageal dilatation. Postprocedure exam. TECHNIQUE: Frontal and lateral views of the chest are obtained. FINDINGS: Cardiomediastinal silhouette remains enlarged as seen on the prior. By basilar airspace di sease is similar to the prior exam with trace right and small left pleural effusions appear layering. Left-sided subclavian approach central venous catheter has been placed in the interim with its dista l tip in the proximal superior vena cava. No pneumothorax is seen. Surgical clips are noted on the la teral view near the region of the distal esophagus. IMPRESSION: Similar-appearing small left and trace right pleural effusions with bibasilar airspace d isease that may represent atelectasis or pneumonia.
--- NOTE | 2019-02-05 07:42 | P.PN ---
Subjective Progress Note Date: 02/04/19 Principal diagnosis: The patient is a 68-year-old female status post left thoracotomy and Ernie-Norma and repair of recurrent Paraesophageal hernia presented with dysph agia and was admitted for intractable nausea and vomiting was found to have stricture of the distal jordana-esophagus with barium swallow suggested stenosis. The patient was placed on IV fluids later transition to TPN Patient doing well this morning after having EGD with dilatation done yesterday, reports her nausea is improved. No acute events overnight, continues on TPN ice chips with plans advanced to clear liquids Objective - Vital Signs Vital signs: Vital Signs Temp 98.0 F 02/05/19 04:15 Pulse 72 02/05/19 04:15 Resp 18 02/05/19 04:15 BP 124/59 02/05/19 04:15 Pulse Ox 92 L 02/05/19 04:15 Intake & Output 02/04/19 02/05/19 02/05/19 18:59 06:59 18:59 Intake Total 2090 987 Output Total 1200 Balance 2090 - Weight 92.6 kg 94.5 kg Intake: Intake, IV Titration 1011 987 Amount Mvi, Adult No.4 with Vit 1011 987 K 10 ml Trace (Conc-1Ml/ Dose) 1 ml In Amino Acid 5%-D15w+Lytes*E* 1,000 ml @ 70 mls/hr IV .BY DURATION [facility] [place] Rx#: [id number] Oral 1080 Output: Urine 1200 Other: Voiding Method Toilet Toilet # Voids 1 - Exam Constitutional: No acute distress, conversant, pleasant Eyes: Anicteric sclerae, moist conjunctiva, no lid-lag, PERRLA ENMT: NC/AT,Oropharynx clear, no erythema, exudates Neck:Supple, FROM, no masses, or JVD, No carotid bruits; No thyromegaly Lungs: Clear to auscultation, Clear to percussion, Normal respiratory effort, no accessory muscle use Cardiovascular: Heart regular in rate and rhythm, No murmurs, gallops, or rubs no peripheral edema Abdominal: Soft Nontender, nom distended, no guarding, no rebound or rigidity, Normoactive bowel sounds No hepatomegaly, No splenomegaly, No palpable mass No abdominal wall hernia noted Skin: Normal temperature, tone, texture, turgor, No induration No subcutaneous nodules, No rash, lesions, No ulcers Extremities:No digital cyanosis No clubbing, Pedal pulses intact and symmetrical Radial pulses intact and symmetrical Normal gait and station, No calf tenderness Psychiatric: Alert and oriented to person, place and time, Appropriate affect Intact judgement Neuro: Muscles Strength 5/5 in all 4 extremities, Sensation to light touch grossly present throughout, Cranial nerves II-XII grossly intact. No focal sensory deficits - Labs CBC & Chem 7: 02/04/19 07:25 02/05/19 06:02 Labs: Abnormal Lab Results - Last 24 Hours (Table) 02/04/19 02/04/19 02/04/19 Range/Units 07:25 07:25 17:59 WBC 16.7 H (3.8-10.6) k/uL RBC 3.54 L (3.80-5.40) m/uL Hgb 11.1 L (11.4-16.0) gm/dL Hct 33.8 L (34.0-46.0) % Sodium 135 L (137-145) mmol/L BUN 23 H (7-17) mg/dL Glucose 126 H (74-99) mg/dL POC Glucose (mg/dL) 185 H (75-99) mg/dL 02/05/19 Range/Units 06:04 WBC (3.8-10.6) k/uL RBC (3.80-5.40) m/uL Hgb (11.4-16.0) gm/dL Hct (34.0-46.0) % Sodium (137-145) mmol/L BUN (7-17) mg/dL Glucose (74-99) mg/dL POC Glucose (mg/dL) 128 H (75-99) mg/dL Assessment and Plan Plan: Nausea and vomiting likely postoperative complication for paraesophageal hernia Esophageal stenosis post dilatation Dysphagia Bilateral pleural effusion Community acquired pneumonia Hypertension CAD Plans: Continue Zofran IV every 6 hours as needed for nausea or vomiting. Continue Tylenol ) as needed for severe pain. Continue Protonix 40 mg IV daily. Discussed with RECORDS ANALYST Rosalinda, plans for endoscopy on Sundayto relieve high grade obstruction. Add Reglan. States that this is going on for the past 6 months. Barium swallow shows high- grade obstruction likely secondary to edema. Plans: Follow speech therapy recommendations on diet. Continued on TPN at 70 mL per hour. Plans as above. As seen on CT abdomen and pelvis. Unknown if related to recent surgery. Repeat chest x-ray shows bilateral infiltrate and pleural effusion which is stable. Plans: O2 per NC to maintain O2 saturation greater than 92%. Continue antibioti cs and the treatment of pneumonia. As seen on chest x-ray. Plans: Continue Rocephin IV, azithromycin (today will be day 4). Follow-up echocardiogram. Continue discharge patient on oral Levaquin to complete a total of 7 days. BP 118/71. Plans: Continue amlodipine (increased from 2.5-10 mg) and metoprolol. Added hydralazine IV as needed for SBP greater than 200. Insure adequate pain management. Monitor vitals, adjust medications as necessary. Plans: Restart aspirin and Lipitor. Plans for endoscopy on Sunday under Dr. Rodriguez. Symptomatic control of nausea or vomiting. On antibiotics for community acquired pneumonia and pleural effusion. She is pending clinical improvement. Likely DC in 1-2 days
[2019-02-05 07:53] LABS: Calcium 8.8 mg/dL (8.4-10.2); Magnesium 2.1 mg/dL (1.6-2.3); Phosphorus 4.3 mg/dL (2.5-4.5); Potassium 5.1 mmol/L (3.5-5.1)
--- NOTE | 2019-02-05 08:46 | P.PN ---
Subjective Progress Note Date: 02/05/19 Principal diagnosis: Esophageal stenosis, nausea, vomiting, dysphagia, history of recurrent esophageal hernia, status post left thoracotomy with repair of paraesophageal hernia, Ernie Joe procedure. Remote history of esophageal hernia repair status post laparoscopic repair in 2004 at [facility], history of coronary artery disease, hypertension, hyperlipidemia, previous tobacco dependence, gastroesophageal reflux disease and medication induced acute kidney injury. POD #2 esophagogastroscopy with esophageal dilatation under fluoroscopic guidance The patient is currently sitting up in a recliner in no acute distress. Does state she is feeling a little better, has been able to keep down her oral medications and clear liquids. She has been ambulatory in the hallway. Objective - Vital Signs Vital signs: Vital Signs Temp 98.0 F 02/05/19 04:15 Pulse 72 02/05/19 04:15 Resp 18 02/05/19 04:15 BP 124/59 02/05/19 04:15 Pulse Ox 92 L 02/05/19 04:15 Intake & Output 02/04/19 02/05/19 02/05/19 18:59 06:59 18:59 Intake Total 2091 987 360 Output Total 1200 0 Balance 1 -213 360 Weight 92.6 kg 94.5 kg Intake: Intake, IV Titration 1011 987 Amount Mvi, Adult No.4 with Vit 1011 987 K 10 ml Trace (Conc-1Ml/ Dose) 1 ml In Amino Acid 5%-D15w+Lytes*E* 1,000 ml @ 70 mls/hr IV .BY DURATION JONNY Rx#: [id number] Oral 1080 360 Output: Urine 1200 0 Other: Voiding Method Toilet Toilet # Voids 1 # Bowel Movements 0 - Constitutional General appearance: Present: cooperative, no acute distress, obese - Respiratory Details: Lungs sounds clear but diminished in the bases bilaterally. Respirations even, nonlabored. Currently on room air with oxygen saturation 92%. Able to achieve 750 mL on her incentive spirometer. - Cardiovascular Details: S1, S2 present. Regular rate and rhythm, sinus rhythm on telemetry. Palpable peripheral pulses bilaterally. No edema present. No calf pain or tenderness noted. SCDs present. - Gastrointestinal Gastrointestinal Comment(s): Abdomen soft, nontender, nondistended. Hypoactive bowel sounds present 4 quadrants. Tolerating clear liquids. Positive flatus, negative bowel movement. - Genitourinary Genitourinary Comment(s): Continues to void clear, yellow urine. - Integumentary Integumentary Comment(s): Skin is warm and dry with evidence of good perfusion. Left lateral surgical incision well approximated without drainage. - Neurologic Neurologic: Present: CNII-XII intact - Musculoskeletal Musculoskeletal: Present: gait normal, strength equal bilaterally - Psychiatric Psychiatric: Present: A&O x's 3, appropriate affect, intact judgment & insight - Allied health notes Allied health notes reviewed: nursing - Labs CBC & Chem 7: 02/04/19 07:25 02/05/19 06:02 Labs: Abnormal Lab Results - Last 24 Hours (Table) 02/04/19 02/05/19 02/05/19 Range/Units 17:59 06:02 06:04 Sodium 135 L (137-145) mmol/L BUN 25 H (7-17) mg/dL Glucose 109 H (74-99) mg/dL POC Glucose (mg/dL) 185 H 128 H (75-99) mg/dL - Imaging and Cardiology Chest x-ray: report reviewed, image reviewed Assessment and Plan Assessment: 1. Esophageal stenosis. Nausea, vomiting, dysphagia. Status post esophagogastroscopy with esophageal dilatation 2. Recurrent paraesophageal hernia, status post left thoracotomy with repair of paraesophageal hernia, Ernie-Norma procedure 3. History of paraesophageal hernia status post laparoscopic repair in 2004 at [facility] 4. History of coronary artery disease 5. Hypertension 6. Hyperlipidemia 7. Previous tobacco dependence 8. History of medication-induced acute kidney injury 9. GERD Plan: 1. Diet advance to full liquid. If able to tolerate, will advance diet to solid food this evening or tomorrow morning. Continues to be able to tolerate diet will discontinue TPN and patient may be discharged to home. 2. Encourage incentive spirometry 10 times every hour while awake. 3. Increase activity. Patient needs to be out of bed and up in chair for all oral intake. She should ambulate in the hallway minimum 4 times daily. She should spend more time out of bed and then in bed. This was discussed with nursing. PT/OT following. 4. Pain management with current medication regimen. Dilaudid discontinued. 5. Bowel regimen added. 6. GI/DVT prophylaxis. 7. Medical management of other comorbidities, including antibiotics per primary care service. 8. More recommendations to follow based on patient's clinical course. Time with Patient: Greater than 30
[2019-02-05] MEDS: ASPIRIN 81 MG PO SCH (09:58)
[2019-02-05] MEDS: METOPROLOL TARTRATE 25 MG TAB PO SCH ×2 (09:58→21:24)
[2019-02-05] MEDS: ATORVASTATIN 40 MG TAB PO SCH (09:59)
[2019-02-05] MEDS: HEPARIN SODIUM,PORCINE 5,000 UNIT/ML 1 ML VIAL SQ SCH ×2 (09:59→21:24)
[2019-02-05] MEDS: CITALOPRAM HYDROBROMIDE 20 MG TAB PO SCH (09:59)
[2019-02-05] MEDS: PANTOPRAZOLE 40 MG/10 ML VIAL IVP SCH ×2 (09:59→21:24)
[2019-02-05] MEDS: BISACODYL 10 MG SUPP RECTAL SCH (10:00)
[2019-02-05] MEDS: PSYLLIUM HUSK 100% 6 GM PACKET PO SCH (10:00)
[2019-02-05 11:59] LABS: Glucose,Whole Blood 125 mg/dL (75-99)
[2019-02-05] MEDS: amLODIPine 10 MG TAB PO SCH (12:27)
--- NOTE | 2019-02-05 12:35 | P.PN ---
Subjective Progress Note Date: 02/05/19 Principal diagnosis: The patient is a 68-year-old female status post left thoracotomy and Ernie-Norma and repair of recurrent Paraesophageal hernia presented with dysph agia and was admitted for intractable nausea and vomiting was found to have stricture of the distal jordana-esophagus with barium swallow suggested stenosis. The patient was placed on IV fluids later transition to TPN Patient doing well this morning after having EGD with dilatation done 02/03/19, reports her nausea is improved. No acute events overnight, continues on TPN, doing well on clear liquid diet will plan to advance to regular diet later today. Objective - Vital Signs Vital signs: Vital Signs Temp 98.4 F 02/05/19 12:00 Pulse 87 02/05/19 12:00 Resp 16 02/05/19 12:00 BP 143/65 02/05/19 12:00 Pulse Ox 92 L 02/05/19 12:00 Intake & Output 02/04/19 02/05/19 02/05/19 18:59 06:59 18:59 Intake Total 2091 987 360 Output Total 1200 0 Balance 1 -213 360 Weight 92.6 kg 94.5 kg Intake: Intake, IV Titration 1011 987 Amount Mvi, Adult No.4 with Vit 1011 987 K 10 ml Trace (Conc-1Ml/ Dose) 1 ml In Amino Acid 5%-D15w+Lytes*E* 1,000 ml @ 70 mls/hr IV .BY DURATION JONNY Rx#: [id number] Oral 1080 360 Output: Urine 1200 0 Other: Voiding Method Toilet Toilet Toilet # Voids 1 # Bowel Movements 0 - Exam Constitutional: No acute distress, conversant, pleasant Eyes: Anicteric sclerae, moist conjunctiva, no lid-lag, PERRLA ENMT: NC/AT,Oropharynx clear, no erythema, exudates Neck:Supple, FROM, no masses, or JVD, No carotid bruits; No thyromegaly Lungs: Clear to auscultation, Clear to percussion, Normal respiratory effort, no accessory muscle use Cardiovascular: Heart regular in rate and rhythm, No murmurs, gallops, or rubs no peripheral edema Abdominal: Soft Nontender, nom distended, no guarding, no rebound or rigidity, Normoactive bowel sounds No hepatomegaly, No splenomegaly, No palpable mass No abdominal wall hernia noted Skin: Normal temperature, tone, texture, turgor, No induration No subcutaneous nodules, No rash, lesions, No ulcers Extremities:No digital cyanosis No clubbing, Pedal pulses intact and symmetrical Radial pulses intact and symmetrical Normal gait and station, No calf tenderness Psychiatric: Alert and oriented to person, place and time, Appropriate affect Intact judgement Neuro: Muscles Strength 5/5 in all 4 extremities, Sensation to light touch grossly present throughout, Cranial nerves II-XII grossly intact. No focal sensory deficits - Labs CBC & Chem 7: 02/04/19 07:25 02/05/19 06:02 Labs: Abnormal Lab Results - Last 24 Hours (Table) 02/04/19 02/05/19 02/05/19 Range/Units 17:59 06:02 06:04 Sodium 135 L (137-145) mmol/L BUN 25 H (7-17) mg/dL Glucose 109 H (74-99) mg/dL POC Glucose (mg/dL) 185 H 128 H (75-99) mg/dL 02/05/19 Range/Units 11:56 Sodium (137-145) mmol/L BUN (7-17) mg/dL Glucose (74-99) mg/dL POC Glucose (mg/dL) 125 H (75-99) mg/dL Assessment and Plan Plan: Nausea and vomiting likely postoperative complication for paraesophageal hernia Esophageal stenosis post dilatation Dysphagia Bilateral pleural effusion Community acquired pneumonia Hypertension CAD Plans: Continue Zofran IV every 6 hours as needed for nausea or vomiting. Continue Tylenol ) as needed for severe pain. Continue Protonix 40 mg IV daily. Discussed with JOHN Tellez, status post EGD with dilation. Due to esophageal stenos is Discontinue Reglan States that this is going on for the past 6 months. Barium swallow shows high- grade obstruction likely secondary to edema. Plans: Follow speech therapy recommendations on diet. Continued on TPN at 70 mL per hour. Plans as above. As seen on CT abdomen and pelvis. Unknown if related to recent surgery. Repeat chest x-ray shows bilateral infiltrate and pleural effusion which is stable. Plans: O2 per NC to maintain O2 saturation greater than 92%. Continue antibiotics and the treatment of pneumonia. As seen on chest x-ray. Plans: Continue with changing from Rocephin to Augmentin, starting PO azithromycin (today will be day 5).Continue discharge patient on oral Levaquin to complete a total of 7 days. BP 118/71. Plans: Continue amlodipine (increased from 2.5-10 mg) and metoprolol. Added hydralazine IV as needed for SBP greater than 200. Insure adequate pain management. Monitor vitals, adjust medications as necessary. Plans: Restart aspirin and Lipitor. Plans for endoscopy on Sunday under Dr. Rodriguez. Symptomatic control of nausea or vomiting. On antibiotics for community acquired pneumonia and pleural effusion. She is pending clinical improvement. Patient finds diet as tolerated to regular diet will plan for discharge tomorrow
[2019-02-05] MEDS: AZITHROMYCIN 250 MG TAB PO SCH (15:44)
[2019-02-05] MEDS: 1: MVI, ADULT NO.4 WITH VIT K 10 ML, TRACE (CONC-1ML/DOSE) 1 ML, SODIUM CHLORIDE 2.5MEQ/ IV SCH ×4 (16:28)
[2019-02-05 16:44] LABS: Glucose,Whole Blood 145 mg/dL (75-99)
[2019-02-05] MEDS: FAT EMULSION 20% 250 ML in EMPTY BAG 1 BAG IV SCH (17:31)
[2019-02-05] MEDS: SENNOSIDES-DOCUSATE SODIUM 1 EACH TAB PO SCH (21:25)
[2019-02-05 23:14] LABS: Glucose,Whole Blood 143 mg/dL (75-99)
[2019-02-06] MEDS: HYDROcodone/APAP 5-325MG 1 EACH TAB PO PRN ×4 (02:31→20:00)
[2019-02-06] MEDS: 1: MVI, ADULT NO.4 WITH VIT K 10 ML, TRACE (CONC-1ML/DOSE) 1 ML, SODIUM CHLORIDE 2.5MEQ/ IV SCH ×4 (06:15)
[2019-02-06 06:16] LABS: Glucose,Whole Blood 136 mg/dL (75-99)
[2019-02-06] MEDS: INSULIN ASPART (NovoLOG) 100 UNIT/ML VIAL SQ SCH ×4 (06:31→22:46)
[2019-02-06 06:37] LABS: African American GFR (CKD) >90 (>60 ml/min/1.73 sqM); Albumin 3.1 g/dL (3.5-5.0); Anion Gap 5 mmol/L; Blood Urea Nitrogen 21 mg/dL (7-17); Calcium 8.8 mg/dL (8.4-10.2); Carbon Dioxide 26 mmol/L (22-30); Chloride 102 mmol/L (98-107); Glucose 138 mg/dL (74-99); Magnesium 2.1 mg/dL (1.6-2.3); Phosphorus 3.5 mg/dL (2.5-4.5); Potassium 4.7 mmol/L (3.5-5.1); Sodium 133 mmol/L (137-145); Triglycerides 94 mg/dL (<150)
[2019-02-06] MEDS: CITALOPRAM HYDROBROMIDE 20 MG TAB PO SCH (08:42)
[2019-02-06] MEDS: ASPIRIN 81 MG PO SCH (08:42)
[2019-02-06] MEDS: PSYLLIUM HUSK 100% 6 GM PACKET PO SCH (08:42)
[2019-02-06] MEDS: HEPARIN SODIUM,PORCINE 5,000 UNIT/ML 1 ML VIAL SQ SCH ×2 (08:42→19:59)
[2019-02-06] MEDS: PANTOPRAZOLE 40 MG/10 ML VIAL IVP SCH ×2 (08:42→20:00)
[2019-02-06] MEDS: METOPROLOL TARTRATE 25 MG TAB PO SCH ×2 (08:42→20:00)
[2019-02-06] MEDS: ATORVASTATIN 40 MG TAB PO SCH (08:42)
[2019-02-06] MEDS: amLODIPine 10 MG TAB PO SCH (08:42)
[2019-02-06] MEDS: BISACODYL 10 MG SUPP RECTAL SCH (08:42)
--- NOTE | 2019-02-06 09:53 | XR ---
EXAMINATION TYPE: XR chest 1V portable DATE OF EXAM: 02/06/2019 COMPARISON: 02/05/2019 HISTORY: Postop TECHNIQUE: Single frontal view of the chest is obtained. FINDINGS: Bilateral consolidation and pleural effusion. Central venous congestion in the differentia l diagnosis. PICC line noted. No pneumothorax. Heart size enlarged. IMPRESSION: 1. A persistent bilateral infiltrate and pleural effusion correlate for pneumonia versus CHF.
[2019-02-06 12:04] LABS: Glucose,Whole Blood 110 mg/dL (75-99)
--- NOTE | 2019-02-06 12:16 | P.PN ---
Subjective Progress Note Date: 02/06/19 Principal diagnosis: Esophageal stenosis, nausea, vomiting, dysphagia, history of recurrent esophageal hernia, status post left thoracotomy with repair of paraesophageal hernia, Ernie Joe procedure, remote history of esophageal hernia repair status post laparoscopic repair in 2004 at [facility], history of coronary artery disease, hypertension, hyperlipidemia, remote history of tobacco dependence, gastroesophageal reflux disease and medication induced acute kidney injury. POD #3 esophagogastroscopy with esophageal dilatation under fluoroscopic guidance The patient is currently sitting up in a recliner in no acute distress. Currently she denies any complaints of pain or shortness of breath. Reports that she did have an episode of stabbing type pain to her left thoracostomy incision site this morning which was self-limiting. Her daughter is at her beds dion, their questions were answered to the best viability. The patient reports that she is feeling slightly better on a daily basis although feels like she is not ready to be discharged home today. She continues to tolerate a full liquid diet without any complaints of nausea. The patient reports that she has been up ambulating in the 3 cardiac stepdown unit hallway with minimal assistance and jiang s been showering on a daily basis. Her nurse reports that yesterday her bowels did move 2. Objective - Vital Signs Vital signs: Vital Signs Temp 98.8 F 02/06/19 08:00 Pulse 81 02/06/19 08:00 Resp 20 02/06/19 08:00 BP 159/76 02/06/19 08:00 Pulse Ox 94 L 02/06/19 08:00 Intake & Output 02/05/19 02/06/19 02/06/19 18:59 06:59 18:59 Intake Total 650 420 120 Output Total 1300 1100 300 Balance -650 -680 -180 Weight 95.3 kg Intake: IV 50 cefTRIAXone 1 gm In 50 Sodium Chloride 0.9% 50 ml @ 100 mls/hr IVPB Q24HR JONNY Rx#:[id number] Oral 600 420 120 Output: Urine 1300 1100 300 Other: Voiding Method Toilet Toilet Toilet # Voids 1 2 # Bowel Movements 1 - Constitutional General appearance: Present: cooperative, no acute distress, obese - Respiratory Details: Lung sounds essentially clear to her bilateral upper lobes, diminished bilateral bases. Respirations are symmetrical and nonlabored. Oxygen saturation is 94% on room air. Achieving 750 mL on her incentive spirometry. - Cardiovascular Details: Regular rhythm and rate. S1 and S2 present, negative for S3, gallop or murmur. Remote telemetry showing normal sinus rhythm heart rate 84. Trace generalized edema present. Knee-high sequential compression devices in place to her bilateral lower extremities. - Gastrointestinal Gastrointestinal Comment(s): Abdomen soft, nontender and nondistended. Hypoactive bowel sounds present in all 4 abdominal quadrants. Tolerating a full liquid diet. Bowel movement yesterday 2. No guarding or rigidity. No organomegaly. - Genitourinary Genitourinary Comment(s): Voiding clear yellow urine. - Integumentary Integumentary Comment(s): Skin is warm and dry. No clubbing or cyanosis is present. No rash or abnormal pigmentation is present. Left thoracotomy incision site is clean, dry and approximated. No drainage or redness is present. - Neurologic Neurologic: Present: CNII-XII intact - Musculoskeletal Musculoskeletal: Present: gait normal, strength equal bilaterally - Psychiatric Psychiatric: Present: A&O x's 3, appropriate affect, intact judgment & insight - Allied health notes Allied health notes reviewed: nursing - Labs CBC & Chem 7: 02/04/19 07:25 02/06/19 06:07 Labs: Abnormal Lab Results - Last 24 Hours (Table) 02/05/19 02/05/19 02/06/19 Range/Units 16:40 23:11 06:07 Sodium 133 L (137-145) mmol/L BUN 21 H (7-17) mg/dL Glucose 138 H (74-99) mg/dL POC Glucose (mg/dL) 145 H 143 H (75-99) mg/dL Albumin 3.1 L (3.5-5.0) g/dL 02/06/19 02/06/19 Range/Units 06:14 11:52 Sodium (137-145) mmol/L BUN (7-17) mg/dL Glucose (74-99) mg/dL POC Glucose (mg/dL) 136 H 110 H (75-99) mg/dL Albumin (3.5-5.0) g/dL - Imaging and Cardiology Chest x-ray: report reviewed, image reviewed Assessment and Plan Assessment: 1. Esophageal stenosis, dysphagia, nausea and vomiting, status post esophagogastroscopy with esophageal dilation 2. Recurrent paraesophageal hernia, status post left thoracotomy with repair of paraesophageal hernia, Ernie-Norma procedure 3. History of paraesophageal hernia status post laparoscopic repair in 2004 at [facility] 4. History of coronary artery disease 5. Hypertension, admitted with hypertensive urgency 6. Hyperlipidemia 7. Previous tobacco dependence 8. History of medication-induced acute kidney injury 9. Gastroesophageal reflux disease Plan: 1. Diet advance to regular diet. Discontinue PPN. The patient has been instructed to sit up to the bedside chair for all meals. She is also been instructed to chew her food well. 2. Encourage incentive spirometry 10 times every hour while awake. 3. Increase activity. She should ambulate in the hallway minimum 4 times daily. PT/OT following. 4. Pain management with current medication regimen. 5. Continue when necessary orders for Bowel regimen. 6. GI/DVT prophylaxis. 7. Medical management of other comorbidities, including antibiotics per primary care service. 8. Dr. Downing has been consulted for possible inpatient rehab placement. 9. More recommendations to follow based on patient's clinical course. Time with Patient: Greater than 30
--- NOTE | 2019-02-06 16:41 | P.CONS ---
History of Present Illness - Chief Complaint Medical debility - History of Present Illness I had the opportunity to see patient for inpatient rehab consultation with regard to medical debility. She was admitted to [facility] January 30 with nausea, emesis, diarrhea. Noted have hiatal hernia and on February 03 underwent esophagogastroscopy with dilatation by Dr. Rodriguez. Chest x-rays followed for effusions. Patient declined OT 2 but OT did, patient ambulating in hallways with family. In fact patient reports independent in room including bathroom and ambulating in hallways on own. Previous functional history as elicited from patient: 68-year-old right-handed white female who is lives in one floor home. 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 Describes independent with cooking, laundry, driving, standing shower, gait without device. Denies tobacco or alcohol. Dr. Miranda Turpin regular doctor. Family history of mother with cardiac disease. Review of Systems Review of systems: ENT: Denies sneezes or discharge. Eyes: Denies discharge or photophobia. Cardiac: Denies chest pain or palpitation. Pulmonary: Denies cough or shortness of breath. Breast: Denies discharge or lumps. Gastrointestinal: Resolved abdominal discomfort. Genitourinary: Denies discharge or frequency. Musculoskeletal: Denies muscle or bone aches. Neurologic: Denies motor or sensory change. Endocrine: Denies shakes or sweats. Oncology: Denies cancers. Dermatologic: Denies rash, itching, pruritus. ALLERGY/immunology: Denies sneezes, rashes. Past Medical History Past Medical History: Coronary Artery Disease (CAD), Eye Disorder, GERD/Reflux, Hyperlipidemia, Hypertension, Renal Disease Additional Past Medical History / Comment(s): History of paraesophageal hernia History of Any Multi-Drug Resistant Organisms: None Reported Past Surgical History: Appendectomy, Heart Catheterization, Hernia Repair, Hysterectomy Additional Past Surgical History / Comment(s): fibroid tumor removal, hiatal hernia, heart catheterization in January 2018 demonstrated a 50% stenosis to her PDA coronary artery, a 50% stenosis to her midportion of her circumflex coronary artery, and a 50% stenosis to her mid left anterior descending coronary artery. 01/23/2019 patient had a paraesophageal hernia repair. Past Anesthesia/Blood Transfusion Reactions: No Reported Reaction Additional Past Anesthesia/Blood Transfusion Reaction / Comm: no hx blood transfusion Past Psychological History: Anxiety, Depression Additional Psychological History / Comment(s): no current medication Smoking Status: Former smoker Past Alcohol Use History: None Reported Additional Past Alcohol Use History / Comment(s): smoked a few years as a teen Past Drug Use History: None Reported - Past Family History Mother Family Medical History: Pulmonary Embolus Additional Family Medical History / Comment(s): Past away from a pulmonary embolus. Father History Unknown: Yes Family Medical History: No Reported History Medications and Allergies Home Medications Medication Instructions Recorded Confirmed Type Metoprolol Tartrate 50 mg PO BID 02/26/17 01/30/19 History Aspirin [Adult Low Dose Aspirin EC] 81 mg PO DAILY 02/18/18 01/30/19 History Atorvastatin [Lipitor] 40 mg PO DAILY 06/06/18 01/30/19 History amLODIPine [Norvasc] 2.5 mg PO DAILY #30 tablet 06/15/18 01/30/19 Rx Acetaminophen Tab [Tylenol] 500 - 1,000 mg PO Q6H PRN 01/17/19 01/30/19 History Citalopram Hydrobromide [CeleXA] 20 mg PO QAM 01/17/19 01/30/19 History Psyllium Husk 100% [Metamucil 6 gm PO DAILY 01/17/19 01/30/19 History Packet] Allergies Allergy/AdvReac Type Severity Reaction Status Date / Time morphine AdvReac Nausea & Verified 01/30/19 15:09 Vomiting Physical Exam Vitals: Vital Signs Temp Pulse Pulse Resp BP Pulse Ox 02/06/19 15:40 98.2 F 75 20 136/67 96 02/06/19 12:00 98.3 F 76 20 146/73 96 02/06/19 08:00 98.8 F 81 20 159/76 94 L 02/06/19 03:18 98.5 F 71 20 135/64 93 L 02/05/19 23:10 98.6 F 89 20 132/61 93 L 02/05/19 21:15 98.3 F 91 18 161/71 96 Intake and Output 02/06/19 02/06/19 02/06/19 06:59 14:59 22:59 Intake Total 720 Output Total 500 300 Balance -500 420 Intake: Oral 720 Output: Urine 500 300 Other: Voiding Method Toilet # Voids 2 Weight 95.3 kg Skin: Good color, texture, turgor. General: Overweight build and comfortable appearance. Head: Normocephalic, atraumatic. Eyes: Symmetric. Pupils equal round. Ears: Symmetric. Hearing within normal limits. Mouth: Clear. Neck: Supple. Carotid without bruit. Cardiac: Regular rate and rhythm. Lungs: Clear anteriorly and posteriorly. Abdomen: Soft active nontender. Extremities: Normal tone. Neurological: Mental status: Alert, cooperative, pleasant. Cranial nerves: Symmetric facial tone and trapezius. Motor: Normal strength and isolation all 4 limbs. Sensation: Intact throughout. DTRs: Symmetric and equal throughout. Mobility: Patient self reports independent in room including bathroom as well as hallway without device Results CBC & Chem 7: 02/04/19 07:25 02/06/19 06:07 Labs: Abnormal Lab Results - Last 24 Hours (Table) 02/05/19 02/05/19 02/06/19 Range/Units 16:40 23:11 06:07 Sodium 133 L (137-145) mmol/L BUN 21 H (7-17) mg/dL Glucose 138 H (74-99) mg/dL POC Glucose (mg/dL) 145 H 143 H (75-99) mg/dL Albumin 3.1 L (3.5-5.0) g/dL 02/06/19 02/06/19 Range/Units 06:14 11:52 Sodium (137-145) mmol/L BUN (7-17) mg/dL Glucose (74-99) mg/dL POC Glucose (mg/dL) 136 H 110 H (75-99) mg/dL Albumin (3.5-5.0) g/dL Assessment and Plan (1) Paraesophageal hiatal hernia Current Visit: Yes Status: Acute Code(s): K44.9 - DIAPHRAGMATIC HERNIA WITHOUT OBSTRUCTION OR GANGRENE SNOMED Code(s): 8752249 Plan: Impression: 1. Medical debility. 2. Esophageal hernia status post dilatation. 3. COPD.. 4. Hypertension. 5. Chronic kidney disease. 6. Coronary artery disease. Comments and plan: At this time patient is declined OT 2. She is however independent in room and hallway. At this time, believe patient ready for return to home. Support services and to resume caregiving per your discretion.
[2019-02-06] MEDS: AZITHROMYCIN 250 MG TAB PO SCH (16:43)
[2019-02-06 17:10] LABS: Glucose,Whole Blood 105 mg/dL (75-99)
[2019-02-06] MEDS: SENNOSIDES-DOCUSATE SODIUM 1 EACH TAB PO SCH (20:00)
[2019-02-06] MEDS: AMOXIC-POT CLAV 875-125MG 1 EACH TAB PO SCH (20:01)
--- NOTE | 2019-02-06 20:39 | P.PN ---
Subjective Progress Note Date: 02/06/19 Principal diagnosis: The patient is a 68-year-old female status post left thoracotomy and Ernie-Norma and repair of recurrent Paraesophageal hernia presented with dysph agia and was admitted for intractable nausea and vomiting was found to have stricture of the distal jordana-esophagus with barium swallow suggested stenosis. The patient was placed on IV fluids later transition to TPN Patient doing well this morning after having EGD with dilatation done 02/03/19, reports her nausea is improved. No acute events overnight, continues on TPN, doing well on clear liquid diet will plan to advance to regular diet later today. Objective - Vital Signs Vital signs: Vital Signs Temp 98.2 F 02/06/19 15:40 Pulse 75 02/06/19 15:40 Resp 20 02/06/19 16:00 BP 136/67 02/06/19 15:40 Pulse Ox 96 02/06/19 15:40 Intake & Output 02/06/19 02/06/19 02/07/19 06:59 18:59 06:59 Intake Total 420 920 Output Total 1100 600 Balance -680 320 Weight 95.3 kg Intake: Oral 420 920 Output: Urine 1100 600 Other: Voiding Method Toilet Toilet # Voids 2 # Bowel Movements 1 - Labs CBC & Chem 7: 02/04/19 07:25 02/06/19 06:07 Labs: Abnormal Lab Results - Last 24 Hours (Table) 02/05/19 02/06/19 02/06/19 Range/Units 23:11 06:07 06:14 Sodium 133 L (137-145) mmol/L BUN 21 H (7-17) mg/dL Glucose 138 H (74-99) mg/dL POC Glucose (mg/dL) 143 H 136 H (75-99) mg/dL Albumin 3.1 L (3.5-5.0) g/dL 02/06/19 02/06/19 Range/Units 11:52 16:50 Sodium (137-145) mmol/L BUN (7-17) mg/dL Glucose (74-99) mg/dL POC Glucose (mg/dL) 110 H 105 H (75-99) mg/dL Albumin (3.5-5.0) g/dL Assessment and Plan Plan: Nausea and vomiting likely postoperative complication for paraesophageal hernia Esophageal stenosis post dilatation Dysphagia Bilateral pleural effusion Community acquired pneumonia Hypertension CAD Plans: Continue Zofran IV every 6 hours as needed for nausea or vomiting. Continue Tylenol ) as needed for severe pain. Continue Protonix 40 mg IV daily. Discussed with JOHN Tellez, status post EGD with dilation. Due to esophageal stenosis Discontinue Reglan States that this is going on for the past 6 months. Barium swallow shows high- grade obstruction likely secondary to edema. Plans: Follow speech therapy recommendations on diet. Continued on TPN at 70 mL per hour. Plans as above. As seen on CT abdomen and pelvis. Unknown if related to recent surgery. Repeat chest x-ray shows bilateral infiltrate and pleural effusion which is stable. Plans: O2 per NC to maintain O2 saturation greater than 92%. Continue an tibiotics and the treatment of pneumonia. As seen on chest x-ray. Plans: Continue with changing from Rocephin to Augmentin, starting PO azithromycin (today will be day 5).Continue discharge patient on oral Levaquin to complete a total of 7 days. BP 118/71. Plans: Continue amlodipine (increased from 2.5-10 mg) and metoprolol. Added hydralazine IV as needed for SBP greater than 200. Insure a dequate pain management. Monitor vitals, adjust medications as necessary. Plans: Restart aspirin and Lipitor. Plans for endoscopy on Sunday under Dr. Rodriguez. Symptomatic control of nausea or vomiting. On antibiotics for community acquired pneumonia and pleural effusion. She is pending clinical improvement. Patient finds diet as tolerated to regular diet will plan for discharge tomorrow
[2019-02-07 06:16] LABS: HCT 31.7 % (34.0-46.0); HGB 10.3 gm/dL (11.4-16.0); MCH 31.1 pg (25.0-35.0); MCHC 32.4 g/dL (31.0-37.0); MCV 95.9 fL (80.0-100.0); Mean Platelet Volume 8.7; Platelet Count 463 k/uL (150-450); RBC 3.31 m/uL (3.80-5.40); RDW 14.1 % (11.5-15.5); WBC 14.6 k/uL (3.8-10.6)
[2019-02-07 06:35] LABS: Calcium 8.9 mg/dL (8.4-10.2); Phosphorus 4.2 mg/dL (2.5-4.5); Potassium 4.9 mmol/L (3.5-5.1)
[2019-02-07] MEDS ORDERED: PANTOPRAZOLE 40 MG TABLET PO SCH (07:30)
[2019-02-07] MEDS: AMOXIC-POT CLAV 875-125MG 1 EACH TAB PO SCH (08:21)
[2019-02-07] MEDS: ASPIRIN 81 MG PO SCH (08:21)
[2019-02-07] MEDS: HEPARIN SODIUM,PORCINE 5,000 UNIT/ML 1 ML VIAL SQ SCH (08:21)
[2019-02-07] MEDS: METOPROLOL TARTRATE 25 MG TAB PO SCH (08:21)
[2019-02-07] MEDS: PSYLLIUM HUSK 100% 6 GM PACKET PO SCH (08:21)
[2019-02-07] MEDS: HYDROcodone/APAP 5-325MG 1 EACH TAB PO PRN ×2 (08:21→13:32)
[2019-02-07] MEDS: ATORVASTATIN 40 MG TAB PO SCH (08:21)
[2019-02-07] MEDS: amLODIPine 10 MG TAB PO SCH (08:21)
[2019-02-07] MEDS: CITALOPRAM HYDROBROMIDE 20 MG TAB PO SCH (08:21)
[2019-02-07 08:35] VITALS: TEMP 98.1
--- NOTE | 2019-02-07 09:57 | P.PN ---
Subjective Progress Note Date: 02/07/19 Principal diagnosis: Esophageal stenosis, nausea, vomiting, dysphagia, history of recurrent esophageal hernia, status post left thoracotomy with repair of paraesophageal hernia, Ernie Joe procedure. Remote history of esophageal hernia repair status post laparoscopic repair in 2004 at [facility], history of coronary artery disease, hypertension, hyperlipidemia, previous tobacco dependence, gastroesophageal reflux disease and medication induced acute kidney injury. POD #4 esophagogastroscopy with esophageal dilatation under fluoroscopic guidance The patient is currently sitting up in a recliner in no acute distress. Does state she is feeling a little better, has been able to tolerate full diet without nausea and vomiting. She has been ambulatory in the hallway. Objective - Vital Signs Vital signs: Vital Signs Temp 98.1 F 02/07/19 08:00 Pulse 86 02/07/19 08:00 Resp 16 02/07/19 08:00 BP 148/74 02/07/19 08:00 Pulse Ox 95 02/07/19 08:00 Intake & Output 02/06/19 02/07/19 02/07/19 18:59 06:59 18:59 Intake Total 920 Output Total 600 1300 Balance 320 -1300 Weight 93.8 kg Intake: Oral 920 Output: Urine 600 1300 Other: Voiding Method Toilet Toilet # Voids 2 # Bowel Movements 1 - Constitutional General appearance: Present: cooperative, no acute distress, obese - Respiratory Details: Lungs sounds clear but diminished in the bases bilaterally. Respirations even, nonlabored. Currently on room air with oxygen saturation 94%. Able to achieve 1250 mL on her incentive spirometer. - Cardiovascular Details: S1, S2 present. Regular rate and rhythm, sinus rhythm on telemetry. Palpable peripheral pulses bilaterally. No edema present. No calf pain or tenderness noted. SCDs present. - Gastrointestinal Gastrointestinal Comment(s): Abdomen soft, nontender, nondistended. Active bowel sounds present 4 quadrants. Tolerating diet. Positive bowel movement. - Genitourinary Genitourinary Comment(s): Continues to void clear, yellow urine. - Integumentary Integumentary Comment(s): Skin is warm and dry with evidence of good perfusion. Left lateral surgical incision well approximated without drainage. - Neurologic Neurologic: Present: CNII-XII intact - Musculoskeletal Musculoskeletal: Present: gait normal, strength equal bilaterally - Psychiatric Psychiatric: Present: A&O x's 3, appropriate affect, intact judgment & insight - Allied health notes Allied health notes reviewed: nursing - Labs CBC & Chem 7: 02/07/19 05:36 02/07/19 05:36 Labs: Abnormal Lab Results - Last 24 Hours (Table) 02/06/19 02/06/19 02/07/19 Range/Units 11:52 16:50 05:36 WBC (3.8-10.6) k/uL RBC (3.80-5.40) m/uL Hgb (11.4-16.0) gm/dL Hct (34.0-46.0) % Plt Count (150-450) k/uL Sodium 136 L (137-145) mmol/L POC Glucose (mg/dL) 110 H 105 H (75-99) mg/dL 02/07/19 Range/Units 05:36 WBC 14.6 H (3.8-10.6) k/uL RBC 3.31 L (3.80-5.40) m/uL Hgb 10.3 L (11.4-16.0) gm/dL Hct 31.7 L (34.0-46.0) % Plt Count 463 H (150-450) k/uL Sodium (137-145) mmol/L POC Glucose (mg/dL) (75-99) mg/dL Assessment and Plan Assessment: 1. Esophageal stenosis. Nausea, vomiting, dysphagia. Status post esophagogastroscopy with esophageal dilatation 2. Recurrent paraesophageal hernia, status post left thoracotomy with repair of paraesophageal hernia, Ernie-Norma procedure 3. History of paraesophageal hernia status post laparoscopic repair in 2004 at [facility] 4. History of coronary artery disease 5. Hypertension 6. Hyperlipidemia 7. Previous tobacco dependence 8. History of medication-induced acute kidney injury 9. GERD Plan: 1. Patient is tolerating full diet and has had a bowel movement. From our standpoint she can be discharged to home. Appointment has been made for Dr. Rodriguez. It was stressed to the patient that she needs to take small bites of food and chew her food very carefully. 2. Encourage incentive spirometry 10 times every hour while awake. 3. Increase activity. Patient needs to be out of bed and up in chair for all oral intake. She should ambulate in the hallway minimum 4 times daily. PT/OT following. 4. Pain management with current medication regimen. 5. GI/DVT prophylaxis. 6. Medical management of other comorbidities per primary care service. 7. Will continue to see on an as-needed basis while hospitalized. Time with Patient: Greater than 30
[2019-02-07] MEDS: BISACODYL 10 MG SUPP RECTAL SCH (10:34)
[2019-02-07 10:56] VITALS: BP 147/67; PULSE 77; RESP 18
--- NOTE | 2019-02-07 11:57 | P.DS ---
Providers Date of admission: 01/30/19 17:02 Expected date of discharge: 02/07/19 Attending physician: Marvin Marie MD Consults: 01/30/19 16:54 Consult Physician Routine Consulting Provider: Taylor Sánchez Consult Reason/Comments: postOp Do you want consulting provider notified?: Yes 02/06/19 10:36 Consult Physician Routine Consulting Provider: Nilton Downing Consult Reason/Comments: Inpatient rehab placement Do you want consulting provider notified?: Yes Primary care physician: Miranda Turpin - Discharge Diagnosis(es) (1) Esophageal stenosis Current Visit: Yes Status: Acute (2) S/P dilatation of esophageal stricture Current Visit: Yes Status: Acute (3) Paraesophageal hiatal hernia Current Visit: Yes Status: Acute (4) Intractable nausea and vomiting Current Visit: Yes Status: Acute (5) Pneumonia Current Visit: Yes Status: Acute Hospital Course: The patient is a 68-year-old female with a past medical history of recurrent esophageal hernia status post left thoracotomy with repair of paraeso phageal hernia, Ernie-Norma procedure that was admitted for intractable nausea and vomiting further found to have severe esophageal stenosis and is admitted for IV rehydration treated with anti-emetics Zofran and Reglan and was started on empiric treatment for presumed community-acquired pneumonia with Rocephin and azithromycin After chest x-ray showed bilateral lower lobe infiltrates. The patient was started on TPN to address her nutritional needs. Dr. Rodriguez was consulted and the patient had a EGD with esophageal dilation under fluoroscopic guidance. The patient's diet was gradually advanced from clears to a full diet and she was subsequently discharged home with home health services in stable condition and instructed to follow-up with her PCP Dr. Turpin02/10/[address] Rodriguez 02/13/19 this discharge process took approximately 35 minutes Focused exam GI : Soft nontender nondistended, normoactive bowel sounds in all 4 quadrants, had a bowel movement earlier today, nonacute abdomen. Patient Condition at Discharge: Good Plan - Discharge Summary Discharge Rx Participant: Yes New Discharge Prescriptions: New Amoxic-Pot Clav 875-125Mg [Augmentin 875-125] 1 each PO Q12HR #6 tab amLODIPine [Norvasc] 10 mg PO DAILY #30 tab Pantoprazole [Protonix] 40 mg PO AC-BID #60 tablet.dr Azithromycin [Zithromax] 250 mg PO DAILY@1600 #3 tab Continue Metoprolol Tartrate 50 mg PO BID Aspirin [Adult Low Dose Aspirin EC] 81 mg PO DAILY Atorvastatin [Lipitor] 40 mg PO DAILY Citalopram Hydrobromide [CeleXA] 20 mg PO QAM Psyllium Husk 100% [Metamucil Packet] 6 gm PO DAILY Acetaminophen Tab [Tylenol] 500 - 1,000 mg PO Q6H PRN PRN Reason: Pain Discontinued amLODIPine [Norvasc] 2.5 mg PO DAILY #30 tablet Discharge Medication List Metoprolol Tartrate 50 mg PO BID 02/26/17 [History] Aspirin [Adult Low Dose Aspirin EC] 81 mg PO DAILY 02/18/18 [History] Atorvastatin [Lipitor] 40 mg PO DAILY 06/06/18 [History] Acetaminophen Tab [Tylenol] 500 - 1,000 mg PO Q6H PRN 01/17/19 [History] Citalopram Hydrobromide [CeleXA] 20 mg PO QAM 01/17/19 [History] Psyllium Husk 100% [Metamucil Packet] 6 gm PO DAILY 01/17/19 [History] Amoxic-Pot Clav 875-125Mg [Augmentin 875-125] 1 each PO Q12HR #6 tab 02/07/19 [Rx] Azithromycin [Zithromax] 250 mg PO DAILY@1600 #3 tab 02/07/19 [Rx] Pantoprazole [Protonix] 40 mg PO AC-BID #60 tablet. 02/07/19 [Rx] amLODIPine [Norvasc] 10 mg PO DAILY #30 tab 02/07/19 [Rx] Follow up Appointment(s)/Referral(s): Philip Rodriguez MD [STAFF PHYSICIAN] - 02/13/19 1:00 pm [facility], [NON-STAFF] - Miranda Turpin MD [Primary Care Provider] - 02/10/19 10:30 am (Sunday -with MATERIAL ASSISTANT)
[2019-02-07 12:15] VITALS: BMI 36.6
== END 2019-02-07 14:00 | disposition home health service (06) | DRG 391 ==
LOC: EC 14:52 → 3SCARD 17:02
PROVIDERS: ADMIT Family Medicine; ATTEND Family Medicine
PROC: 02HV33Z Insertion of Infusion Device into Superior Vena Cava, Percutaneous Approach (ICD-10-PCS; 2019-01-31)
PROC: 3E0436Z Introduction of Nutritional Substance into Central Vein, Percutaneous Approach (ICD-10-PCS; 2019-01-31)
PROC: 0D758ZZ Dilation of Esophagus, Via Natural or Artificial Opening Endoscopic (ICD-10-PCS; principal; 2019-02-03 07:55)
DX: K22.2 Esophageal obstruction (principal); J18.9 Pneumonia, unspecified organism; J91.8 Pleural effusion in other conditions classified elsewhere; R13.10 Dysphagia, unspecified; E78.5 Hyperlipidemia, unspecified; E86.0 Dehydration; F32.9 Major depressive disorder, single episode, unspecified; F41.9 Anxiety disorder, unspecified; I16.0 Hypertensive urgency; I10 Essential (primary) hypertension; I25.10 Atherosclerotic heart disease of native coronary artery without angina pectoris; K21.9 Gastro-esophageal reflux disease without esophagitis; E66.9 Obesity, unspecified; Z68.36 Body mass index [BMI] 36.0-36.9, adult; Z79.82 Long term (current) use of aspirin; Z79.899 Other long term (current) drug therapy; Z87.891 Personal history of nicotine dependence; Z90.710 Acquired absence of both cervix and uterus; Z90.49 Acquired absence of other specified parts of digestive tract; Z82.49 Family history of ischemic heart disease and other diseases of the circulatory system
CPT/HCPCS: 36573; 43249; 71045; 71046; 74018; 74220; 76000; 80048; 80053; 82040; 82330; 83735; 84100; 84478; 84484; 85025; 85027; 93005; 99285

== ENCOUNTER → 2019-09-17 | Outpatient (CLI) | payer MEDICARE ==
--- NOTE | 2019-09-17 16:04 | CT ---
EXAMINATION TYPE: CT abdomen wo con DATE OF EXAM: 09/17/2019 COMPARISON: 06/14/2018 HISTORY: 68-year-old female with diaphragmatic hernia TECHNIQUE: Contiguous axial scanning of the abdomen without IV contrast. Coronal and sagittal reconst ructions performed. CT DLP: 527.8 mGycm Automated exposure control for dose reduction was used. FINDINGS: Heart size with trace anterior basilar pericardial fluid. Some minimal strandy atelectasis at the philipp g bases. There is post surgical change at the diaphragmatic hiatus with staple lines in residual small hiatal hernia containing intra-abdominal fat and suspected small portion of the gastric fundus. Circumferent ial thickening here suspected to correspond to stomach wall. However, given some possible soft tissue shouldering, refer to axial image 15, direct visualization can exclude underlying neoplasm. Noncontrast appearance of the liver, gallbladder, adrenal glands, and atrophic pancreas show no gross interbody. Spleen is not visualized. Suspect an anterior splenule in the left upper quadrant. Redemonstrated lobulated contours to the kidneys. Suspected 1.2 cm cortical cyst lateral upper pole r ight kidney, unchanged from 01/30/2019. No dilated small bowel, free fluid, or free air. Moderate stool burden particularly in the right hemicolon without pericolonic inflammatory change. No mesenteric or retroperitoneal lymphadenopathy. Bones: Degenerated extra convex scoliosis along the upper lumbar spine. Lower thoracic kyphosis. IMPRESSION: 1. POSTSURGICAL CHANGE ALONG THE DIAPHRAGMATIC HIATUS WITH PARTIAL CLOSURE OF A LARGE DIAPHRAGMATIC D EFECT SEEN PREVIOUSLY ON 06/14/2018. RESIDUAL SMALL HIATAL HERNIA CONTAINING SOME INTRA-ABDOMINAL FAT AND SMALL PORTION OF THE GASTRIC FUNDUS IS DEMONSTRATED. 2. SOME CIRCUMFERENTIAL THICKENING HERE IS SUSPECTED TO CORRESPOND TO CROWDED STOMACH WALL. GIVEN POS SIBLE SOFT TISSUE SHOULDERING, DIRECT VISUALIZATION CAN EXCLUDE UNDERLYING NEOPLASM.
== END | disposition home or self-care (01) ==
LOC: RADCTMAIN 13:17
PROVIDERS: ATTEND Thoracic Surgery (Cardiothoracic Vascular Surgery)
DX: K44.9 Diaphragmatic hernia without obstruction or gangrene (principal); Z98.890 Other specified postprocedural states; Z88.5 Allergy status to narcotic agent
CPT/HCPCS: 74150; 82565; 84520